=== PATIENT | female | born 1945 | race Caucasian/White ===

== ENCOUNTER 2019-06-26 23:48 | Emergency (ER) | payer MEDICARE, MEDICAID, SELFPAY ==
--- NOTE | ~2019-06-26 | CT_ITS ---
EXAMINATION: CT brain wo con DATE: 06/27/2019 01:17 INDICATION: Altered mental status TECHNIQUE: Computed tomography (CT) of the head was performed without intravenous contrast. The mA wa s adjusted according to patient size. Iterative reconstruction technique was employed. Exam dose: 60 5.33 mGy-cm total exam DLP. COMPARISON: 03/11/2018 CT brain FINDINGS: There is moderate global cerebellar and cerebral volume loss. No intracranial mass lesion or hemorrhage or cerebrovascular accident is evident. No midline shift or mass effect. No subdural or epidural hematoma. There are prominent bilateral carotid siphon internal carotid artery calcifications. Probable pilar cysts in posterior scalp near convexity. No fracture or bone destruction of the cranial vault. Left parietal osteoma. There are some fluid levels in the right maxillary and both sphenoid sinuses and some soft tissue thi ckening of the ethmoid air cells. IMPRESSION: No acute intracranial finding Sinus disease Reviewed, dictated and finalized at [facility]. Reviewed, dictated and finalized at [facility].
--- NOTE | ~2019-06-26 | XR_ITS ---
XR chest 1V portable DATE: 06/27/2019 00:38 INDICATION: Cough. Covid positive patient. TECHNIQUE: Portable upright AP chest on 06/27/2019 at 0034 hours COMPARISON: 07/29/2018 portable AP chest FINDINGS: There is prominent patchy infiltrate throughout the right lung and primarily left mid and l ower lung zones. There is elevation of the right leaf of the diaphragm. Cardiomegaly. No pleural effusion or pneumothorax is evident. Diffuse osteopenia. IMPRESSION: Extensive bilateral pulmonary arteries, right greater than left Elevation right diaphragm Reviewed, dictated and finalized at [facility].
--- NOTE | 2019-06-26 23:39 | ED.GENADULT ---
HPI - General Adult General Chief complaint: Unspecified Stated complaint: dehydration? Source: patient and EMS Mode of arrival: ambulatory History of Present Illness HPI narrative: Patient is a 73-year-old female who presents for evaluation of possible dehydration. Per EMS and nursing report, patient has been diagnosed with coronavirus, family was concerned she is becoming dehydrated. Patient states she has been tolerating oral intake without nausea or vomiting. She has had oxygen saturations above 92% on room air, however the fci place her on 1 L for comfort with saturations improving to 96%. Patient denied any head, chest, belly pain or shortness of breath. Patient reports cough, decreased oral intake. She reports lack of appetite. Pt state she did not want to come to the emergency department. Patient has a history of tibia fracture, states that she has been nonambulatory for 20 years. Patient is a DNR patient, but patient approves intubation and peripheral pressors if needed. Patient does have a history of frequent urinary tract infections. Related Data Home Medications Medication Instructions Recorded Confirmed acetaminophen 325 mg capsule 325 mg PO Q6H PRN 02/16/19 aspirin 325 mg tablet 325 mg PO DAILY 02/16/19 clonazepam 1 mg tablet 1 mg PO DAILY 02/16/19 docusate sodium 100 mg capsule 100 mg PO DAILY 02/16/19 ergocalciferol (vitamin D2) 50,000 unit PO 02/16/19 unit tablet fluticasone propionate 50 1 spray NASAL DAILY PRN 02/16/19 mcg/actuation nasal spray,suspension furosemide 40 mg/4 mL oral solution 10 mg PO DAILY 02/16/19 gabapentin 300 mg/6 mL (6 mL) oral 100 mg PO DAILY 02/16/19 solution guaifenesin 600 mg tablet, 600 mg PO BID PRN 02/16/19 extended release 12 hr loperamide 2 mg tablet 2 mg PO Q4H 02/16/19 meloxicam 7.5 mg tablet 7.5 mg PO DAILY 02/16/19 midodrine 5 mg tablet 5 mg PO TID 02/16/19 mirabegron 25 mg tablet,extended 25 mg PO DAILY 02/16/19 release 24 hr omeprazole 20 mg capsule,delayed 20 mg PO DAILY 02/16/19 release ondansetron 4 mg oral soluble film 4 mg PO DAILY 02/16/19 polyethylene glycol 3350 17 8.5 gm PO DAILY PRN 02/16/19 gram/dose oral powder pravastatin 20 mg tablet 20 mg PO DAILY 02/16/19 psyllium husk 0.52 gram capsule 0.52 gm PO DAILY 02/16/19 sennosides 8.6 mg-docusate sodium 1 tab-cap PO DAILY 02/16/19 50 mg capsule simethicone 80 mg chewable tablet 80 mg PO BID 02/16/19 terbinafine HCl 250 mg tablet 250 mg PO DAILY 02/16/19 tizanidine 2 mg capsule 2 mg PO Q12H PRN 02/16/19 oseltamivir 75 mg capsule 75 mg PO DAILY 05/25/19 trazodone 50 mg tablet 50 mg PO TID 05/25/19 Allergies Allergy/AdvReac Type Severity Reaction Status Date / Time adhesive Allergy Unknown BLISTERS Verified 05/25/19 12:31 Review of Systems Review of Systems: Narrative: CONSTITUTIONAL: Denies fever, chills, or sweats. EYES: Denies visual changes, redness, or discharge. ENT: Reports congestion CARDIOVASCULAR: Denies chest pain RESPIRATORY: Reports cough,denies dyspnea GASTROINTESTINAL: Denies abdominal pain, nausea, vomiting, or diarrhea. GENITOURINARY: Denies dysuria or hematuria. SKIN: Denies rash or itching. MUSCULOSKELETAL: Denies back pain, denies joint pain,reports myalgias NEUROLOGIC: Denies headache, numbness, reports chronic leg weakness PMFSH Past Medical History Medical History (Updated 06/27/19 @ 01:46 by Kaitlin Kay MD) Anemia Anxiety disorder Ataxia DVT (deep venous thrombosis) Gastro-esophageal reflux Hyperlipidemia Hypotension Seizure Tinea unguium Urinary tract infection Vitamin A deficiency Weakness Wheelchair dependence Social History Social History Smoking status: Never smoker Second hand tobacco smoke exposure: No Alcohol intake: never Gender identity (if verbalized by the patient): Female Exam Narrative: Exam Narrative: GENERAL: Awake, alert,
[2019-06-27] VITALS (8 sets, daily range): BP systolic 111–126; BP diastolic 48–76; PULSE 59–76; RESP 20–25; TEMP 36.7–37.2; O2SAT 89–98
--- NOTE | 2019-06-27 00:05 | ECG_ITS ---
Measurements Intervals [place] Rate: 65 P: 78 GA: 184 QRS: 34 QRSD: 80 T: 10 QT: 438 QTc: 456 Interpretive Statements SINUS RHYTHM NONSPECIFIC T-WAVE ABNORMALITY- ANT/INF LEADS BORDERLINE ECG Electronically Signed On 06-27-2019 8:09:53 CDT by Nnamdi Liu D.O.
--- NOTE | 2019-06-27 00:31 | PC.NURSE ---
pt placed on 1L o2 at this time due to low o2 sats. edp notified.
[2019-06-27] MEDS: SODIUM CHLORIDE 0.9% IV 500 ML (00:32)
[2019-06-27 00:43] LABS: Hematocrit 36.2 % (37.0-47.0); Hemoglobin 11.9 g/dL (12.0-15.0); Immature Granulocyte Absolute 0.02 K/mm3 (0.00-0.031); Immature Granulocyte Percent A 0.7 % (0-0.5); Lymphocytes Absolute Auto 0.55 K/mm3 (0.9-3.2); Lymphocytes Percent Auto 19.5 % (18.3-44.2); Mean Corpuscular HGB Conc 32.9 g/dl (32-36); Mean Corpuscular Hemoglobin 29.7 pg (26-34); Mean Corpuscular Volume 90.3 fl (80-100); Mean Platelet Volume 9.1 fl (7.4-10.4); Monocytes Absolute Auto 0.3 K/mm3 (0.1-0.6); Monocytes Percent Auto 10.3 % (2.6-8.5); Neutrophils Percent Auto 69.5 % (45.5-73.1); Platelet Count Result 162 k/mm3 (150-375); Red Blood Count 4.01 M/mm3 (4.2-5.4); Red Cell Distribution Width 13.4 % (11.5-14.5); White Blood Count 2.8 K/mm3 (4.5-10.0)
[2019-06-27] MEDS: SODIUM CHLORIDE 0.9% IV 1,000 ML 999 ML IV CONT (00:43)
[2019-06-27] MEDS: ONDANSETRON INJ 4 MG/2 ML VIAL IV PUSH (00:43)
[2019-06-27 00:47] LABS: Alanine Aminotransferase 36 U/L (4-35); Albumin Level 3.7 g/dL (3.5-5.1); Alkaline Phosphatase 275 U/L (38-126); Aspartate Amino Transferase 82 U/L (14-36); Bilirubin,Total 0.8 mg/dL (0.2-1.3); Blood Urea Nitrogen 20 mg/dL (7-17); Calcium 8.5 mg/dL (8.4-10.2); Carbon Dioxide 29 mmol/L (22-30); Chloride 102 mmol/L (98-107); Estimated Glomerular Filt Rate 49; Glucose 119 mg/dL (65-105); Potassium 3.4 mmol/L (3.4-5.0); Sodium 137 mmol/L (137-145)
[2019-06-27 00:48] LABS: Add Urine Microscopic? YES; Appearance Urine Cloudy (Clear); Bacteria Urine 2+ /hpf; Bilirubin Urine Negative (Negative); Blood Urine 2+ (Negative); Color Urine Amber (Yellow); Glucose Urine UA Negative (Negative); Ketones Urine Trace mg/dL (Negative); Leukocyte Esterase Ur 2+ LEU/UL (Negative); Mucus Urine Rare /lpf; Nitrate Urine Negative (Negative); Protein Urine 2+ mg/dL (Negative); Specific Grav Ur 1.018 (1.001-1.035); Squamous Epithelial Cell Urine Many /hpf (Few); WBC Urine 31-50 /hpf
[2019-06-27 01:02] LABS: Lactic Acid Reflex 0.9 mmol/L (0.7-2.1)
[2019-06-27] MEDS: CEPHALEXIN 500 MG CAPSULE PO (01:36)
--- NOTE | 2019-06-27 01:54 | PC.NURSE ---
FAMILY SPOKE WITH ED IDR[facility] AND GIVEN UPDATE. PATIENT [facility] BE S[facility]. FAMILY AND FACILITY AWARE.
--- NOTE | 2019-06-27 04:14 | PC.NURSE ---
0151-called [facility] to request transport..ETA [id number]- called [facility] for ETA update. ETA [id number] 0411- called [facility] for ETA update. ETA 15 minutes.
--- NOTE | 2019-06-27 04:21 | PC.NURSE ---
[facility] called and updated ETA to [phone]
--- NOTE | 2019-06-27 04:42 | PC.NURSE ---
Called [facility] to request transport. [facility] declined.
== END 2019-06-27 06:04 | disposition home or self-care (01) ==
PROVIDERS: Emergency Provider Emergency Medicine; PCP Family Medicine
DX: U07.1 COVID-19 (principal); N39.0 Urinary tract infection, site not specified; D64.9 Anemia, unspecified; F41.9 Anxiety disorder, unspecified; Z86.718 Personal history of other venous thrombosis and embolism; K21.9 Gastro-esophageal reflux disease without esophagitis; E78.5 Hyperlipidemia, unspecified; E50.9 Vitamin A deficiency, unspecified; Z99.3 Dependence on wheelchair; Z66 Do not resuscitate; Z79.82 Long term (current) use of aspirin
CPT/HCPCS: 36415; 70450; 71045; 80053; 81001; 83605; 85025; 87077; 87086; 87088; 87186; 93005; 96361; 96374; 99284; A9270; J2405; J7030; J7040

== ENCOUNTER 2020-01-26 10:47 | Outpatient (CLI) | payer MEDICARE, MEDICAID, SELFPAY ==
--- NOTE | ~2020-01-26 | US_ITS ---
EXAMINATION: US abdomen complete DATE: 01/26/2020 11:45 INDICATION: Secondary thrombocytopenia TECHNIQUE: Multiple grayscale and Doppler ultrasound images of the abdomen were obtained. COMPARISON: CT, 02/06/2013 FINDINGS: Bowel gas obscures visualization of the pancreas. The liver demonstrates increased echogeni city, heterogenous echotexture, and decreased through transmission. There is a 2.8 cm cyst of the mykel er. No surface nodularity. Normal hepatopetal flow in the main portal vein. The gallbladder is surgic ally absent. The normal common bile duct measures 7 mm. The visualized portions of the aorta are norm al. The kidneys are not well demonstrated. The right kidney measures 7.9 x 3.6 x 4.6 cm. The left kidney measures 7.3 x 3.5 x 4.1 cm. The kidneys demonstrate normal parenchymal echogenicity. There is no hyd ronephrosis. The enlarged spleen measures 15.1 cm IMPRESSION: 1. Splenomegaly. 2. Diffuse hepatic steatosis. Reviewed, dictated and finalized at [facility]. 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
[2020-01-26 12:10] LABS: Alanine Aminotransferase 32 U/L (4-35); Albumin Level 3.9 g/dL (3.5-5.1); Alkaline Phosphatase 86 U/L (38-126); Anion Gap 9 mmol/L (8-16); Aspartate Amino Transferase 32 U/L (14-36); Bilirubin,Total 0.9 mg/dL (0.2-1.3); Blood Urea Nitrogen 17 mg/dL (7-17); Calcium 9.3 mg/dL (8.4-10.2); Carbon Dioxide 24 mmol/L (22-30); Chloride 107 mmol/L (98-107); Estimated Glomerular Filt Rate 44; Glucose 164 mg/dL (65-105); Lactate Dehydrogenase 368 U/L (313-618); Potassium 4.5 mmol/L (3.4-5.0); Sodium 140 mmol/L (137-145)
[2020-01-26 12:31] LABS: Basophils Percent Auto 0.7 % (0.2-1.2); Eosinophils Absolute Auto 0.3 K/mm3 (0-0.3); Eosinophils Percent Auto 6.5 % (0-4.4); Hematocrit 42.5 % (37.0-47.0); Hemoglobin 13.9 g/dL (12.0-15.0); Immature Granulocyte Absolute 0.02 K/mm3 (0.00-0.031); Immature Granulocyte Percent A 0.4 % (0-0.5); Immature Platelet Fraction Pct 2.5 % (0.9-11.2); Immature Reticulocyte Fraction 11.8 % (3.0-15.9); Lymphocytes Percent Auto 17.4 % (18.3-44.2); Mean Corpuscular HGB Conc 32.7 g/dl (32-36); Mean Corpuscular Volume 91.6 fl (80-100); Mean Platelet Volume 10.5 fl (7.4-10.4); Monocytes Absolute Auto 0.3 K/mm3 (0.1-0.6); Monocytes Percent Auto 6.7 % (2.6-8.5); Neutrophils Absolute Auto 3.2 K/mm3 (1.3-6.7); Neutrophils Percent Auto 68.3 % (45.5-73.1); Platelet Count Result 33 k/mm3 (150-375); Red Blood Count 4.64 M/mm3 (4.2-5.4); Red Cell Distribution Width 12.6 % (11.5-14.5); Reticulocyte Hemoglobin Conten 32.6 pg (28.2-35.7); Reticulocyte Percent 1.57 % (0.7-4.3); Reticulocytes Absolute 0.07 B/L (32.2-175.7); White Blood Count 4.6 K/mm3 (4.5-10.0)
[2020-01-26 12:39] LABS: Iron 48 ug/dL (37-170)
[2020-01-26 12:48] LABS: Percent Iron Saturation 18 % (20-50)
== END 2020-01-26 10:48 | disposition home or self-care (01) ==
PROVIDERS: PCP Family Medicine; Visit Provider Internal Medicine Hematology & Oncology
DX: D69.59 Other secondary thrombocytopenia (principal); R16.1 Splenomegaly, not elsewhere classified; K76.0 Fatty (change of) liver, not elsewhere classified
CPT/HCPCS: 36415; 76700; 80053; 82607; 82728; 82746; 83540; 83550; 83615; 85025; 85046; 85055

== ENCOUNTER 2020-02-15 13:15 | Emergency (ER) | payer MEDICARE, MEDICAID, SELFPAY ==
[2020-02-15] VITALS (7 sets, daily range): BP systolic 98–117; BP diastolic 60–73; PULSE 56–63; RESP 14–19; TEMP 36.9; O2SAT 95–99
--- NOTE | 2020-02-15 13:35 | PC.NURSE ---
resting on stretcher. on monitor. has call light in reach. patient aware of expected wait time. patient now states she was scheduled for an appointment at this hospital today for a biopsy of some nodes and an ultrasound of her chest. no other details given.
--- NOTE | 2020-02-15 15:32 | ED.GENADULT ---
HPI - General Adult General Chief complaint: Wound/Laceration Stated complaint: Red Streak inner thigh Time Seen by Provider: 02/15/20 13:46 Source: patient Mode of arrival: EMS Limitations: no limitations History of Present Illness HPI narrative: Patient presents with chief complaint of red streak on the anterior aspect of her right thigh earlier today. Patient states the streak started to faint but she already cannot be admitted so she presented to the emergency department. Patient denies fever, chills, nausea, vomiting. Patient states that she is due to have blood work and imaging done by Dr. Goddard. Patient wants those testings performed in the emergency department. The patient states that she is now resolved. There is not pain or any other abnormalities to the area. Patient has been bedbound for 20 years due to brain tumor. Patient denies chest pain, shortness of breath, diaphoresis or any other emergent symptoms. Related Data Home Medications Medication Instructions Recorded Confirmed clonazepam 1 mg tablet 1 mg PO DAILY 02/16/19 08/24/19 ergocalciferol (vitamin D2) 50,000 unit PO 02/16/19 08/24/19 unit tablet fluticasone propionate 50 1 spray NASAL DAILY PRN 02/16/19 08/24/19 mcg/actuation nasal spray,suspension gabapentin 300 mg/6 mL (6 mL) oral 100 mg PO DAILY 02/16/19 08/24/19 solution midodrine 5 mg tablet 5 mg PO TID 02/16/19 08/24/19 omeprazole 20 mg capsule,delayed 20 mg PO DAILY 02/16/19 08/24/19 release pravastatin 20 mg tablet 20 mg PO DAILY 02/16/19 08/24/19 trazodone 50 mg tablet 50 mg PO TID 05/25/19 08/24/19 albuterol sulfate 90 mcg/actuation 1 inhalation INHALATION Q4-6H PRN 08/24/19 08/24/19 breath activated powder inhaler gabapentin 300 mg TID 02/15/20 linaclotide [Linzess] mcg 02/15/20 mirabegron [Myrbetriq] mg PO 02/15/20 tramadol mg 02/15/20 Allergies Allergy/AdvReac Type Severity Reaction Status Date / Time adhesive Allergy Unknown BLISTERS Verified 02/15/20 14:06 Review of Systems Review of Systems: Narrative: CONSTITUTIONAL: Denies fever, chills, or sweats. EYES: Denies visual changes, redness, or discharge. ENT: Denies rhinorrhea, congestion, sore throat, or otalgia. CARDIOVASCULAR: Denies chest pain, palpitations, or edema. RESPIRATORY: Denies cough or dyspnea. GASTROINTESTINAL: Denies abdominal pain, nausea, vomiting, or diarrhea. GENITOURINARY: Denies dysuria or hematuria. SKIN: Reports resolved rash denies itching. MUSCULOSKELETAL: Denies back pain, joint pain, or myalgia. NEUROLOGIC: Denies headache, numbness, dizziness, or weakness. PSYCHIATRIC: Denies anxiety or depression. [facility] Past Medical History Medical History (Updated 02/15/20 @ 15:42 by Demetrio Samuel PA-C) Anemia Anxiety disorder Ataxia DVT (deep venous thrombosis) Gastro-esophageal reflux Hyperlipidemia Hypotension Seizure Tinea unguium Urinary tract infection Vitamin A deficiency Weakness Wheelchair dependence Family History Family History Sibling Patient's sister is in good health Patient's brother is in good health Mother Family history of malignant neoplasm of ovary, Onset Age: 32 Patient's mother is Father Patient's father is Acute myocardial infarction Social History Social History Smoking status: Never smoker Second hand tobacco smoke exposure: No Alcohol intake: never Gender identity (if verbalized by the patient): Female Exam Narrative: Exam Narrative: GENERAL: Well-appearing, well-nourished, and in no acute distress. HEAD: Normocephalic, atraumatic. NECK: Supple. No adenopathy or masses. No carotid bruits or JVD CHEST: Clear to auscultation. No respiratory distress. No wheezes rales or rhonchi HEART: Regular rate and rhythm. No murmur heard. Normal peripheral pulses. ABDOMEN: Soft, nontender, nondiste
--- NOTE | 2020-02-15 16:03 | PC.NURSE ---
reviewed discharge information with patient and daughter. daughter states they will need EMS to take patient home. patient is unable to sit upright.
--- NOTE | 2020-02-15 17:05 | PC.NURSE ---
patient in room. waiting for EMS for transport home. daughter and patient aware. paperwork done.
--- NOTE | 2020-02-15 17:25 | PC.NURSE ---
[facility] here to transport patient back to her home. report given. daughter and patient aware. patient signed discharge paperwork and released to EMS for transport home.
== END 2020-02-15 17:27 | disposition home or self-care (01) ==
PROVIDERS: Emergency Provider Family Medicine; PCP Family Medicine
DX: Z04.89 Encounter for examination and observation for other specified reasons (principal); D49.6 Neoplasm of unspecified behavior of brain; F41.9 Anxiety disorder, unspecified; Z86.718 Personal history of other venous thrombosis and embolism; E50.9 Vitamin A deficiency, unspecified; Z87.440 Personal history of urinary (tract) infections; Z86.2 Personal history of diseases of the blood and blood-forming organs and certain disorders involving the immune mechanism
CPT/HCPCS: 99281

== ENCOUNTER 2020-02-24 12:37 | Outpatient (CLI) | payer MEDICARE, MEDICAID, SELFPAY ==
--- NOTE | ~2020-02-24 | CT_ITS ---
EXAMINATION: CT chest abdomen pelvis w con EXAM DATE: 02/24/2020 13:26 INDICATION: Splenomegaly. TECHNIQUE: Spiral CT of the chest, abdomen and pelvis was performed following intravenous injection o f 100 mL Omnipaque 350. Axial, coronal and sagittal images were reviewed. Coronal maximum intensity pixel images of chest reviewed. The dose-length product (DLP) for this examination was 872.49 mGy-c m. The exposure was tailored according to patient size (auto mA exposure control), and iterative rec onstruction (ASIR) was used as additional dose reduction technique. Comparison is made to prior exami nation from 02/06/2013. FINDINGS: CHEST: There is right upper lobe ill-defined region measuring up to 2 cm, similar appearing right lo wer lobe region posteriorly. There is more well-defined right lower lobe nodule of soft tissue just a angelia the right diaphragm measuring 8 mm. Some ill-defined bilateral groundglass opacities. Uncertain whether or not this is acute or chronic airspace disease. Differential diagnosis includes acute infec tion, cryptogenic organizing pneumonia, cancer not excludable. No central pulmonary emboli. There are no pleural or pericardial effusions. Tracheobronchial tree is patent. There is no mediastinal, h ilar or axillary lymphadenopathy. There is no pneumothorax. Mild cardiomegaly. There is mild cor onary arterial calcification, arterial sclerosis. ABDOMEN PELVIS: There is a hypodensity in the left liver lobe medial segment measuring 3.3 cm consist ent with a cyst. The spleen measures 12.7 cm in its greatest craniocaudal dimension, within normal s ize limits. Adrenal glands, pancreas are unremarkable. There are cholecystectomy clips. Portal and splenic veins are patent. Kidneys enhance symmetrically. There is no hydronephrosis. Scattered ed ons of left renal cortical scarring contributing to moderate left renal atrophy. The uterus is not i dentified and has likely been surgically resected. enhancing bladder mucosa with mildly thickened wa ll which is also indistinct, appearance is suspicious for acute cystitis. There is no retroperitonea l or pelvic lymphadenopathy. There is mild scattered arteriosclerotic disease. The appendix is normal. The stomach and small bowel are unremarkable. There is expected amount of c olonic stool. No free intraperitoneal gas. 6 mm left iliac sclerotic focus likely bone island. IMPRESSION: 1. Several right lung opacities, right lower lobe nodule. Acute versus chronic. Consider infection, cryptogenic organized pneumonia, but cancer not excludable. If patient does not have infection clinic ally consider 1-3 month follow-up CT. 2. Left renal cortical scarring, atrophy. 3. Enhancing bladder mucosa suspicious for acute cystitis. 4. Cardiomegaly. 5. Normal spleen size. Reviewed, dictated and finalized at location [facility]. 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 Several right lung opacities, right lower lobe nodule. Acute versus chronic . Consider infection, cryptogenic organized pneumonia, but cancer not excludabl e. If patient does not have infection clinically consider 1-3 month follow-up C T. 2. Left renal cortical scarring, atrophy. 3. Enhancing bladder mucosa suspicious for acute cystitis. 4. Cardiomegaly. 5. Normal spleen size.
== END 2020-02-24 12:38 | disposition home or self-care (01) ==
PROVIDERS: PCP Family Medicine; Visit Provider Internal Medicine Hematology & Oncology
DX: R16.1 Splenomegaly, not elsewhere classified (principal); I51.7 Cardiomegaly; R91.8 Other nonspecific abnormal finding of lung field
CPT/HCPCS: 71260; 74177; Q9967

== ENCOUNTER 2020-02-28 13:40 | Outpatient (CLI) | payer MEDICARE, MEDICAID, SELFPAY ==
[2020-02-28 14:07] LABS: Immature Reticulocyte Fraction 11.9 % (3.0-15.9); Reticulocyte Percent 1.65 % (0.7-4.3); Reticulocytes Absolute 0.08 B/L (32.2-175.7)
[2020-02-28 16:33] LABS: Lactate Dehydrogenase 416 U/L (313-618)
[2020-03-01 21:50] LABS: Albumin 3.6 g/dL (3.8-4.8); Alpha 1 Globulin 0.3 g/dL (0.2-0.3); Alpha 2 Globulin 0.7 g/dL (0.5-0.9); Beta 1 Globulin 0.4 g/dL (0.4-0.6); Gamma Globulin 1.3 g/dL (0.8-1.7); Protein, Total 6.7 g/dL (6.1-8.1)
[2020-03-05 20:57] LABS: Platelet Ab,Indirect (IgA) POSITIVE (NEGATIVE); Platelet Ab,Indirect (IgG) NEGATIVE (NEGATIVE); Platelet Ab,Indirect (IgM) POSITIVE (NEGATIVE)
== END 2020-02-28 13:41 | disposition home or self-care (01) ==
LOC: ANHLAB 13:42
PROVIDERS: PCP Family Medicine; Visit Provider Internal Medicine Hematology & Oncology
DX: R16.1 Splenomegaly, not elsewhere classified (principal); D69.59 Other secondary thrombocytopenia
CPT/HCPCS: 36415; 83615; 84155; 84165; 85046; 86022; 88184; 88185

== ENCOUNTER 2020-07-19 13:19 | Inpatient (IN) | payer MEDICARE, MEDICAID, SELFPAY ==
[2020-07-19] VITALS (8 sets, daily range): BP systolic 106–158; BP diastolic 45–82; PULSE 51–57; RESP 13–18; TEMP 35.6–36.6; O2SAT 96–99
--- NOTE | ~2020-07-19 | CT_ITS ---
EXAMINATION: CT brain wo con EXAM DATE: 07/19/2020 14:33 INDICATION: Bilateral lower extremity weakness. Dizziness. TECHNIQUE: Spiral CT of the head was performed without contrast. Axial, coronal and sagittal images were reviewed. The dose-length product (DLP) for this examination was 605.33 mGy-cm. The exposure w as tailored according to patient size, and iterative reconstruction (ASIR) was used as additional dos e reduction technique. Comparison is made to prior examination from 06/27/2019. FINDINGS: There is no acute intraparenchymal hemorrhage. No evidence of intraparenchymal brain mass lesion. No evidence of acute infarction. Please note that initial head CT has limited sensitivity f or small or acute infarctions. There is mild periventricular and subcortical hypodensity, nonspecific but probably related to small vessel ischemic disease. There is moderate prominence of the sulci a nd ventricles related to cerebral atrophy. There is intracranial carotid arteriosclerosis. There a re no extra-axial collections. There is no mass effect or midline shift. The orbits are unremarkabl e. Soft tissue is unremarkable. The visualized sinuses and mastoid air cells are well aerated. Be nign osseous hypertrophy of the left parietal bone along the outer table. IMPRESSION: 1. No acute intracranial findings. 2. Chronic age related findings. Reviewed, dictated and finalized at location B.
--- NOTE | ~2020-07-19 | MR_ITS ---
EXAMINATION: MR brain/brain stem wo con DATE: 07/20/2020 08:31 INDICATION: Extremity weakness. TECHNIQUE: Magnetic resonance imaging (MRI) of the brain and brainstem was performed without intraven ous contrast. Sequences included sagittal and axial T1-weighted FSE, axial diffusion-weighted FS EPI, axial T2*-weighted GRE, axial T2-weighted FLAIR Propeller, and axial T2-weighted Propeller. Apparent diffusion coefficient (ADC) maps were created. COMPARISON: Head CT 07/19/2020 FINDINGS: There are scattered areas of nonspecific increased T2-weighted signal intensity in the cere bral white matter, which is within normal limits for the patient's age. There is no intracranial hemo rrhage, acute infarction, or abnormal intracranial mass lesion. The ventricles are normal in size. Th ere are likely changes of ocular lens replacement surgeries. The paranasal sinuses are clear. The mas toid air cells are normal. IMPRESSION: 1. Normal aging brain. Reviewed, dictated and finalized at location A. IMPRESSION: 1. Normal aging brain.
--- NOTE | ~2020-07-19 | CT_ITS ---
EXAMINATION:CT chest high resolution wo nv DATE: 07/20/2020 08:00 INDICATION: Abnormal chest radiograph. TECHNIQUE: Computed tomography (CT) of the chest was performed without intravenous contrast. Automate d exposure control and iterative reconstruction technique were employed. The dose-length product (DLP ) was 282.92 mGy-cm. COMPARISON: Chest single view 07/19/2020, chest CT 02/24/2020 FINDINGS: There is a small left pleural effusion. There is chronic elevation of right hemidiaphragm. There are areas of mild groundglass opacity and subsegmental atelectasis. There is mosaic attenuation in the lungs, likely small airways disease. There are a few stable nodules in the lungs measuring up to 4 mm. A calcified right lung nodule and calcified right hilar lymph nodes are consistent with old granulomatous disease. There are patchy airspace opacities in right upper lobe that are stable from 02/24/20. In right lower lobe, an area of airspace opacity has worsened, but a nodule and some groundgl ass opacities have improved. No bronchiectasis or honeycombing. The heart size is normal. No pericard ial effusion. There is mild mediastinal and bilateral hilar lymphadenopathy. There is a 3.4 cm cyst i n the liver. There is diffuse hepatic steatosis. There is mild thoracic spondylosis. There is a benig n bone island in T4. IMPRESSION: 1. Stable diffuse lung disease. The differential diagnosis includes [id number] lung disease, pneum onia, organizing pneumonia, eosinophilic pneumonia, and hypersensitivity pneumonitis. Some component of low-grade adenocarcinoma cannot be excluded. 2. Small left pleural effusion, new from 02/24/2020. Reviewed, dictated and finalized at location A. IMPRESSION: 1. Stable diffuse lung disease. The differential diagnosis includes post-COVID- 19 lung disease, pneumonia, organizing pneumonia, eosinophilic pneumonia, and h ypersensitivity pneumonitis. Some component of low-grade adenocarcinoma cannot be excluded. 2. Small left pleural effusion, new from 02/24/2020.
--- NOTE | ~2020-07-19 | XR_ITS ---
EXAMINATION: XR chest 1V portable DATE: 07/19/2020 14:09 INDICATION: Lower limb weakness TECHNIQUE: frontal view of the chest was obtained. COMPARISON: Chest radiograph dated 06/27/[address] dated 03/05/2020 FINDINGS: Persistent nodular opacity in the right upper lobe along the minor fissure. Mild linear discoid atele ctasis at the left lower lung zone. No pulmonary edema, pleural effusion or pneumothorax. The cardiom ediastinal silhouette is normal. IMPRESSION: 1. Persistent nodular opacity in the right upper lobe represents sequela of prior infection, organizi ng pneumonia or malignancy. Given the 5 months elapsed since the prior CT would recommend repeat low- dose noncontrast chest CT to assess for interval change. Reviewed, dictated and finalized at location A. IMPRESSION: 1. Persistent nodular opacity in the right upper lobe represents sequela of telma or infection, organizing pneumonia or malignancy. Given the 5 months elapsed si nce the prior CT would recommend repeat low-dose noncontrast chest CT to assess for interval change.
--- NOTE | 2020-07-19 13:43 | ECG_ITS ---
Measurements Intervals [place] Rate: 52 P: 43 MO: 190 QRS: 33 QRSD: 76 T: 31 QT: 432 QTc: 404 Interpretive Statements SINUS BRADYCARDIA BORDERLINE ECG Electronically Signed On 07-19-2020 15:50:07 CDT by Nnamdi Liu D.O.
[2020-07-19 14:07] LABS: Glucose Point of Care 123 mg/dl (65-105)
[2020-07-19 14:32] LABS: Basophils Percent Auto 0.5 % (0.2-1.2); Eosinophils Absolute Auto 0.1 K/mm3 (0-0.3); Hematocrit 39.2 % (37.0-47.0); Hemoglobin 12.8 g/dL (12.0-15.0); Immature Granulocyte Absolute 0.02 K/mm3 (0.00-0.031); Immature Granulocyte Percent A 0.5 % (0-0.5); Lymphocytes Absolute Auto 0.91 K/mm3 (0.9-3.2); Lymphocytes Percent Auto 20.8 % (18.3-44.2); Mean Corpuscular HGB Conc 32.7 g/dl (32-36); Mean Corpuscular Volume 88.7 fl (80-100); Mean Platelet Volume 8.8 fl (7.4-10.4); Monocytes Absolute Auto 0.4 K/mm3 (0.1-0.6); Monocytes Percent Auto 8.7 % (2.6-8.5); Neutrophils Absolute Auto 2.9 K/mm3 (1.3-6.7); Neutrophils Percent Auto 66.5 % (45.5-73.1); Platelet Count Result 133 k/mm3 (150-375); Red Blood Count 4.42 M/mm3 (4.2-5.4); Red Cell Distribution Width 14.5 % (11.5-14.5); White Blood Count 4.4 K/mm3 (4.5-10.0)
[2020-07-19 14:39] LABS: Prothrombin Time 13.5 Seconds (11.1-14.7)
[2020-07-19 14:40] LABS: Partial Thromboplastin Time 26.2 SECONDS (22.3-36.8)
[2020-07-19 14:45] LABS: Anion Gap 8 mmol/L (8-16); Blood Urea Nitrogen 28 mg/dL (7-17); Calcium 9.4 mg/dL (8.4-10.2); Carbon Dioxide 23 mmol/L (22-30); Chloride 111 mmol/L (98-107); Estimated CRCL calculation 26 ml/min; Estimated Glomerular Filt Rate 32; Glucose 112 mg/dL (65-105); Potassium 4.4 mmol/L (3.4-5.0); Sodium 142 mmol/L (137-145)
[2020-07-19 14:57] LABS: Troponin I < 0.012 ng/mL (0.000-0.034)
--- NOTE | 2020-07-19 14:57 | ED.WEAKNESS ---
HPI - Weakness General Chief complaint: Weakness Stated complaint: WEAKNESS/L ARM PAIN Time Seen by Provider: 07/19/20 13:28 History of Present Illness HPI Narrative: Patient is a 74-year-old female who presents ER with weakness. Reports she has been unable to walk for 20 years but can usually move her legs enough while she is laying in bed to put on her pants. Today she is having increased difficulty with moving her legs. Additionally she reports over the last couple days she has had weakened handgrips and has been slightly dizzy like she is sitting on about going back and forth. 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 No fevers or chills or sweats. No slurred speech or facial droop. No alleviating factors per patient. Related Data Home Medications Medication Instructions Recorded Confirmed clonazepam 1 mg tablet 1 mg PO DAILY PRN 02/16/19 07/19/20 ergocalciferol (vitamin D2) 50,000 50,000 unit PO WEEKLY 02/16/19 07/19/20 unit tablet fluticasone propionate 50 1 spray NASAL DAILY PRN 02/16/19 07/19/20 mcg/actuation nasal spray,suspension midodrine 5 mg tablet 5 mg PO DAILY 02/16/19 07/19/20 omeprazole 20 mg capsule,delayed 20 mg PO DAILY 02/16/19 07/19/20 release pravastatin 20 mg tablet 20 mg PO DAILY 02/16/19 07/19/20 trazodone 50 mg tablet 50 mg PO HS 05/25/19 07/19/20 gabapentin 300 mg TID 02/15/20 07/19/20 mirabegron [Myrbetriq] 25 mg PO DAILY 02/15/20 07/19/20 tramadol 50 mg PO Q6-8H PRN 02/15/20 07/19/20 Fiber-Tabs 625 mg PO DAILY 07/19/20 07/19/20 Linzess 145 mcg PO DAILY 07/19/20 07/19/20 nitrofurantoin macrocrystal 50 mg PO DAILY 07/19/20 07/19/20 Allergies Allergy/AdvReac Type Severity Reaction Status Date / Time adhesive Allergy Unknown BLISTERS Verified 07/19/20 20:39 Review of Systems Review of Systems: All systems reviewed & are unremarkable except as noted in HPI and below Constitutional: Constitutional: Denies chills, Denies fever(s) and Reports weakness ENT: Denies nasal congestion and Denies sore throat Musculoskeletal: Musculoskeletal: Denies arthralgias, Denies joint swelling and Denies muscle cramps Neurologic: Denies confusion, Reports dizziness, Denies numbness and Reports weakness PMFSH Past Medical History Medical History (Updated 07/19/20 @ 21:13 by David Stoner MD) Anemia Anxiety disorder Ataxia DVT (deep venous thrombosis) Gastro-esophageal reflux Hyperlipidemia Hypotension Seizure Tinea unguium Urinary tract infection Vitamin A deficiency Weakness Wheelchair dependence Family History Family History Sibling Patient's sister is in good health Patient's brother is in good health Mother Family history of malignant neoplasm of ovary, Onset Age: 32 Patient's mother is Father Patient's father is Acute myocardial infarction Social History Social History Smoking status: Never smoker Second hand tobacco smoke exposure: No Alcohol intake: never Substance use: never Gender identity (if verbalized by the patient): Female Spiritual care concerns: No Exam Narrative: Exam Narrative: GENERAL: Well-appearing, well-nourished, and in no acute distress. HEAD: Normocephalic, atraumatic. ENT: Mucous membranes moist. CHEST: Clear to auscultation. No respiratory distress. HEART: Regular rate and rhythm. Normal peripheral pulses. ABDOMEN: Soft, nontender, nondistendeds. EXTREMITIES: 2/5 strength bilateral lower extremities. Unable to lift leg off the bed. Normal strength in upper extremities. SKIN: Warm, dry, no rash. NEURO: Cranial nerves II through XII intact. Alert and oriented x3. PSYCH: Normal mood and affect. Course Course Emergency Course: Admit to hospitalist service. But the antibiotics for UTI. Obtain MRI and neurology consultation in case this is worsening of he
[2020-07-19 18:18] LABS: Add Urine Microscopic? YES; Amorphous Sediment Urine Few; Appearance Urine Cloudy (Clear); Bacteria Urine 1+ /hpf; Bilirubin Urine Negative (Negative); Blood Urine 1+ (Negative); Color Urine Amber (Yellow); Glucose Urine UA Negative (Negative); Ketones Urine Negative (Negative); Leukocyte Esterase Ur 3+ LEU/UL (Negative); Mucus Urine Rare /lpf; Nitrate Urine Positive (Negative); Protein Urine 3+ mg/dL (Negative); Specific Grav Ur 1.019 (1.001-1.035); Squamous Epithelial Cell Urine Many /hpf (Few); WBC Urine 51-75 /hpf
--- NOTE | 2020-07-19 19:44 | PC.NURSE ---
Report called to [facility] but states room isnt clean yet. The floor will call when room is ready.
--- NOTE | 2020-07-19 20:30 | ADMGEN ---
This patient, Ana Stewart, was admitted to Medical Room 348-. Patient/family oriented to hospital policies and general routines including ID bracelet, bed and alarms, visiting hours, pain management, procedures, bathroom and other care routines, personal items, smoking policy, room service/diet, and visiting hours. Information on how to activate the Rapid Response Team has been discussed. Patient/Family are encouraged to report perceived risks to care and to ask questions if they do not understand what they are told or what they should do.
[2020-07-19] MEDS: SODIUM CHLORIDE 0.9% IV 1,000 ML 100 ML IV CONT (20:32)
[2020-07-19] MEDS: HYDROcodone/acetaminophen (*CRX) 5-325 MG TABLET 1 TAB PO (21:15)
--- NOTE | 2020-07-19 22:34 | PM.IMHP ---
H&P: HPI History of Present Illness Date/Time: 07/19/20 22:34 Chief Complaint: lower extremity weaknes Narrative: Patient is a 74-year-old female who presents ER with progessively worsening weakness. 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 she also reports she has weakned handgrips since then. She has been having urinary tract infection just prior to that, which she gets chronically. she was placed on cipro by her PCP looks like, she is unsure what the antibiotic was. She dneies any feer, chills. She also reports she has not relieved her her urinary symtpoms even though she has been on the antibiotics. she denies any slurred speech or facial droop. She reports the weakness started after the diagnosis or uti and/or use of antibioics. she has a hx of COVID infecion back in 06/2019 and receoved from it. UA in the ED was dirty, culture fraga bee sent, given ceftriaxone in the ED. she has otherwise noted to have mild aris with Cr up to 1.6 from 1.2 baseline. she does report she has not been eating or drinkig as much as she supposed to. Review of Systems Review of Systems: Narrative: - CONSTITUTIONAL: Denies weight loss, fever and chills. - HEENT: Denies changes in vision and hearing - RESPIRATORY: Denies SOB and cough. - CV: Denies palpitations and CP. - GI: Denies abdominal pain, nausea, vomiting and diarrhea. - : reports dysuria and urinary frequency. - MSK: Denies myalgia and joint pain. - SKIN: Denies rash and pruritus. - NEUROLOGICAL: Denies headache and syncope. - PSYCHIATRIC: Denies recent changes in mood. Denies anxiety and depression. All systems reviewed & are unremarkable except as noted in HPI and below Constitutional: Constitutional: Reports fatigue and Reports weakness Neurologic: Reports weakness Endocrine: Endocrine: Reports fatigue PMFSH Past Medical History Medical History (Updated 07/19/20 @ 22:41 by Mac Kelly MD) Anemia Anxiety disorder Ataxia DVT (deep venous thrombosis) Gastro-esophageal reflux Hyperlipidemia Hypotension Seizure Tinea unguium Urinary tract infection Vitamin A deficiency Weakness Wheelchair dependence Family History Family History Sibling Patient's sister is in good health Patient's brother is in good health Mother Family history of malignant neoplasm of ovary, Onset Age: 32 Patient's mother is Father Patient's father is Acute myocardial infarction Social History Social History Smoking status: Never smoker Second hand tobacco smoke exposure: No Alcohol intake: never Substance use: never Gender identity (if verbalized by the patient): Female Spiritual care concerns: No Meds Home Medications and Allergies Home Medications Medication Instructions Recorded Confirmed Type clonazepam 1 mg tablet 1 mg PO DAILY PRN 02/16/19 07/19/20 History ergocalciferol (vitamin D2) 50,000 50,000 unit PO WEEKLY 02/16/19 07/19/20 History unit tablet fluticasone propionate 50 1 spray NASAL DAILY PRN 02/16/19 07/19/20 History mcg/actuation nasal spray,suspension midodrine 5 mg tablet 5 mg PO DAILY 02/16/19 07/19/20 History omeprazole 20 mg capsule,delayed 20 mg PO DAILY 02/16/19 07/19/20 History release pravastatin 20 mg tablet 20 mg PO DAILY 02/16/19 07/19/20 History trazodone 50 mg tablet 50 mg PO HS 05/25/19 07/19/20 History gabapentin 300 mg TID 02/15/20 07/19/20 History mirabegron [Myrbetriq] 25 mg PO DAILY 02/15/20 07/19/20 History tramadol 50 mg PO Q6-8H PRN 02/15/20 07/19/20 History Fiber-Tabs 625 mg PO DAILY 07/19/20 07/19/20 History Linzess 145 mcg PO DAILY 06
[2020-07-20] VITALS (10 sets, daily range): BP systolic 121–145; BP diastolic 49–64; PULSE 53–76; RESP 16; TEMP 36.1–36.7; O2SAT 96–99; BMI 33.8
[2020-07-20] MEDS: traZODone HCL 50 MG TABLET PO ×2 (00:21→22:02)
[2020-07-20] MEDS: SODIUM CHLORIDE 0.9% IV 1,000 ML 100 ML IV CONT (08:49)
[2020-07-20] MEDS: MIRABEGRON 25 MG ER TABLET PO (08:50)
[2020-07-20] MEDS: GABAPENTIN 300 MG CAPSULE BY MOUTH ×3 (08:50→17:24)
[2020-07-20] MEDS: MIDODRINE HCL 2.5 MG TABLET 5 MG PO (08:50)
[2020-07-20] MEDS: calcium polycarbophiL 625 MG TABLET PO (08:50)
[2020-07-20] MEDS: PANTOPRAZOLE 40 MG TABLET PO (08:50)
[2020-07-20] MEDS: PRAVASTATIN SODIUM 20 MG TABLET PO (08:50)
[2020-07-20] MEDS: NITROFURANTOIN MACROCRYSTALS 50 MG CAP PO (08:51)
[2020-07-20] MEDS: clonazePAM (*CRX) 0.5 MG TABLET 1 MG PO (08:53)
--- NOTE | 2020-07-20 15:23 | P.PNIM_ITS ---
Progress Note: A&P Assessment and Plan (1) Leg weakness, bilateral: Code(s): R29.898 - Other symptoms and signs involving the musculoskeletal system Status: Acute Assessment and Plan: * Patient is hypotensive at baseline * Head ct just showed some chronic findings * NS at 100ml/hr for dehydration * Strict I&Os * Ceftriaxone 1gm IV Daily for UTI treatment * UTI could be why patient is weak * Strength in arms is probably baseline * Feet still are a bit weak * Neuro consulted thank you for your recommendation * MRI: normal aging brain (2) Acute UTI: Code(s): N39.0 - Urinary tract infection, site not specified Status: Acute Assessment and Plan: * Urine culture pending * Urine WBC 51-75, 3+ Leukocyte Esterase, and Positive for nitrate * Ceftriaxone 1gm IV Daily * WBC is low at 4.4 * Trend labs * Labs in the am (3) 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 on wheelchair Status: Acute Assessment and Plan: * PT/OT * Multisystem atrophy disease * Try to get patient in chair (4) Weakness: Code(s): R53.1 - Weakness Status: Acute Assessment and Plan: * See above (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 Status: Acute Assessment and Plan: * See above (6) History of heparin-induced thrombocytopenia: Code(s): Z86.2 - Personal history of diseases of the blood and blood-forming organs and certain disorders involving the immune mechanism Status: Inactive Assessment and Plan: * Avoid heparin products * PLT 133 * Trend labs * Labs in the am (7) Hypotension: Code(s): I95.9 - Hypotension, unspecified Status: Acute Assessment and Plan: * Chronic problem * Continue home midodrine 5mg PO Daily * Blood pressure is 127/64 * Trend blood pressure * Adjust medications as needed (8) Hyperlipidemia: Code(s): E78.5 - Hyperlipidemia, unspecified Status: Acute Assessment and Plan: * Continue home pravastatin 20mg PO Daily Subjective Date/time seen: 07/20/20 15:23 Patient is a 74-year-old female with 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 Patient is able to move her legs and arms and stated that the weakness in her arms is getting better today however her legs are still weak she does have slight movement in both legs. Patient is also being treated for UTI however still waiting on the cultures come back. Patient did say that she has been having some constipation however she was able to have a bowel movement last night but did not feel like it was what she should have had. Patient also stated that she has been lightheaded and dizzy for the past 2 weeks especially was sitting up in sitting in a chair. Patient is afraid of falling due to her body shape in size, and stated that she is little top heavy to be stented chair dizzy. Did tell the patient that I would get her some PT and OT to evaluate her. Patient denies falls lately however said she has fall that is why she does not want a fall. Patient also stated that she has been having some syncope. She states this comes in spurts without warning and can last anywhere from 30-45 seconds. She stated that this has been happ
--- NOTE | 2020-07-20 15:23 | PM.IMPN ---
Progress Note: A&P Assessment and Plan (1) Leg weakness, bilateral: Code(s): R29.898 - Other symptoms and signs involving the musculoskeletal system Status: Acute Assessment and Plan: Patient is hypotensive at baseline Head ct just showed some chronic findings NS at 100ml/hr for dehydration Strict I&Os Ceftriaxone 1gm IV Daily for UTI treatment UTI could be why patient is weak Strength in arms is probably baseline Feet still are a bit weak Neuro consulted thank you for your recommendation MRI: normal aging brain (2) Acute UTI: Code(s): N39.0 - Urinary tract infection, site not specified Status: Acute Assessment and Plan: Urine culture pending Urine WBC 51-75, 3+ Leukocyte Esterase, and Positive for nitrate Ceftriaxone 1gm IV Daily WBC is low at 4.4 Trend labs Labs in the am (3) 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 on wheelchair Status: Acute Assessment and Plan: PT/OT Multisystem atrophy disease Try to get patient in chair (4) Weakness: Code(s): R53.1 - Weakness Status: Acute Assessment and Plan: See above (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 Status: Acute Assessment and Plan: See above (6) History of heparin-induced thrombocytopenia: Code(s): Z86.2 - Personal history of diseases of the blood and blood-forming organs and certain disorders involving the immune mechanism Status: Inactive Assessment and Plan: Avoid heparin products PLT 133 Trend labs Labs in the am (7) Hypotension: Code(s): I95.9 - Hypotension, unspecified Status: Acute Assessment and Plan: Chronic problem Continue home midodrine 5mg PO Daily Blood pressure is 127/64 Trend blood pressure Adjust medications as needed (8) Hyperlipidemia: Code(s): E78.5 - Hyperlipidemia, unspecified Status: Acute Assessment and Plan: Continue home pravastatin 20mg PO Daily Subjective Date/time seen: 07/20/20 15:23 Patient is a 74-year-old female with 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 Patient is able to move her legs and arms and stated that the weakness in her arms is getting better today however her legs are still weak she does have slight movement in both legs. Patient is also being treated for UTI however still waiting on the cultures come back. Patient did say that she has been having some constipation however she was able to have a bowel movement last night but did not feel like it was what she should have had. Patient also stated that she has been lightheaded and dizzy for the past 2 weeks especially was sitting up in sitting in a chair. Patient is afraid of falling due to her body shape in size, and stated that she is little top heavy to be stented chair dizzy. Did tell the patient that I would get her some PT and OT to evaluate her. Patient denies falls lately however said she has fall that is why she does not want a fall. Patient also stated that she has been having some syncope. She states this comes in spurts without warning and can last anywhere from 30-45 seconds. She stated that this has been happening for many years and she was not really concerned about it. Patient does denies shortness of breath, chest pain, nausea vomiting, diarrhea, abdominal pain, numbness tingling, headache, syncope, sweats, or chills, or falls. Review of Systems Review of Systems: All systems reviewed & are unremarkable except as noted in HPI and below Exam Const: General: cooperative, healthy appearing, comfortable, no acute distress, well developed, alert, awake and Physically active Nutritional Appearance: well nourished Orientation/con
--- NOTE | 2020-07-20 15:50 | PC.NURSE ---
On 07/20/20, the student, [ Florence Sánchez], provided care and completed [facility] documentation on this patient. I have reviewed the student's documentation and agree with the findings.
[2020-07-21] VITALS (9 sets, daily range): BP systolic 103–142; BP diastolic 60–80; PULSE 53–64; RESP 17–18; TEMP 36.6; O2SAT 97–100
[2020-07-21] MEDS: SODIUM CHLORIDE 0.9% IV 1,000 ML 100 ML IV CONT ×3 (01:15→22:38)
[2020-07-21] MEDS: traMADol HCL (*CRX) 50 MG TABLET PO ×2 (01:45→22:38)
[2020-07-21 06:03] LABS: Hematocrit 36.3 % (37.0-47.0); Hemoglobin 11.7 g/dL (12.0-15.0); Mean Corpuscular HGB Conc 32.2 g/dl (32-36); Mean Corpuscular Volume 89.9 fl (80-100); Platelet Count Result 112 k/mm3 (150-375); Red Blood Count 4.04 M/mm3 (4.2-5.4); Red Cell Distribution Width 14.5 % (11.5-14.5); White Blood Count 2.8 K/mm3 (4.5-10.0)
[2020-07-21 06:19] LABS: Alanine Aminotransferase 15 U/L (4-35); Albumin Level 2.9 g/dL (3.5-5.1); Alkaline Phosphatase 78 U/L (38-126); Anion Gap 7 mmol/L (8-16); Aspartate Amino Transferase 24 U/L (14-36); Bilirubin,Total 0.5 mg/dL (0.2-1.3); Blood Urea Nitrogen 17 mg/dL (7-17); Calcium 8.4 mg/dL (8.4-10.2); Carbon Dioxide 23 mmol/L (22-30); Chloride 114 mmol/L (98-107); Estimated CRCL calculation 38 ml/min; Estimated Glomerular Filt Rate 49; Glucose 112 mg/dL (65-105); Magnesium 1.6 mg/dL (1.6-2.3); Potassium 4.2 mmol/L (3.4-5.0); Sodium 144 mmol/L (137-145)
[2020-07-21] MEDS: MAGNESIUM SULF 2 GM/WATER 50ML 2 GM/50 ML BAG IVPB (08:15)
[2020-07-21] MEDS: FLUDROCORTISONE ACETATE 0.1 MG TABLET PO (08:19)
[2020-07-21] MEDS: MIRABEGRON 25 MG ER TABLET PO (08:19)
[2020-07-21] MEDS: NITROFURANTOIN MACROCRYSTALS 50 MG CAP PO (08:19)
[2020-07-21] MEDS: calcium polycarbophiL 625 MG TABLET PO (08:19)
[2020-07-21] MEDS: PANTOPRAZOLE 40 MG TABLET PO (08:20)
[2020-07-21] MEDS: GABAPENTIN 300 MG CAPSULE BY MOUTH ×3 (08:20→16:30)
[2020-07-21] MEDS: PRAVASTATIN SODIUM 20 MG TABLET PO (08:20)
[2020-07-21] MEDS: MIDODRINE HCL 2.5 MG TABLET 5 MG PO ×3 (08:21→16:30)
--- NOTE | 2020-07-21 10:44 | P.PNIM_ITS ---
Progress Note: A&P Assessment and Plan (1) Leg weakness, bilateral: Code(s): R29.898 - Other symptoms and signs involving the musculoskeletal system Status: Acute Assessment and Plan: * Patient is hypotensive at baseline * Head ct just showed some chronic findings * NS at 100ml/hr for dehydration * Strict I&Os * Ceftriaxone 1gm IV Daily for UTI treatment * UTI could be why patient is weak * Strength in arms is probably baseline * Feet still are a bit weak * Neuro consulted thank you for your recommendation * MRI: normal aging brain * Consider Levadopa * PT/OT (2) Acute UTI: Code(s): N39.0 - Urinary tract infection, site not specified Status: Acute Assessment and Plan: * Urine culture E. 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 Status: Acute Assessment and Plan: * See above (6) History of heparin-induced thrombocytopenia: Code(s): Z86.2 - Personal history of diseases of the blood and blood-forming organs and certain disorders involving the immune mechanism Status: Inactive Assessment and Plan: * Avoid heparin products * PLT 133 * Trend labs * Labs in the am (7) Hypotension: Qualifiers: Hypotension type: neurogenic orthostatic hypotension Qualified Code(s): G90.3 - Multi-system degeneration of the autonomic nervous system Code(s): I95.9 - Hypotension, unspecified Status: Acute Assessment and Plan: * Chronic problem * Change midodrine 5mg PO TID before meals * Blood pressure is 103/80 * Trend blood pressure * Adjust medications as needed (8) Hyperlipidemia: Qualifiers: Hyperlipidemia type: unspecified Qualified Code(s): E78.5 - Hyperlipidemia, unspecified Code(s): E78.5 - Hyperlipidemia, unspecified Status: Acute Assessment and Plan: * Continue home pravastatin 20mg PO Daily Time Spent With Patient Time with patient: Greater than 35 minutes Subjective Date/time seen: 07/21/20 10:44 Patient is a 74-year-old female with 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 Patient is able to move her legs and arms and stated that the weakness in her arms is better and her legs are better as well, however the right leg is still a bit weak. Patient stated that the right leg feels like there is a bunch of sandbags on it, and she is unable to lift it off the bed. Upon examining the patient the patient did look dizzy and confirmed that she was dizzy which she said is pretty normal for her, she also said that she was lightheaded. Patient also stated that she has not had a bowel movement in a few days and feels like she could have a bowel movement however in nothing comes out. I asked the patient if she would li
--- NOTE | 2020-07-21 10:44 | PM.IMPN ---
Progress Note: A&P Assessment and Plan (1) Leg weakness, bilateral: Code(s): R29.898 - Other symptoms and signs involving the musculoskeletal system Status: Acute Assessment and Plan: Patient is hypotensive at baseline Head ct just showed some chronic findings NS at 100ml/hr for dehydration Strict I&Os Ceftriaxone 1gm IV Daily for UTI treatment UTI could be why patient is weak Strength in arms is probably baseline Feet still are a bit weak Neuro consulted thank you for your recommendation MRI: normal aging brain Consider Levadopa PT/OT (2) Acute UTI: Code(s): N39.0 - Urinary tract infection, site not specified Status: Acute Assessment and Plan: Urine culture E. 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 Status: Acute Assessment and Plan: See above (6) History of heparin-induced thrombocytopenia: Code(s): Z86.2 - Personal history of diseases of the blood and blood-forming organs and certain disorders involving the immune mechanism Status: Inactive Assessment and Plan: Avoid heparin products PLT 133 Trend labs Labs in the am (7) Hypotension: Qualifiers: Hypotension type: neurogenic orthostatic hypotension Qualified Code(s): G90.3 - Multi-system degeneration of the autonomic nervous system Code(s): I95.9 - Hypotension, unspecified Status: Acute Assessment and Plan: Chronic problem Change midodrine 5mg PO TID before meals Blood pressure is 103/80 Trend blood pressure Adjust medications as needed (8) Hyperlipidemia: Qualifiers: Hyperlipidemia type: unspecified Qualified Code(s): E78.5 - Hyperlipidemia, unspecified Code(s): E78.5 - Hyperlipidemia, unspecified Status: Acute Assessment and Plan: Continue home pravastatin 20mg PO Daily Time Spent With Patient Time with patient: Greater than 35 minutes Subjective Date/time seen: 07/21/20 10:44 Patient is a 74-year-old female with 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 Patient is able to move her legs and arms and stated that the weakness in her arms is better and her legs are better as well, however the right leg is still a bit weak. Patient stated that the right leg feels like there is a bunch of sandbags on it, and she is unable to lift it off the bed. Upon examining the patient the patient did look dizzy and confirmed that she was dizzy which she said is pretty normal for her, she also said that she was lightheaded. Patient also stated that she has not had a bowel movement in a few days and feels like she could have a bowel movement however in nothing comes out. I asked the patient if she would like something to help it she said that she would be interested in MiraLax. Patient also said she has some epigastric pain which she contributed to the lack of a bowel movement.Patient does denies shortness of breath, chest pain, nausea vomiting, diarrhea, abdominal pain, numbness tingling, headache, syncope, sweats, or chills, or falls. Did have a discussion with patient about her future. Patient stated that she comes from [facility] and that she would not be interested in a rehab, because she is worried that she might lose her handicap apartment that she
[2020-07-21] MEDS: clonazePAM (*CRX) 0.5 MG TABLET 1 MG PO (12:43)
--- NOTE | 2020-07-21 13:38 | WPDNEURCNPN ---
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 wheelchair Status: Acute Additional Plan documented case of multiple system atrophy with orthostatic hypotension which is the most significant problem for her on day-to-day life she has been started on Florinef in addition my to drain 3 times a day all the pros and cons of the symptomatology I have discussed with her I will follow while she is in the hospital Consult date: 07/21/20 Time Seen: 12:30 HPI: Ana Stewart is a 74 year old female admitted to the hospital for the complaints of increasing weakness in addition to the ongoing documented diagnosis of multiple system atrophy with wheelchair-bound status and orthostatic symptomatology and also recurrent urinary tract infection. Patient has been thoroughly evaluated at the Center at [facility] . Additionally she has underlying diagnosis of anxiety disorder with seizure disorder and GERD, hyperlipidemia, recurrent UTI, in addition to recurrent hypotension which is being handled by multiple medication most recently Floranex and midodrine Review of Systems Review of Systems: All systems reviewed & are unremarkable except as noted in HPI and below PMFSH Past Medical History Medical History Anemia Anxiety disorder Ataxia DVT (deep venous thrombosis) Gastro-esophageal reflux History of heparin-induced thrombocytopenia Hyperlipidemia Hypotension Seizure Tinea unguium Urinary tract infection Vitamin A deficiency Weakness Wheelchair dependence Family History Family History Sibling Patient's sister is in good health Patient's brother is in good health Mother Family history of malignant neoplasm of ovary, Onset Age: 32 Patient's mother is Father Patient's father is Acute myocardial infarction Social History Social History Smoking status: Never smoker Second hand tobacco smoke exposure: No Alcohol intake: never Substance use: never Gender identity (if verbalized by the patient): Female Spiritual care concerns: No Meds Home Medications and Allergies Home Medications Medication Instructions Recorded Confirmed Type clonazepam 1 mg tablet 1 mg PO DAILY PRN 02/16/19 07/19/20 History ergocalciferol (vitamin D2) 50,000 50,000 unit PO WEEKLY 02/16/19 07/19/20 History unit tablet fluticasone propionate 50 1 spray NASAL DAILY PRN 02/16/19 07/19/20 History mcg/actuation nasal spray,suspension midodrine 5 mg tablet 5 mg PO DAILY 02/16/19 07/19/20 History omeprazole 20 mg capsule,delayed 20 mg PO DAILY 02/16/19 07/19/20 History release pravastatin 20 mg tablet 20 mg PO DAILY 02/16/19 07/19/20 History trazodone 50 mg tablet 50 mg PO HS 05/25/19 07/19/20 History gabapentin 300 mg TID 02/15/20 07/19/20 History mirabegron [Myrbetriq] 25 mg PO DAILY 02/15/20 07/19/20 History tramadol 50 mg PO Q6-8H PRN 02/15/20 07/19/20 History Fiber-Tabs 625 mg PO DAILY 07/19/20 07/19/20 History Linzess 145 mcg PO DAILY 07/19/20 07/19/20 History nitrofurantoin macrocrystal 50 mg PO DAILY 07/19/20 07/19/20 History Allergies Allergy/AdvReac Type Severity Reaction Status Date / Time adhesive Allergy Unknown BLISTERS Verified 07/19/20 20:39 Iodinated Contrast Media Allergy Unknown Swelling Verified 07/21/20 07:02 Vital Signs Vital Signs - 24 hr 07/20/20 14:06 07/20/20 1
--- NOTE | 2020-07-21 14:49 | PC.NURSE ---
On 07/21/20, the student, [ Florence Sánchez], provided care and completed [facility] documentation on this patient. I have reviewed the student's documentation and agree with the findings.
[2020-07-21] MEDS: traZODone HCL 50 MG TABLET PO (20:29)
[2020-07-22 04:19] VITALS: BP 136/58; PULSE 68; RESP 18; TEMP 36.4; O2SAT 97
[2020-07-22] MEDS: MIDODRINE HCL 2.5 MG TABLET 5 MG PO ×2 (05:55→12:13)
[2020-07-22 06:16] LABS: Basophils Percent Auto 0.7 % (0.2-1.2); Eosinophils Absolute Auto 0.1 K/mm3 (0-0.3); Hematocrit 34.2 % (37.0-47.0); Hemoglobin 11.2 g/dL (12.0-15.0); Immature Granulocyte Absolute 0.01 K/mm3 (0.00-0.031); Immature Granulocyte Percent A 0.3 % (0-0.5); Lymphocytes Absolute Auto 0.89 K/mm3 (0.9-3.2); Mean Corpuscular HGB Conc 32.7 g/dl (32-36); Mean Corpuscular Hemoglobin 28.7 pg (26-34); Mean Corpuscular Volume 87.7 fl (80-100); Mean Platelet Volume 8.6 fl (7.4-10.4); Monocytes Absolute Auto 0.3 K/mm3 (0.1-0.6); Monocytes Percent Auto 11.1 % (2.6-8.5); Neutrophils Absolute Auto 1.6 K/mm3 (1.3-6.7); Neutrophils Percent Auto 54.9 % (45.5-73.1); Platelet Count Result 108 k/mm3 (150-375); Red Cell Distribution Width 14.5 % (11.5-14.5)
[2020-07-22 06:27] LABS: Alanine Aminotransferase 14 U/L (4-35); Albumin Level 2.8 g/dL (3.5-5.1); Alkaline Phosphatase 74 U/L (38-126); Anion Gap 7 mmol/L (8-16); Aspartate Amino Transferase 21 U/L (14-36); Bilirubin,Total 0.5 mg/dL (0.2-1.3); Blood Urea Nitrogen 13 mg/dL (7-17); Calcium 8.2 mg/dL (8.4-10.2); Carbon Dioxide 21 mmol/L (22-30); Chloride 115 mmol/L (98-107); Estimated CRCL calculation 45 ml/min; Estimated Glomerular Filt Rate > 60; Glucose 117 mg/dL (65-105); Magnesium 1.8 mg/dL (1.6-2.3); Potassium 3.9 mmol/L (3.4-5.0); Sodium 143 mmol/L (137-145)
[2020-07-22 06:35] LABS: NT Pro B Type Natriuretic Pept 893 pg/mL (5-100)
[2020-07-22] MEDS: GABAPENTIN 300 MG CAPSULE BY MOUTH ×2 (08:31→12:13)
[2020-07-22] MEDS: NITROFURANTOIN MACROCRYSTALS 50 MG CAP PO (08:31)
[2020-07-22] MEDS: FLUDROCORTISONE ACETATE 0.1 MG TABLET PO (08:31)
[2020-07-22] MEDS: PRAVASTATIN SODIUM 20 MG TABLET PO (08:31)
[2020-07-22] MEDS: PANTOPRAZOLE 40 MG TABLET PO (08:31)
[2020-07-22] MEDS: MIRABEGRON 25 MG ER TABLET PO (08:31)
[2020-07-22] MEDS: calcium polycarbophiL 625 MG TABLET PO (08:32)
--- NOTE | 2020-07-22 10:29 | P.DS_ITS ---
DS: Admitting Diagnosis Admitting Diagnosis Admitting Diagnosis: increased weakness DS: Discharge Diagnosis Discharge Diagnosis (1) Leg weakness, bilateral: Code(s): R29.898 - Other symptoms and signs involving the musculoskeletal system Status: Acute Assessment and Plan: * Patient is hypotensive at baseline * Head ct just showed some chronic findings * NS at 100ml/hr for dehydration * Strict I&Os * Ceftriaxone 1gm IV Daily for UTI treatment * UTI could be why patient is weak * Strength in arms is probably baseline * Feet still are a bit weak, but are close to baseline * Neuro consulted thank you for your recommendation * MRI: normal aging brain * Consider Levadopa * PT/OT (2) Acute UTI: Code(s): N39.0 - Urinary tract infection, site not specified Status: Acute Assessment and Plan: * Urine culture E. 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 Status: Acute Assessment and Plan: * See above (6) History of heparin-induced thrombocytopenia: Code(s): Z86.2 - Personal history of diseases of the blood and blood-forming organs and certain disorders involving the immune mechanism Status: Inactive Assessment and Plan: * Avoid heparin products * PLT 133 * Trend labs * Labs in the am (7) Hypotension: Qualifiers: Hypotension type: neurogenic orthostatic hypotension Qualified Code(s): G90.3 - Multi-system degeneration of the autonomic nervous system Code(s): I95.9 - Hypotension, unspecified Status: Acute Assessment and Plan: * Chronic problem * Change midodrine 5mg PO TID before meals * Add florinef 0.1mg PO Daily * Blood pressure is 103/80 * Trend blood pressure * Adjust medications as needed (8) Hyperlipidemia: Qualifiers: Hyperlipidemia type: unspecified Qualified Code(s): E78.5 - Hyperlipidemia, unspecified Code(s): E78.5 - Hyperlipidemia, unspecified Status: Acute Assessment and Plan: * Continue home pravastatin 20mg PO Daily DS: Summary Hospital Course Hospital Course: Patient is a 74-year-old female with 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 Upon arrival to the ED patient was unable to perform her daily activities of living. At baseline she is able to stand up and put her pants on, and stand for 30-50 seconds. Patient was treated for UTI and also orthostatic hypotension. Urine cultures show that the patient was growing E coli. Medications were adjusted to maintain a blood pressure which have been significantly increased to the 130-140s over 50-60s. Patient was seen by Neurology while she
--- NOTE | 2020-07-22 10:29 | PM.DS ---
DS: Admitting Diagnosis Admitting Diagnosis Admitting Diagnosis: increased weakness DS: Discharge Diagnosis Discharge Diagnosis (1) Leg weakness, bilateral: Code(s): R29.898 - Other symptoms and signs involving the musculoskeletal system Status: Acute Assessment and Plan: Patient is hypotensive at baseline Head ct just showed some chronic findings NS at 100ml/hr for dehydration Strict I&Os Ceftriaxone 1gm IV Daily for UTI treatment UTI could be why patient is weak Strength in arms is probably baseline Feet still are a bit weak, but are close to baseline Neuro consulted thank you for your recommendation MRI: normal aging brain Consider Levadopa PT/OT (2) Acute UTI: Code(s): N39.0 - Urinary tract infection, site not specified Status: Acute Assessment and Plan: Urine culture E. 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 Status: Acute Assessment and Plan: See above (6) History of heparin-induced thrombocytopenia: Code(s): Z86.2 - Personal history of diseases of the blood and blood-forming organs and certain disorders involving the immune mechanism Status: Inactive Assessment and Plan: Avoid heparin products PLT 133 Trend labs Labs in the am (7) Hypotension: Qualifiers: Hypotension type: neurogenic orthostatic hypotension Qualified Code(s): G90.3 - Multi-system degeneration of the autonomic nervous system Code(s): I95.9 - Hypotension, unspecified Status: Acute Assessment and Plan: Chronic problem Change midodrine 5mg PO TID before meals Add florinef 0.1mg PO Daily Blood pressure is 103/80 Trend blood pressure Adjust medications as needed (8) Hyperlipidemia: Qualifiers: Hyperlipidemia type: unspecified Qualified Code(s): E78.5 - Hyperlipidemia, unspecified Code(s): E78.5 - Hyperlipidemia, unspecified Status: Acute Assessment and Plan: Continue home pravastatin 20mg PO Daily DS: Summary Hospital Course Hospital Course: Patient is a 74-year-old female with 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 Upon arrival to the ED patient was unable to perform her daily activities of living. At baseline she is able to stand up and put her pants on, and stand for 30-50 seconds. Patient was treated for UTI and also orthostatic hypotension. Urine cultures show that the patient was growing E coli. Medications were adjusted to maintain a blood pressure which have been significantly increased to the 130-140s over 50-60s. Patient was seen by Neurology while she was here who adjusted her medications as well. Neurology recommends following up with them in 8 weeks. A great deal of discussion went into furthering PT OT, ability to get a wheelchair comfortable enough to where the patient is comfortable enough that she does not feel like she is going to fall out. The patient is a resident of [facility] and will be returning there. Patient throughout the admission had expressed that she would just like to set and be able to stand to pivot to get on the bathroom. Labs are back to normal patient also had no BM while she was here ho
== END 2020-07-22 14:45 | DRG 690 ==
LOC: ANHED 18:17 → ANH3MED 19:00
PROVIDERS: Nurse Practitioner; Admitting Provider Hospitalist; Emergency Provider Emergency Medicine; PCP Family Medicine; Visit Provider Internal Medicine
DX: N39.0 Urinary tract infection, site not specified (principal); G90.3 Multi-system degeneration of the autonomic nervous system; R29.898 Other symptoms and signs involving the musculoskeletal system; B96.20 Unspecified Escherichia coli [E. coli] as the cause of diseases classified elsewhere; R53.1 Weakness; G40.909 Epilepsy, unspecified, not intractable, without status epilepticus; K21.9 Gastro-esophageal reflux disease without esophagitis; E78.5 Hyperlipidemia, unspecified; Z66 Do not resuscitate; Z86.2 Personal history of diseases of the blood and blood-forming organs and certain disorders involving the immune mechanism; Z86.718 Personal history of other venous thrombosis and embolism; Z99.3 Dependence on wheelchair
CPT/HCPCS: 36415; 70450; 70551; 71045; 71250; 80048; 80053; 81001; 82948; 83735; 83880; 84484; 85025; 85027; 85610; 85730; 87077; 87086; 87088; 87186; 93005; 96361; 96365; 96375; 97110; 97161; 97165; 97530; 99285; A9270; G0378; J0696; J3475; J7030

== ENCOUNTER 2020-09-12 14:53 | Emergency (ER) | payer MEDICARE, MEDICAID, SELFPAY ==
--- NOTE | ~2020-09-12 | XR_ITS ---
EXAMINATION: XR chest 2V DATE: 09/12/2020 15:41 INDICATION: Shortness of breath and cough TECHNIQUE: AP and lateral views of the chest are obtained. COMPARISON: 07/19/2020 FINDINGS: There are airspace opacities in the mid and lower lung zones, left greater than right. Ther e is no pleural effusion or pneumothorax. The cardiomediastinal silhouette is normal. There is mild t horacic spondylosis. IMPRESSION: 1. Airspace opacities of the mid and lower lung zones, left greater than right, consistent with atele ctasis versus pneumonia. Reviewed, dictated and finalized at location [facility]. IMPRESSION: 1. Airspace opacities of the mid and lower lung zones, left greater than right, consistent with atelectasis versus pneumonia.
[2020-09-12 14:57] VITALS: BP 92/56; PULSE 59; RESP 20; TEMP 36.8; O2SAT 97
[2020-09-12 15:01] VITALS: PULSE 59
--- NOTE | 2020-09-12 15:12 | ECG_ITS ---
Measurements Intervals [place] Rate: 58 P: 15 AR: 168 QRS: 40 QRSD: 79 T: 44 QT: 422 QTc: 415 Interpretive Statements SINUS BRADYCARDIA NONSPECIFIC T-WAVE ABNORMALITY- ANTEROLAT/INF LEADS BORDERLINE ECG Electronically Signed On 09-12-2020 16:05:49 CDT by Nnamdi Liu D.O.
[2020-09-12 15:33] LABS: Basophils Percent Auto 0.4 % (0.2-1.2); Eosinophils Absolute Auto 0.1 K/mm3 (0-0.3); Eosinophils Percent Auto 2.9 % (0-4.4); Hematocrit 37.8 % (37.0-47.0); Hemoglobin 12.6 g/dL (12.0-15.0); Immature Granulocyte Absolute 0.01 K/mm3 (0.00-0.031); Immature Granulocyte Percent A 0.2 % (0-0.5); Lymphocytes Absolute Auto 0.87 K/mm3 (0.9-3.2); Lymphocytes Percent Auto 19.2 % (18.3-44.2); Mean Corpuscular HGB Conc 33.3 g/dl (32-36); Mean Corpuscular Hemoglobin 29.4 pg (26-34); Mean Corpuscular Volume 88.1 fl (80-100); Mean Platelet Volume 8.5 fl (7.4-10.4); Monocytes Absolute Auto 0.5 K/mm3 (0.1-0.6); Monocytes Percent Auto 11.9 % (2.6-8.5); Neutrophils Percent Auto 65.4 % (45.5-73.1); Platelet Count Result 142 k/mm3 (150-375); Red Blood Count 4.29 M/mm3 (4.2-5.4); Red Cell Distribution Width 14.1 % (11.5-14.5); White Blood Count 4.5 K/mm3 (4.5-10.0)
[2020-09-12 15:56] LABS: Alanine Aminotransferase 15 U/L (4-35); Albumin Level 3.7 g/dL (3.5-5.1); Alkaline Phosphatase 90 U/L (38-126); Anion Gap 9 mmol/L (8-16); Aspartate Amino Transferase 25 U/L (14-36); Blood Urea Nitrogen 22 mg/dL (7-17); Calcium 9.3 mg/dL (8.4-10.2); Carbon Dioxide 24 mmol/L (22-30); Chloride 106 mmol/L (98-107); Estimated CRCL calculation 34 ml/min; Estimated Glomerular Filt Rate 40; Glucose 108 mg/dL (65-110); Potassium 3.6 mmol/L (3.4-5.0); Sodium 139 mmol/L (137-145)
[2020-09-12 16:17] VITALS: BP 136/59; PULSE 61; RESP 15; O2SAT 98
[2020-09-12] MEDS: SODIUM CHLORIDE 0.9% IV 1,000 ML 999 ML IV CONT (16:17)
[2020-09-12 16:20] LABS: Add Urine Microscopic? YES; Appearance Urine Cloudy (Clear); Bacteria Urine Trace /hpf; Bilirubin Urine Negative (Negative); Blood Urine 1+ (Negative); Budding Yeast Urine Present /hpf; Color Urine Yellow (Yellow); Glucose Urine UA Negative (Negative); Ketones Urine Negative (Negative); Leukocyte Esterase Ur 3+ LEU/UL (Negative); Mucus Urine Rare /lpf; Nitrate Urine Negative (Negative); Protein Urine 2+ mg/dL (Negative); Specific Grav Ur 1.009 (1.001-1.035); Squamous Epithelial Cell Urine Many /hpf (Few); WBC Urine >75 /hpf
[2020-09-12 18:32] VITALS: BP 166/69; PULSE 62; RESP 17; O2SAT 96
--- NOTE | 2020-09-12 18:44 | ED.NAVMDI ---
HPI - Nausea/Vomiting/Diarrhea General Chief complaint: Weakness Stated complaint: DIARRHEA, ABD PAIN Time Seen by Provider: 09/12/20 14:56 History of Present Illness HPI Narrative: Patient is a 74-year-old female with history of degenerative brainstem that has caused her to be bedbound who presents with low blood pressure. [facility] she was found to have a blood pressure in the 70s systolic so she was sent to the emergency room. Patient reports she had 2-3 loose stools yesterday, none today, and had a couple loose stools the day before. No blood in the stool. She denies nausea or vomiting. She has had no fevers chills or sweats. She reports some I told her that her lips were blue when they took her blood pressure. She feels fine at this time. No additional complaints. Related Data Home Medications Medication Instructions Recorded Confirmed clonazepam 1 mg tablet 1 mg PO DAILY PRN 02/16/19 07/19/20 ergocalciferol (vitamin D2) 50,000 50,000 unit PO WEEKLY 02/16/19 07/19/20 unit tablet fluticasone propionate 50 1 spray NASAL DAILY PRN 02/16/19 07/19/20 mcg/actuation nasal spray,suspension omeprazole 20 mg capsule,delayed 20 mg PO DAILY 02/16/19 07/19/20 release pravastatin 20 mg tablet 20 mg PO DAILY 02/16/19 07/19/20 trazodone 50 mg tablet 50 mg PO HS 05/25/19 07/19/20 Myrbetriq 25 mg PO DAILY 02/15/20 07/19/20 gabapentin 300 mg TID 02/15/20 07/19/20 tramadol 50 mg PO Q6-8H PRN 02/15/20 07/19/20 Fiber-Tabs 625 mg PO DAILY 07/19/20 07/19/20 Linzess 145 mcg PO DAILY 07/19/20 07/19/20 nitrofurantoin macrocrystal 50 mg PO DAILY 07/19/20 07/19/20 Allergies Allergy/AdvReac Type Severity Reaction Status Date / Time adhesive Allergy Unknown BLISTERS Verified 09/12/20 15:10 Iodinated Contrast Media Allergy Unknown Swelling Verified 09/12/20 15:10 Review of Systems Review of Systems: All systems reviewed & are unremarkable except as noted in HPI and below Constitutional: Constitutional: Denies chills, Denies fever(s) and Reports weakness Cardiovascular: Cardiovascular: Denies chest pain and Denies radiating jaw, neck or arm pain Respiratory: Respiratory: Denies cough and Denies dyspnea Gastrointestinal: Gastrointestinal: Denies abdominal pain, Reports diarrhea, Denies nausea and Denies vomiting Neurologic: Denies dizziness, Denies focal weakness and Denies numbness PMFSH Past Medical History Medical History Anemia Anxiety disorder Ataxia DVT (deep venous thrombosis) Gastro-esophageal reflux History of heparin-induced thrombocytopenia Hyperlipidemia Hypotension Seizure Tinea unguium Urinary tract infection Vitamin A deficiency Weakness Wheelchair dependence Family History Family History Sibling Patient's sister is in good health Patient's brother is in good health Mother Family history of malignant neoplasm of ovary, Onset Age: 32 Patient's mother is Father Patient's father is Acute myocardial infarction Social History Social History Smoking status: Never smoker Second hand tobacco smoke exposure: No Alcohol intake: never Substance use: never Gender identity (if verbalized by the patient): Female Spiritual care concerns: No Exam Narrative: Exam Narrative: GENERAL: Well-appearing, well-nourished, and in no acute distress. HEAD: Normocephalic, atraumatic. EYES: PERRL and EOMI. ENT: Mucous membranes moist. CHEST: Clear to auscultation. No respiratory distress. HEART: Regular rate and rhythm. Normal peripheral pulses. ABDOMEN: Soft, nontender, nondistended. SKIN: Warm, dry, no rash. NEURO: Alert and oriented x3. PSYCH: Normal mood and affect. Course Course Emergency Course: Unremarkable exam. Patient normotensive. Given additional fluids. Found to have UTI.
[2020-09-12 19:08] VITALS: BP 155/74; PULSE 65; RESP 21; O2SAT 96
--- NOTE | 2020-09-12 20:56 | PC.NURSE ---
alexandr called and pushed pt eta until [id number]
--- NOTE | 2020-09-12 21:16 | PC.NURSE ---
[facility] contact [facility] and [employer] [facility] to transfer pt back. all companies declined.
--- NOTE | 2020-09-12 22:34 | PC.NURSE ---
made contact with [facility] for a new eta.new eta [id number]
--- NOTE | 2020-09-13 00:42 | PC.NURSE ---
alexandr has arrived and is aware that pt is going darrin martinez in [facility]
== END 2020-09-13 03:47 | disposition home or self-care (01) ==
PROVIDERS: Emergency Provider Emergency Medicine; PCP Family Medicine
DX: N39.0 Urinary tract infection, site not specified (principal); E78.5 Hyperlipidemia, unspecified; K21.9 Gastro-esophageal reflux disease without esophagitis; E50.9 Vitamin A deficiency, unspecified; Z86.718 Personal history of other venous thrombosis and embolism; R91.8 Other nonspecific abnormal finding of lung field; Z86.2 Personal history of diseases of the blood and blood-forming organs and certain disorders involving the immune mechanism; R00.1 Bradycardia, unspecified; R94.31 Abnormal electrocardiogram [ECG] [EKG]
CPT/HCPCS: 36415; 51701; 71046; 80053; 81001; 85025; 87077; 87086; 87088; 87186; 93005; 96361; 96365; 99284; J0696; J7030

== ENCOUNTER 2021-01-24 01:32 | Day surgery (SDC) | payer OTHER, SELFPAY ==
[2021-01-09 12:52] VITALS: BMI 28.3
--- NOTE | 2021-01-23 15:25 | PM.HPGS ---
History of Present Illness History of Present Illness Consent: Risks, benefits, and alternatives have been discussed and questions answered. Patient agrees to proceed with procedure. Chief complaint: dysphagia Narrative: Ana Stewart is a 75 year old female with hx of multisystem atrophy, HLD, GERD, wheelchair dependant is referred to office for evaluation of dysphagia. States she had symptoms for quit some time now. Reports dysphagia in neck and upper chest area. Dysphagia is worse with chicken and breads. She denies any dysphagia to liquids or pills. She denies any previous food bolus or Er visits. She reports waking in the middle of the night with with sudden SOB that improves when she sits up and a hoarse voice. She has mild SOB with exertions since being dx with Covid about a year ago. She denies any chest pain, left arm pain, jaw pain, heart palpitations. She reports distant history of esophageal dilations many many years ago. She takes omeprazole 20 mg daily for quite sometime now. Review of Systems Review of Systems: All systems reviewed & are unremarkable except as noted in HPI and below PMFSH Past Medical History Medical History Anemia Anxiety disorder Ataxia DVT (deep venous thrombosis) Gastro-esophageal reflux History of heparin-induced thrombocytopenia Hyperlipidemia Hypotension Seizure Tinea unguium Urinary tract infection Vitamin A deficiency Weakness Wheelchair dependence Family History Family History Sibling Patient's sister is in good health Patient's brother is in good health Mother Family history of malignant neoplasm of ovary, Onset Age: 32 Patient's mother is Father Patient's father is Acute myocardial infarction Social History Social History Smoking status: Never smoker Second hand tobacco smoke exposure: No Alcohol intake: never Substance use: never Substance use type: does not use Living arrangements: with family Gender identity (if verbalized by the patient): Female Spiritual care concerns: No Meds Home Medications and Allergies Home Medications Medication Instructions Recorded Confirmed Type clonazepam 1 mg tablet 1 mg PO DAILY PRN 02/16/19 01/24/21 History ergocalciferol (vitamin D2) 50,000 50,000 unit PO WEEKLY 02/16/19 01/24/21 History unit tablet fluticasone propionate 50 1 spray NASAL DAILY PRN 02/16/19 01/24/21 History mcg/actuation nasal spray,suspension omeprazole 20 mg capsule,delayed 20 mg PO DAILY 02/16/19 01/24/21 History release pravastatin 20 mg tablet 20 mg PO DAILY 02/16/19 01/24/21 History trazodone 50 mg tablet 50 mg PO HS 05/25/19 01/24/21 History Myrbetriq 25 mg PO DAILY 02/15/20 01/24/21 History gabapentin 300 mg TID 02/15/20 01/24/21 History tramadol 50 mg PO Q6-8H PRN 02/15/20 01/24/21 History Fiber-Tabs 625 mg PO DAILY 07/19/20 01/24/21 History Linzess 145 mcg PO DAILY 07/19/20 01/24/21 History nitrofurantoin macrocrystal 50 mg PO DAILY 07/19/20 01/24/21 History cefdinir 300 mg PO Q12H #20 cap 07/22/20 01/24/21 Rx fludrocortisone 0.1 mg PO DAILY #30 tablet 07/22/20 01/24/21 Rx midodrine 5 mg PO AC #90 tablet 07/22/20 01/24/21 Rx cephalexin 500 mg PO Q12H #14 cap 09/12/20 01/24/21 Rx Allergies Allergy/AdvReac Type Severity Reaction Status Date / Time adhesive Allergy Unknown BLISTERS Verified 01/24/21 12:27 Iodinated Contrast Media Allergy Unknown Swelling Verified 01/24/21 12:27 Exam Const: General: no acute distress Nutritional Appearance: average body habitus Limitations: physical limitations ( Wheelchair-bound) Resp: Auscultation: clear to auscultation bilaterally Cardio: Rhythm: regular rhythm GI: GI Palp: No abdominal tenderness Percussion: Yes normal to percussion Assessment and Plan Assessme
[2021-01-24 12:10] VITALS: BP 109/69; PULSE 69; RESP 18; TEMP 35.6; O2SAT 96
--- NOTE | 2021-01-24 12:43 | WPDANESEPPF ---
Anes - Initial Pre Proc Eval Procedure: Operation Date: 01/24/21 14:00 Proposed Procedures p Esophagogastroduodenoscopy - Sean Mcmullen MD Date/Time: 01/24/21 12:43 Surgeon: Sean Mcmullen MD Pre Op Diagnosis: dysphagia Patient Data Age: 75 Gender: F Height: 1.65 m Weight: 77.2 kg Last Vital Signs Temp 35.6 C L 01/24/21 12:10 Pulse 69 01/24/21 12:10 Resp 18 01/24/21 12:10 BP 109/69 01/24/21 12:10 Pulse Ox 96 01/24/21 12:10 Allergies Allergy/AdvReac Type Severity Reaction Status Date / Time adhesive Allergy Unknown BLISTERS Verified 01/24/21 12:27 Iodinated Contrast Media Allergy Unknown Swelling Verified 01/24/21 12:27 Home Medications Medication Instructions Recorded Confirmed Type clonazepam 1 mg tablet 1 mg PO DAILY PRN 02/16/19 01/24/21 History ergocalciferol (vitamin D2) 50,000 50,000 unit PO WEEKLY 02/16/19 01/24/21 History unit tablet fluticasone propionate 50 1 spray NASAL DAILY PRN 02/16/19 01/24/21 History mcg/actuation nasal spray,suspension omeprazole 20 mg capsule,delayed 20 mg PO DAILY 02/16/19 01/24/21 History release pravastatin 20 mg tablet 20 mg PO DAILY 02/16/19 01/24/21 History trazodone 50 mg tablet 50 mg PO HS 05/25/19 01/24/21 History Myrbetriq 25 mg PO DAILY 02/15/20 01/24/21 History gabapentin 300 mg TID 02/15/20 01/24/21 History tramadol 50 mg PO Q6-8H PRN 02/15/20 01/24/21 History Fiber-Tabs 625 mg PO DAILY 07/19/20 01/24/21 History Linzess 145 mcg PO DAILY 07/19/20 01/24/21 History nitrofurantoin macrocrystal 50 mg PO DAILY 07/19/20 01/24/21 History cefdinir 300 mg PO Q12H #20 cap 07/22/20 01/24/21 Rx fludrocortisone 0.1 mg PO DAILY #30 tablet 07/22/20 01/24/21 Rx midodrine 5 mg PO AC #90 tablet 07/22/20 01/24/21 Rx cephalexin 500 mg PO Q12H #14 cap 09/12/20 01/24/21 Rx Patient hx anesthesia problems: none Family hx anesthesia problems: none Results Review: All pre-operative results and documents have been reviewed as part of the pre-operative evaluation. [facility] Past Medical History Medical History Anemia Anxiety disorder Ataxia DVT (deep venous thrombosis) Gastro-esophageal reflux History of heparin-induced thrombocytopenia Hyperlipidemia Hypotension Seizure Tinea unguium Urinary tract infection Vitamin A deficiency Weakness Wheelchair dependence Family History Family History Sibling Patient's sister is in good health Patient's brother is in good health Mother Family history of malignant neoplasm of ovary, Onset Age: 32 Patient's mother is Father Patient's father is Acute myocardial infarction Social History Social History Smoking status: Never smoker Second hand tobacco smoke exposure: No Alcohol intake: never Substance use: never Substance use type: does not use Living arrangements: with family Gender identity (if verbalized by the patient): Female Spiritual care concerns: No Anes - Eval Final PreProcedure Day of Procedure 01/24/21 12:43 Patient weight: overweight Heart: regular rate and rhythm Lungs: clear to auscultation and normal air movement Airway: Mallampati scale class II Neurological: alert and oriented Last oral intake: >/= 8 hours ASA classification: IV Emergent: no Anesthetic plan: proceed Anesthesia type and monitoring: general GIVS and standard monitoring Results Review: All pre-operative results and documents have been reviewed as part of the pre-operative evaluation. Informed Consent: The patient's anesthetic plan and its attendant risks and benefits were discussed with the patient/family/POA. Questions were solicited and answers provided to the satisfaction of the patient/family/POA.
[2021-01-24] MEDS: LACTATED RINGERS 1,000 ML 150 ML IV CONT (13:15)
[2021-01-24 13:34] VITALS: BP 112/60; PULSE 68; RESP 19; O2SAT 95
[2021-01-24 13:44] VITALS: BP 99/56; PULSE 82; RESP 30; O2SAT 94
[2021-01-24 13:54] VITALS: BP 92/57; PULSE 70; RESP 22; O2SAT 93
[2021-01-24 13:55] VITALS: BP 126/68
== END 2021-01-24 14:11 | disposition home or self-care (01) ==
PROVIDERS: PCP Family Medicine; Visit Provider Internal Medicine Gastroenterology
PROC: 0DJ08ZZ Inspection of Upper Intestinal Tract, Via Natural or Artificial Opening Endoscopic (ICD-10-PCS; CPT 43235; principal; 2021-01-24 14:00)
DX: K22.2 Esophageal obstruction (principal); K22.4 Dyskinesia of esophagus; K21.00 Gastro-esophageal reflux disease with esophagitis, without bleeding; E78.5 Hyperlipidemia, unspecified; D64.9 Anemia, unspecified; R27.0 Ataxia, unspecified; F41.1 Generalized anxiety disorder; Z86.718 Personal history of other venous thrombosis and embolism; Z99.3 Dependence on wheelchair
CPT/HCPCS: 43249; 88305; C1726; J7120

== ENCOUNTER 2021-03-02 14:41 | Inpatient (IN) | payer OTHER, SELFPAY ==
[2021-03-02] VITALS (36 sets, daily range): BP systolic 104–135; BP diastolic 45–98; PULSE 53–69; RESP 13–24; TEMP 36.6; O2SAT 92–98; BMI 28.5
--- NOTE | ~2021-03-02 | MR_ITS ---
EXAMINATION: MR brain/brain stem wo con EXAM DATE: 03/05/2021 12:57 INDICATION: Ataxia and weakness. TECHNIQUE: Magnetic resonance imaging (MRI) of the brain/brain stem obtained without contrast. Sagitt al T1, axial diffusion, gradient echo (T2*), T1, T2, FLAIR sequences obtained. Comparison is made to prior examination from 07/20/2020. FINDINGS: There is mild microangiopathy and cerebral atrophy. There is hyperostosis frontalis and kevin ign bone growth along the outer table of the left temporal bone. There are no areas of restricted dif fusion to suggest acute infarction. There is no acute hemorrhage seen on the T2*, a hemosiderin sens itive sequence. No intraparenchymal brain mass. The ventricles are normal in size. There are no ext ra-axial collections. Flow voids are seen in the cerebral arteries on the T2-weighted sequences cons istent with their expected patency. Patient has had bilateral ocular lens surgery. Soft tissue is u nremarkable. Bilateral ethmoid and maxillary mucoperiosteal thickening and maxillary air-fluid leve ls, sinusitis. Sinuses were clear in July. IMPRESSION: 1. Mild age-related intracranial findings. 2. Ethmoid and maxillary mucoperiosteal thickening and air-fluid levels. Consider sinusitis. Reviewed, dictated and finalized at location G. T FURNACE BLOWER IMPRESSION: 1. Mild age-related intracranial findings. 2. Ethmoid and maxillary mucoperiosteal thickening and air-fluid levels. Consi lori sinusitis.
--- NOTE | ~2021-03-02 | XR_ITS ---
EXAMINATION: [id number] DATE: 03/07/2021 12:49 INDICATION: Left pleural effusion postthoracentesis TECHNIQUE: frontal view of the chest was obtained. COMPARISON: Chest radiograph dated 03/04/[address] dated 03/05/2021 FINDINGS: Unchanged nodular opacity right midlung zone. Resolution of prior left pleural effusion with mild res idual opacities in the left lower lung zone which could represent atelectasis and/or pneumonia. No pn eumothorax or right-sided pleural effusion. The cardiomediastinal silhouette is normal. Cholecystecto my clips in right upper quadrant. IMPRESSION: 1. Resolution of prior left pleural effusion with mild residual opacities in the left lower lung zone which could represent atelectasis and/or pneumonia. 2. Unchanged nodular opacity in the right midlung zone. See CT report dated 03/05/2021 for further det ail, comparison with priors and differential. Reviewed, dictated and finalized at location A. ER TAILER IMPRESSION: 1. Resolution of prior left pleural effusion with mild residual opacities in th e left lower lung zone which could represent atelectasis and/or pneumonia. 2. Unchanged nodular opacity in the right midlung zone. See CT report dated 02/17 for further detail, comparison with priors and differential.
--- NOTE | ~2021-03-02 | CT_ITS ---
EXAMINATION: CT abdomen pelvis wo con DATE: 03/06/2021 09:02 INDICATION: Abdominal distention. Shortness of breath. TECHNIQUE: Computed tomography (CT) of the abdomen and pelvis was performed without intravenous contr ast. Automated exposure control and iterative reconstruction technique were employed. Exam dose: 711 .41 mGy-cm total exam DLP. COMPARISON: 02/24/2020 CT chest abdomen pelvis FINDINGS: There is moderate left pleural effusion, new since 02/24/2020. There is bilateral lower lobe and lingular infiltrate and/or atelectasis, more prominent in the left lower lobe. No pericardial effusion. Stable 2.6 x 3.5 cm hepatic cyst. No other hepatic space-occupying mass lesion is evident. Status post cholecystectomy. No bile duct or pancreatic duct dilatation is detected. No pancreatic ma ss lesion or calcification. The spleen measures up to 12.8 cm length, within upper normal range. Approximately 2.4 mm nonobstructing right renal calculus. There is volume loss and extensive scarring of the left kidney, likely due to chronic pyelonephritis or possibly renal infarcts. There is prominent calcification at the proximal left renal artery. No ur eteral calculus or hydroureteronephrosis of either kidney. There is atherosclerotic calcification but normal caliber of the abdominal aorta. No intraperitoneal or retroperitoneal or pelvic mass lesion or adenopathy or ascites. Status post hysterectomy. There is moderate thickening of the urinary bladder wall and mild perivesic al stranding; cystitis is not excluded. No evidence of appendicitis. There is a prominent amount of fecal material within the colon. Some flu id levels are noted in the small bowel and right colon, which may be due to enterocolitis. No bowel o bstruction, bowel wall thickening, pneumatosis or intraperitoneal free air. Small fat-containing umbilical hernia. There is osteopenia. No suspicious osteolytic or osteoblastic lesions are noted. IMPRESSION: Moderate left pleural effusion Bilateral lower lung infiltrate and/atelectasis, most prominent in the left lower lobe Stable hepatic cyst Borderline splenic size Status post cholecystectomy There are occasional small bowel and right colon fluid levels, which might be secondary to enterocoli tis Small scarred left kidney, possibly due to chronic pyelonephritis versus infarcts Status post hysterectomy Moderate bladder wall thickening and mild perivesical fat stranding, suggesting possible cystitis Atherosclerosis Reviewed, dictated and finalized at Location A. Reviewed, dictated and finalized at location A. TRICAL LABORATORY TECHNICIAN IMPRESSION: Moderate left pleural effusion Bilateral lower lung infiltrate and/atelectasis, most prominent in the left low er lobe Stable hepatic cyst Borderline splenic size Status post cholecystectomy There are occasional small bowel and right colon fluid levels, which might be s econdary to enterocolitis Small scarred left kidney, possibly due to chronic pyelonephritis versus infarc ts Status post hysterectomy Moderate bladder wall thickening and mild perivesical fat stranding, suggesting possible cystitis Atherosclerosis
--- NOTE | ~2021-03-02 | XR_ITS ---
EXAMINATION: XR chest 1V portable INDICATION: Shortness of breath TECHNIQUE: Portable AP chest at 1608 hours COMPARISON: 09/12/2020 FINDINGS: There are patchy opacities throughout the lungs. More focal airspace opacity is seen in the left lung base without significant change. A small left pleural effusion is not definitely changed. There is no pneumothorax. The cardiomediastinal silhouette is normal. IMPRESSION: 1. Chronic left basilar airspace opacity, likely combination of pleural effusion and atelectasis. 2. Patchy bilateral airspace opacities, likely pneumonia. Reviewed, dictated and finalized at location F. ER GYPSUM IMPRESSION: 1. Chronic left basilar airspace opacity, likely combination of pleural effusio n and atelectasis. 2. Patchy bilateral airspace opacities, likely pneumonia.
--- NOTE | ~2021-03-02 | XR_ITS ---
XR chest 2V 03/04/2021 09:29 Indication: Pneumonia Procedure: 2 view chest Comparison: Comparison to multiple prior studies sequentially, with oldest reviewed study dated 06/26. Findings: Left basilar airspace disease, compatible with pneumonia. Left pleural effusion may be partially locu lated. Heart size normal. No pneumothorax. No acute osseous abnormality. Nodular density right mid th orax Impression: 1: Left basilar airspace disease, consistent with pneumonia. 2: Small left pleural effusion.. 3: Nodular density right mid thorax. Correlation with chest CT recommended to exclude parenchymal no dule. Reviewed, dictated and finalized at location A. OR JAVA J2EE DEVELOPER Impression: 1: Left basilar airspace disease, consistent with pneumonia. 2: Small left pleural effusion.. 3: Nodular density right mid thorax. Correlation with chest CT recommended to exclude parenchymal nodule.
--- NOTE | ~2021-03-02 | CT_ITS ---
EXAMINATION: CT diagnostic chest wo con EXAM DATE: 03/05/2021 13:03 INDICATION: Abnormal xray . Contrast allergy. TECHNIQUE: Spiral CT of the chest without contrast. Axial, coronal and sagittal images of the chest were reviewed. Coronal maximum intensity pixel images of chest reviewed. The dose-length product ( DLP) for this examination was 168.99 mGy-cm. The exposure was tailored according to patient size (au to mA exposure control), and iterative reconstruction (ASIR) was used as additional dose reduction te chnique. Comparison is made to prior examination from chest CT 07/20/2020, 02/24/2020. FINDINGS: There is right upper lobe inferolateral nodule measuring 1.7 cm, size and appearance is un changed compared to one year ago which would favor chronic benign process such as cryptogenic organiz ing pneumonia, basilic pneumonia, hypersensitivity pneumonitis over cancer. Similar appearing and sli ghtly larger right lower lobe nodular density was also present on prior study. There is multi segmental left lower lobe opacity with volume loss, appearance most consistent with ro und atelectasis. Pneumonia not excludable. There is small to moderate left pleural effusion. Mild car diomegaly. Mild emphysema. Tracheobronchial tree is patent. There is no mediastinal, hilar or axil raoul lymphadenopathy. There is no pneumothorax. There is mild coronary arterial calcification, ar terial sclerosis. Left liver lobe cyst. Cholecystectomy clips. There is mild thoracic spondylosis w ithout osteoblastic or osteolytic lesions identified. IMPRESSION: 1. Small to moderate left pleural effusion with multisegmental left lower lobe atelectasis. 2. Stable right upper lobe, right lower lobe nodules up to about 2 cm. Consider cryptogenic organizi ng pneumonia, isoechoic pneumonia, hypersensitivity pneumonitis, post COVID lung disease. Slow-growin g malignancy not entirely excludable. 3. Cardiomegaly. 4. Mild emphysema. Reviewed, dictated and finalized at location G. O MASK PROCESSOR IMPRESSION: 1. Small to moderate left pleural effusion with multisegmental left lower lobe atelectasis. 2. Stable right upper lobe, right lower lobe nodules up to about 2 cm. Conside r cryptogenic organizing pneumonia, isoechoic pneumonia, hypersensitivity pneum onitis, post COVID lung disease. Slow-growing malignancy not entirely excludabl e. 3. Cardiomegaly. 4. Mild emphysema.
--- NOTE | ~2021-03-02 | US_ITS ---
EXAMINATION: US thoracentesis DATE: 03/07/2021 13:04 INDICATION: Left pleural effusion TECHNIQUE: The procedure and its risks and benefits were discussed with the patient. Potential risks discussed included bleeding, infection, and pneumothorax. The patient understood the risks and agreed to proceed. The skin was prepped and draped in sterile fashion. 1% lidocaine was used for local anes thesia. Under ultrasound guidance, a 5 Fr catheter with trochar was advanced into the left pleural ef fusion. Fluid was aspirated. The catheter was removed, and a dressing was applied. There were no imme diate complications. FINDINGS: Ultrasound images demonstrate a small left pleural effusion and the catheter within the fluid. IMPRESSION: 1. Successful ultrasound-guided thoracentesis yielding 350 mL of clear mary-colored fluid. Reviewed, dictated and finalized at location A. CAL LIAISON IMPRESSION: 1. Successful ultrasound-guided thoracentesis yielding 350 mL of clear mary-c olored fluid.
--- NOTE | 2021-03-02 14:48 | ECG_ITS ---
Measurements Intervals [place] Rate: 54 P: 8 CT: 175 QRS: 27 QRSD: 89 T: 211 QT: 475 QTc: 454 Interpretive Statements SINUS BRADYCARDIA ST-T WAVE ABNORMALITY IN DIFFUSE LEADS- CONSIDER ISCHEMIA BASELINE ARTIFACT- I, II, III, AVR, AVL, AVF, V1, V3-V6 ABNORMAL ECG Electronically Signed On 03-02-2021 15:03:04 [employer] by Nnamdi Liu D.O.
[2021-03-02 15:04] LABS: Basophils Percent Auto 0.7 % (0.2-1.2); Eosinophils Absolute Auto 0.1 K/mm3 (0-0.3); Eosinophils Percent Auto 1.5 % (0-4.4); Hematocrit 40.2 % (37.0-47.0); Hemoglobin 13.5 g/dL (12.0-15.0); Immature Granulocyte Absolute 0.01 K/mm3 (0.00-0.031); Immature Granulocyte Percent A 0.2 % (0-0.5); Lymphocytes Absolute Auto 1.01 K/mm3 (0.9-3.2); Lymphocytes Percent Auto 22.1 % (18.3-44.2); Mean Corpuscular HGB Conc 33.6 g/dl (32-36); Mean Corpuscular Hemoglobin 29.3 pg (26-34); Mean Corpuscular Volume 87.2 fl (80-100); Mean Platelet Volume 8.7 fl (7.4-10.4); Monocytes Absolute Auto 0.5 K/mm3 (0.1-0.6); Monocytes Percent Auto 11.4 % (2.6-8.5); Neutrophils Absolute Auto 2.9 K/mm3 (1.3-6.7); Neutrophils Percent Auto 64.1 % (45.5-73.1); Platelet Count Result 169 k/mm3 (150-375); Red Blood Count 4.61 M/mm3 (4.2-5.4); Red Cell Distribution Width 14.1 % (11.5-14.5); White Blood Count 4.6 K/mm3 (4.5-10.0)
[2021-03-02 15:12] LABS: INR 1.1; Prothrombin Time 13.7 Seconds (11.1-14.7)
[2021-03-02 15:13] LABS: Partial Thromboplastin Time 26.9 SECONDS (22.3-36.8)
[2021-03-02 15:26] LABS: Add Urine Microscopic? YES; Appearance Urine Clear (Clear); Bilirubin Urine Negative (Negative); Blood Urine Negative (Negative); Color Urine Yellow (Yellow); Glucose Urine UA 1+ mg/dL (Negative); Ketones Urine Negative (Negative); Leukocyte Esterase Ur Negative LEU/UL (Negative); Nitrate Urine Negative (Negative); Protein Urine Negative (Negative); Specific Grav Ur 1.016 (1.001-1.035); Squamous Epithelial Cell Urine Few /hpf (Few); Urobilinogen Urine Negative mg/dL (<2.0); WBC Urine 0-3 /hpf
--- NOTE | 2021-03-02 15:57 | ED.AMS ---
HPI - Altered Mental Status General Chief Complaint: Altered Mental Status Stated Complaint: ams Time Seen by Provider: 03/02/21 15:06 History of Present Illness HPI narrative: 75-year-old female presented to the emergency department from an assisted living for evaluation of increased fatigue and intermittent hallucinations. Patient was started on antibiotics for suspected pneumonia approximately 1 week ago. Patient states at that time she did have increased lung congestion and feels that her breathing has improved. Patient states that over the course of the last week that she has had increasing fatigue. At this time patient states that she feels she is unable to care for herself at the assisted living. Patient denies any falls or injuries. Patient denies any chest pain. Patient denies any abdominal pain but does report associated nausea without vomiting. Patient does have a previous history of multiple system atrophy Related Data Home Medications Medication Instructions Recorded Confirmed clonazepam 1 mg tablet 1 mg PO DAILY PRN 02/16/19 03/02/21 ergocalciferol (vitamin D2) 50,000 50,000 unit PO WEEKLY 02/16/19 03/02/21 unit tablet fluticasone propionate 50 2 spray NASAL DAILY PRN 02/16/19 03/02/21 mcg/actuation nasal spray,suspension omeprazole 20 mg capsule,delayed 40 mg PO DAILY 02/16/19 03/02/21 release pravastatin 20 mg tablet 20 mg PO DAILY 02/16/19 03/02/21 trazodone 50 mg tablet 50 mg PO HS 05/25/19 03/02/21 Myrbetriq 25 mg PO DAILY 02/15/20 03/02/21 gabapentin 300 mg PO TID 02/15/20 03/02/21 tramadol 50 mg PO Q6-8H PRN 02/15/20 03/02/21 Fiber-Tabs 625 mg PO DAILY 07/19/20 03/02/21 Linzess 145 mcg PO DAILY 07/19/20 03/02/21 nitrofurantoin macrocrystal 50 mg PO DAILY 07/19/20 03/02/21 benzonatate 200 mg PO TID PRN 03/02/21 03/02/21 midodrine 5 mg PO DAILY 03/02/21 03/02/21 nystatin 1 applic TOPICAL BID 03/02/21 03/02/21 Allergies Allergy/AdvReac Type Severity Reaction Status Date / Time adhesive Allergy Unknown BLISTERS Verified 03/02/21 21:56 Iodinated Contrast Media Allergy Unknown Swelling Verified 03/02/21 21:56 Review of Systems Review of Systems: CONSTITUTIONAL: Does report increased fatigue EYES: Denies visual changes, redness, or discharge. ENT: Denies rhinorrhea, congestion, sore throat, or otalgia. CARDIOVASCULAR: Denies chest pain, palpitations, or edema. RESPIRATORY: Tarzan that her cough was improving GASTROINTESTINAL: Denies abdominal pain, nausea, vomiting, or diarrhea. GENITOURINARY: Denies dysuria or hematuria. SKIN: Denies rash or itching. MUSCULOSKELETAL: Denies back pain, joint pain, or myalgia. NEUROLOGIC: Denies headache, numbness, or weakness. PSYCHIATRIC: Denies anxiety or depression. [facility] Past Medical History Medical History (Updated 03/02/21 @ 22:42 by Belkys Gtz NP) Acute UTI Anemia Anxiety disorder Ataxia COVID-19 virus infection DVT (deep venous thrombosis) Fracture of tibial shaft, right, closed Gastro-esophageal reflux History of heparin-induced thrombocytopenia Hyperlipidemia Hypotension Leg weakness, bilateral Seizure Tinea unguium Urinary tract infection Vitamin A deficiency Weakness Wheelchair dependence Surgical History Surgical History (Updated 03/02/21 @ 22:42 by Belkys Gtz NP) H/O bilateral cataract extraction H/O: hysterectomy Hx of cholecystectomy Family History Family History Sibling Patient's sister is in good health Patient's brother is in good health Mother Family history of malignant neoplasm of ovary, Onset Age: 32 Patient's mother is Father Patient's father is Acute myocardial infarction Social History Social History (Updated 03/02/21 @ 22:43 by Belkys Gtz NP) Social History: The patient lives home alone at the [facility] living although she is . The does not live with her. The patient has 2
[2021-03-02 17:05] LABS: Influenza A QL RT-PCR Negative (Negative); Influenza B QL RT-PCR Negative (Negative); SARS-CoV-2 RNA PCR Negative
[2021-03-02 17:05] LABS: Alanine Aminotransferase 17 U/L (4-35); Albumin Level 3.8 g/dL (3.5-5.1); Alkaline Phosphatase 105 U/L (38-126); Anion Gap 12 mmol/L (8-16); Aspartate Amino Transferase 27 U/L (14-36); Bilirubin,Total 0.8 mg/dL (0.2-1.3); Blood Urea Nitrogen 37 mg/dL (7-17); Calcium 9.5 mg/dL (8.4-10.2); Carbon Dioxide 27 mmol/L (22-30); Chloride 106 mmol/L (98-107); Estimated Glomerular Filt Rate 40; Glucose 109 mg/dL (65-110); Potassium 3.9 mmol/L (3.4-5.0); Sodium 145 mmol/L (137-145)
[2021-03-02] MEDS: PLEASE ENTER HEIGHT XX (17:53)
[2021-03-02] MEDS: ONDANSETRON INJ 4 MG/2 ML VIAL IV PUSH (18:56)
--- NOTE | 2021-03-02 20:35 | ADMGEN ---
This patient, Ana Stewart, was admitted to Medical Room 248-. Patient/family oriented to hospital policies and general routines including ID bracelet, bed and alarms, visiting hours, pain management, procedures, bathroom and other care routines, personal items, smoking policy, room service/diet, and visiting hours. Information on how to activate the Rapid Response Team has been discussed. Patient/Family are encouraged to report perceived risks to care and to ask questions if they do not understand what they are told or what they should do.
--- NOTE | 2021-03-02 22:33 | PM.IMHP ---
H&P: HPI History of Present Illness Date/Time: 03/02/212129 this is a 75 year old female patient who resides in [facility]. The patient came to the emergency room to be evaluated for increased fatigue and intermittent loose Nations. The patient stated that she has been having symptoms for approximately 3 weeks. The patient stated that she was given p.o. antibiotics outpatient but her lung congestion continued to increase and she feels that she is short of breath. The patient feels that she is unable to take care of herself in [facility] at this time. The patient denies any abdominal pain nausea vomiting or fever chills. She does not have an elevated white count and she is afebrile. Her heart rates in the 50s and her blood pressure is 130/45. Her pulse ox was 92%. The patient was found to be negative for influenza as well as COVID-19. Her chest x-ray was read as chronic left basilar airspace opacities, likely combination of pleural effusion atelectasis. Patchy bilateral airspace opacities likely pneumonia. The patient was started on Zosyn. Blood cultures are pending. Creatinine 1.3 which is her baseline. The patient is being admitted to observation status on the date of service of 03/02/2021 Chief Complaint: Shortness of breath and weakness Review of Systems Review of Systems: All systems reviewed & are unremarkable except as noted in HPI and below Constitutional: Constitutional: Reports as per HPI and Reports no additional constitutional complaints Eyes: Eyes: Reports as per HPI and Reports no additional eye complaints ENT: Reports system reviewed and no additional complaints, except as documented and Reports Normal hearing present Cardiovascular: Cardiovascular: Reports no additional cardiovascular complaints Respiratory: Respiratory: Reports no additional respiratory complaints and Reports no additional respiratory complaints Gastrointestinal: Gastrointestinal: Reports as per HPI and Reports no additional gastrointestinal complaints Musculoskeletal: Musculoskeletal: Reports no additional musculoskeletal complaints Integumentary/Breasts: Skin/Breast: Reports system reviewed and no additional complaints, except as docu and Reports as per HPI Neurologic: Reports system reviewed and no additional complaints, except as documented, Reports as per HPI and Reports Normal hearing present Psychiatric: Psychiatric: Reports no additional psychiatric complaints and Reports as per HPI Endocrine: Endocrine: Reports no additional endocrine complaints Hematologic/Lymphatic: Hematologic/Lymphatic: Reports no additional hematologic/lymphatic complaints Allergic/Immunologic: Allergic/Immunologic: Reports no additional allergic/immunologic complaints [facility] Past Medical History Medical History (Updated 03/02/21 @ 22:42 by Belkys Gtz NP) Acute UTI Anemia Anxiety disorder Ataxia COVID-19 virus infection DVT (deep venous thrombosis) Fracture of tibial shaft, right, closed Gastro-esophageal reflux History of heparin-induced thrombocytopenia Hyperlipidemia Hypotension Leg weakness, bilateral Seizure Tinea unguium Urinary tract infection Vitamin A deficiency Weakness Wheelchair dependence Surgical History Surgical History (Updated 03/02/21 @ 22:42 by Belkys Gtz NP) H/O bilateral cataract extraction H/O: hysterectomy Hx of cholecystectomy Family History Family History Sibling Patient's sister is in good health Patient's brother is in good health Mother Family history of malignant neoplasm of ovary, Onset Age: 32 Patient's mother is Father Patient's father is Acute myocardial infarction Social History Social History (Updated 03/02/21 @ 22:43 by Belkys Gtz NP) Social History: The patient lives home alone at the [facility] living although she is . The does not live with her. The
[2021-03-02] MEDS: traZODone HCL 50 MG TABLET PO (23:48)
[2021-03-03 04:01] VITALS: BP 140/70; PULSE 64; RESP 18; TEMP 36.3; O2SAT 93
[2021-03-03] MEDS: LINACLOTIDE 145 MCG CAPSULE PO (06:30)
[2021-03-03] MEDS: MIRABEGRON 25 MG ER TABLET PO (08:54)
[2021-03-03] MEDS: PANTOPRAZOLE 40 MG TABLET PO ×2 (08:55→16:39)
[2021-03-03] MEDS: calcium polycarbophiL 625 MG TABLET PO (08:55)
[2021-03-03] MEDS: GABAPENTIN 300 MG CAPSULE PO ×3 (08:55→16:39)
[2021-03-03] MEDS: NITROFURANTOIN MACROCRYSTALS 50 MG CAP PO (08:55)
[2021-03-03] MEDS: MIDODRINE HCL 2.5 MG TABLET 5 MG PO (08:55)
[2021-03-03] MEDS: MICONAZOLE NITRATE 2% CREAM 30 GM TUBE 1 APPLIC TOPICAL ×2 (08:55→16:39)
[2021-03-03] MEDS: FLUDROCORTISONE ACETATE 0.1 MG TABLET PO (08:55)
[2021-03-03] MEDS: PRAVASTATIN SODIUM 20 MG TABLET PO (08:55)
[2021-03-03] MEDS: ENOXAPARIN 40 MG/0.4 ML SYRINGE SUB-Q (08:56)
--- NOTE | 2021-03-03 09:28 | PM.IMPN ---
Progress Note: A&P Assessment and Plan (1) Pneumonia: Qualifiers: Laterality: bilateral Lung location: unspecified part of lung Pneumonia type: due to unspecified organism Qualified Code(s): J18.9 - Pneumonia, unspecified organism Code(s): J18.9 - Pneumonia, unspecified organism Status: Acute Assessment and Plan: Continue with Zosyn. Continue with albuterol inhaler. Blood and sputum cultures are pending. Continue with benzonatate (2) Anxiety disorder: Code(s): F41.9 - Anxiety disorder, unspecified Status: Chronic Assessment and Plan: Continue with clonazepam (3) Ataxia: Code(s): R27.0 - Ataxia, unspecified Status: Chronic Assessment and Plan: The patient's sees a neurologist outpatient for this. (4) Hyperlipidemia: Qualifiers: Hyperlipidemia type: unspecified Qualified Code(s): E78.5 - Hyperlipidemia, unspecified Code(s): E78.5 - Hyperlipidemia, unspecified Status: Chronic Assessment and Plan: Continue with pravastatin. (5) Hypotension: Qualifiers: Hypotension type: neurogenic orthostatic hypotension Qualified Code(s): G90.3 - Multi-system degeneration of the autonomic nervous system Code(s): I95.9 - Hypotension, unspecified Status: Acute Assessment and Plan: Continue with Primatene Additional Plan 03/03/2021 Plan is to continue current antibiotics. Repeat CBC CMP and x-ray chest in the morning. Monitor culture reports. Patient is gradually getting better. Subjective Date/time seen: 03/03/21 09:28 Patient was seen during the morning rounds today. Feeling slightly better. Decreased shortness of breath. No chest pain. No abdominal pain, no nausea, no vomiting. Mood stable Review of Systems Review of Systems: All systems reviewed & are unremarkable except as noted in HPI and below Constitutional: Constitutional: Reports as per HPI and Reports no additional constitutional complaints Eyes: Eyes: Reports as per HPI and Reports no additional eye complaints ENT: Reports system reviewed and no additional complaints, except as documented and Reports Normal hearing present Cardiovascular: Cardiovascular: Reports no additional cardiovascular complaints Respiratory: Respiratory: Reports no additional respiratory complaints and Reports no additional respiratory complaints Gastrointestinal: Gastrointestinal: Reports as per HPI and Reports no additional gastrointestinal complaints Musculoskeletal: Musculoskeletal: Reports no additional musculoskeletal complaints Integumentary/Breasts: Skin/Breast: Reports system reviewed and no additional complaints, except as docu and Reports as per HPI Neurologic: Reports system reviewed and no additional complaints, except as documented, Reports as per HPI and Reports Normal hearing present Psychiatric: Psychiatric: Reports no additional psychiatric complaints and Reports as per HPI Endocrine: Endocrine: Reports no additional endocrine complaints Hematologic/Lymphatic: Hematologic/Lymphatic: Reports no additional hematologic/lymphatic complaints Allergic/Immunologic: Allergic/Immunologic: Reports no additional allergic/immunologic complaints Exam Const: General: cooperative, healthy appearing, comfortable, no acute distress, well developed, alert, awake and Physically active Nutritional Appearance: average body habitus and well nourished Orientation/consciousness: oriented to person, oriented to place, oriented to time and patient oriented x3 Limitations: no limitations HENMT: Head: normal to inspection, No palpable skull fracture present and normocephalic Ears: hearing grossly normal bilaterally and external ears normal General nose exam: Normal external nose present Eyes: General: appearance normal, both eyes and all related structures Pupils: Equal, round and reactive pupils present Neck: Neck: normal visual inspection Chest: Ches
[2021-03-03] MEDS: DOCUSATE SODIUM 100 MG CAPSULE PO ×2 (12:43→19:37)
[2021-03-03 15:15] VITALS: BP 149/68; PULSE 68; RESP 16; TEMP 36.4; O2SAT 97
[2021-03-03 19:23] VITALS: BP 148/67; PULSE 71; RESP 16; TEMP 37.1; O2SAT 96
[2021-03-03] MEDS: traZODone HCL 50 MG TABLET PO (19:37)
[2021-03-04 03:40] VITALS: BP 127/59; PULSE 60; RESP 14; TEMP 37; O2SAT 93
[2021-03-04 05:36] LABS: Hematocrit 36.7 % (37.0-47.0); Hemoglobin 12.2 g/dL (12.0-15.0); Mean Corpuscular HGB Conc 33.2 g/dl (32-36); Mean Corpuscular Hemoglobin 29.7 pg (26-34); Mean Corpuscular Volume 89.3 fl (80-100); Mean Platelet Volume 9.5 fl (7.4-10.4); Platelet Count Result 143 k/mm3 (150-375); Red Blood Count 4.11 M/mm3 (4.2-5.4); Red Cell Distribution Width 14.2 % (11.5-14.5); White Blood Count 3.4 K/mm3 (4.5-10.0)
[2021-03-04 05:51] LABS: Alanine Aminotransferase 21 U/L (4-35); Albumin Level 3.1 g/dL (3.5-5.1); Alkaline Phosphatase 97 U/L (38-126); Anion Gap 7 mmol/L (8-16); Aspartate Amino Transferase 31 U/L (14-36); Bilirubin,Total 0.9 mg/dL (0.2-1.3); Blood Urea Nitrogen 30 mg/dL (7-17); Calcium 8.8 mg/dL (8.4-10.2); Carbon Dioxide 26 mmol/L (22-30); Chloride 105 mmol/L (98-107); Estimated CRCL calculation 37 ml/min; Estimated Glomerular Filt Rate 49; Glucose 111 mg/dL (65-110); Potassium 3.4 mmol/L (3.4-5.0); Sodium 138 mmol/L (137-145)
[2021-03-04] MEDS: LINACLOTIDE 145 MCG CAPSULE PO (06:07)
[2021-03-04] MEDS: MIRABEGRON 25 MG ER TABLET PO (09:55)
[2021-03-04] MEDS: PRAVASTATIN SODIUM 20 MG TABLET PO (09:55)
[2021-03-04] MEDS: calcium polycarbophiL 625 MG TABLET PO (09:55)
[2021-03-04] MEDS: PANTOPRAZOLE 40 MG TABLET PO ×2 (09:56→17:31)
[2021-03-04] MEDS: MIDODRINE HCL 2.5 MG TABLET 5 MG PO (09:56)
[2021-03-04] MEDS: GABAPENTIN 300 MG CAPSULE PO ×3 (09:56→17:31)
[2021-03-04] MEDS: NITROFURANTOIN MACROCRYSTALS 50 MG CAP PO (09:56)
[2021-03-04] MEDS: ENOXAPARIN 40 MG/0.4 ML SYRINGE SUB-Q (09:56)
[2021-03-04] MEDS: FLUDROCORTISONE ACETATE 0.1 MG TABLET PO (09:56)
[2021-03-04] MEDS: DOCUSATE SODIUM 100 MG CAPSULE PO ×2 (09:56→20:38)
--- NOTE | 2021-03-04 11:44 | PM.IMPN ---
Progress Note: A&P Assessment and Plan (1) Pneumonia: Qualifiers: Laterality: bilateral Lung location: unspecified part of lung Pneumonia type: due to unspecified organism Qualified Code(s): J18.9 - Pneumonia, unspecified organism Code(s): J18.9 - Pneumonia, unspecified organism Status: Acute Assessment and Plan: Continue with Zosyn. Continue with albuterol inhaler. BC negative, wcc normal. Cough and sob are improving (2) Anxiety disorder: Code(s): F41.9 - Anxiety disorder, unspecified Status: Chronic Assessment and Plan: Continue with clonazepam (3) Ataxia: Code(s): R27.0 - Ataxia, unspecified Status: Chronic Assessment and Plan: The patient's sees a neurologist outpatient for this. Rpt MRI brain tomorrow, Continue Physical therapy here. If Mri is negative consider DC tomorrow back to her neurologist. pt will need further PT (4) Hyperlipidemia: Qualifiers: Hyperlipidemia type: unspecified Qualified Code(s): E78.5 - Hyperlipidemia, unspecified Code(s): E78.5 - Hyperlipidemia, unspecified Status: Chronic Assessment and Plan: Continue with pravastatin. (5) Hypotension: Qualifiers: Hypotension type: neurogenic orthostatic hypotension Qualified Code(s): G90.3 - Multi-system degeneration of the autonomic nervous system Code(s): I95.9 - Hypotension, unspecified Status: Acute Assessment and Plan: Continue with Primatene, continue to monitor orthostatics in hospital when standing Additional Plan . Subjective Date/time seen: 03/04/21 11:44 Interval history: 75 year old female patient who resides in training assistant living. The patient came to the emergency room to be evaluated for increased fatigue and intermittent loose motions. Pt admitted for pneumonia, neurogenic orthostatic hypotension, anxiety and ataxia. Pt feels like she is breathing better but still complains of dizziness and weakness in both her legs and left arm. Pt sees outpatient neurology, pt had MRI brain in july 2020. Review of Systems Review of Systems: All systems reviewed & are unremarkable except as noted in HPI and below Exam Neck: Neck: normal visual inspection Chest: Chest palpation & inspection: normal inspection of the chest Resp: Effort & Inspection: normal respiratory effort Auscultation: clear to auscultation bilaterally Cardio: Palpation: normal PMI Rate: regular rate Rhythm: regular rhythm GI: Inspection: normal to inspection Auscultation: normal bowel sounds Neuro: General: oriented to person, oriented to place, oriented to time and patient oriented x3 Cranial nerves: Yes Equal, round and reactive pupils present and Yes Normal hearing present Cognition (Neuro): normal cognition Speech: normal speech Motor exam (neuro): Other motor observations present (BL leg weakness 4/5 L arm weakness 4/5 ) Sensory Exam: normal sensation Extrem: General: normal to inspection Right upper extremity: normal to inspection Left upper extremity: normal to inspection Right lower extremity: normal to inspection Left lower extremity: normal to inspection Psych: Appearance: grossly normal Mental Status: mental status grossly normal Speech and movement: Normal speech and movement present Affect: normal affect Attitude: cooperative Thought process: Normal thought process present Insight: Good insight present (Psych) Judgement: Good judgement present (Psych) Objective Data Vital Signs Vital Signs: Vital Signs - 24 hr 03/03/21 15:15 03/03/21 19:23 03/04/21 03:40 Temperature 36.4 C 37.1 C 37.0 C Pulse Rate 68 71 60 Respiratory Rate 16 16 14 Blood Pressure 149/68 H 148/67 H 127/59 L Pulse Oximetry 97 96 93 Intake/Output Intake/Output: Intake & Output 03/01/21 03/02/21 03/03/21 03/04/21 23:59 23:59 23:59 23:59 Intake Total 50 1390 440 Output Total 400 400 Balance 50 990 40 Meds/Results Med
[2021-03-04] MEDS: MICONAZOLE NITRATE 2% CREAM 30 GM TUBE 1 APPLIC TOPICAL ×2 (12:58→17:31)
[2021-03-04 14:00] VITALS: BP 173/66; PULSE 64; RESP 18; TEMP 36.1; O2SAT 97
[2021-03-04] MEDS: ONDANSETRON INJ 4 MG/2 ML VIAL IV PUSH (14:22)
[2021-03-04 19:56] VITALS: BP 174/75; PULSE 64; RESP 18; TEMP 36.1; O2SAT 95
[2021-03-04] MEDS: traZODone HCL 50 MG TABLET PO (20:37)
[2021-03-04 21:29] VITALS: BP 132/68
[2021-03-05 03:47] VITALS: BP 131/62; PULSE 64; RESP 18; TEMP 36.6; O2SAT 94
[2021-03-05] MEDS: LINACLOTIDE 145 MCG CAPSULE PO (06:22)
[2021-03-05] MEDS: ONDANSETRON INJ 4 MG/2 ML VIAL IV PUSH (06:23)
[2021-03-05 07:36] LABS: Anion Gap 7 mmol/L (8-16); Blood Urea Nitrogen 24 mg/dL (7-17); Calcium 8.8 mg/dL (8.4-10.2); Carbon Dioxide 26 mmol/L (22-30); Chloride 105 mmol/L (98-107); Estimated CRCL calculation 44 ml/min; Estimated Glomerular Filt Rate > 60; Glucose 115 mg/dL (65-110); Potassium 3.3 mmol/L (3.4-5.0); Sodium 138 mmol/L (137-145)
[2021-03-05] MEDS: MIRABEGRON 25 MG ER TABLET PO (08:06)
[2021-03-05] MEDS: NITROFURANTOIN MACROCRYSTALS 50 MG CAP PO (08:06)
[2021-03-05] MEDS: PANTOPRAZOLE 40 MG TABLET PO ×2 (08:06→17:08)
[2021-03-05] MEDS: PRAVASTATIN SODIUM 20 MG TABLET PO (08:07)
[2021-03-05] MEDS: DOCUSATE SODIUM 100 MG CAPSULE PO ×2 (08:07→20:31)
[2021-03-05] MEDS: ERGOCALCIFEROL 50,000 UNIT CAPSULE 50000 UNITS PO (08:07)
[2021-03-05] MEDS: FLUDROCORTISONE ACETATE 0.1 MG TABLET PO (08:07)
[2021-03-05] MEDS: GABAPENTIN 300 MG CAPSULE PO ×3 (08:07→17:08)
[2021-03-05] MEDS: MIDODRINE HCL 2.5 MG TABLET 5 MG PO (08:07)
[2021-03-05] MEDS: calcium polycarbophiL 625 MG TABLET PO (08:07)
[2021-03-05] MEDS: ENOXAPARIN 40 MG/0.4 ML SYRINGE SUB-Q (08:07)
[2021-03-05] MEDS: MICONAZOLE NITRATE 2% CREAM 30 GM TUBE 1 APPLIC TOPICAL ×2 (08:08→17:09)
[2021-03-05] MEDS: POTASSIUM CHLORIDE 20 MEQ TABLET 40 MEQ PO (13:11)
[2021-03-05 14:10] VITALS: BP 159/72; PULSE 62; RESP 16; TEMP 36.5; O2SAT 96
--- NOTE | 2021-03-05 15:18 | PM.IMPN ---
Progress Note: A&P Assessment and Plan (1) Pneumonia: Qualifiers: Laterality: bilateral Lung location: unspecified part of lung Pneumonia type: due to unspecified organism Qualified Code(s): J18.9 - Pneumonia, unspecified organism Code(s): J18.9 - Pneumonia, unspecified organism Status: Acute Assessment and Plan: -Continue with Zosyn. -Continue with albuterol inhaler. -BC negative, wcc normal. -Cough and sob are improving -CXR w/ nodular density right mid thorax, CT chest ordered for further investigation (2) Anxiety disorder: Code(s): F41.9 - Anxiety disorder, unspecified Status: Chronic Assessment and Plan: Continue with clonazepam (3) Ataxia: Code(s): R27.0 - Ataxia, unspecified Status: Chronic Assessment and Plan: The patient's sees a neurologist outpatient for this. Rpt MRI brain today, Continue Physical therapy here. If MRI is negative consider DC tomorrow back to her neurologist. pt will need further PT (4) Hyperlipidemia: Qualifiers: Hyperlipidemia type: unspecified Qualified Code(s): E78.5 - Hyperlipidemia, unspecified Code(s): E78.5 - Hyperlipidemia, unspecified Status: Chronic Assessment and Plan: Continue with pravastatin. (5) Hypotension: Qualifiers: Hypotension type: neurogenic orthostatic hypotension Qualified Code(s): G90.3 - Multi-system degeneration of the autonomic nervous system Code(s): I95.9 - Hypotension, unspecified Status: Acute Assessment and Plan: Continue with Primatene, continue to monitor orthostatics in hospital when standing Additional Plan . 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 The patient came to the emergency room to be evaluated for increased fatigue and intermittent loose motions. Pt admitted for pneumonia, neurogenic orthostatic hypotension, anxiety and ataxia. Pt reports that she feels she is at her baseline weakness. She is breathing well. Reports diarrhea but this is chronic. No other complaints. Review of Systems Review of Systems: +fatigue denies cp or sob +diarrhea, no abd pain +nausea Exam Narrative: General: No acute distress, non toxic appearing, elderly Eyes: PERRL, no scleral icterus HEENT: NCAT, external ears normal, MMM Respiratory: No respiratory distress, Lungs CTA bilaterally, no wheezing Cardiovascular: RRR, no murmur Abdominal: Soft, nontender, non distended, no rebound or guarding Musculoskeletal: Moves all 4 extremities, no edema Neurological: A/Ox3, speech normal, no facial asymmetry Skin: Warm, dry, no rashes Psychiatric: Normal affect, normal mood Objective Data Vital Signs Vital Signs: Vital Signs - 24 hr 03/04/21 19:56 03/04/21 21:29 03/05/21 03:47 Temperature 96.9 F L 97.8 F Pulse Rate 64 64 Respiratory Rate 18 18 Blood Pressure 174/75 H 132/68 131/62 Pulse Oximetry 95 94 03/05/21 14:10 Temperature 97.7 F Pulse Rate 62 Respiratory Rate 16 Blood Pressure 159/72 H Pulse Oximetry 96 Intake/Output Intake/Output: Intake & Output 03/02/21 03/03/21 03/04/21 03/05/21 23:59 23:59 23:59 23:59 Intake Total 50 1390 660 560 Output Total 400 1000 600 Balance 50 990 -340 -40 Meds/Results Medications: Active Medications Generic Name Dose Route Start Last Admin Trade Name Freq PRN Reason Stop Dose Admin Albuterol 2 puff 03/02/21 22:47 Albuterol Sulfate (*Sp) Aerosol 1 Puff INHALATION Q6HRT PRN Shortness Of Breath Benzonatate 200 mg 03/02/21 22:48 Benzonatate 100 Mg Capsule PO TID PRN Cough Calcium Polycarbophil 625 mg 03/03/21 09:00 03/05/21 08:07 Calcium Polycarbophil 625 Mg Tablet PO 625 mg DAILY NORAH Administration Clonazepam 1 mg 03/02/21 22:48 Clonazepam (*Crx) 0.5 Mg Tablet PO
[2021-03-05] MEDS: CALCIUM CARBONATE (TUMS) 500 MG (200 MG ELEMENTAL) PO (18:47)
[2021-03-05] MEDS: traZODone HCL 50 MG TABLET PO (20:31)
[2021-03-05 22:00] VITALS: BP 159/75; PULSE 63; RESP 20; TEMP 36.4; O2SAT 98
[2021-03-05 22:05] VITALS: BP 157/91; PULSE 64; RESP 20; TEMP 36.4; O2SAT 98
--- NOTE | 2021-03-06 | ECHO_ITS ---
Patient Info Name: Ana Stweart Age: 75 years : 1945 Gender: Female Ht: 62 in Wt: 156 lbs BSA: 1.78 m2 HR: 61 bpm BP: 155 / 78 mmHg Heart Rhythm: Sinus Rhythm Technical Quality: Fair Exam Date: 03/06/2021 2:45 PM Exam Location: [facility] Card Pulmonary Patient Status: Inpatient Admit Date: 03/04/2021 Staff Ordering Physician: Laura Kaur PA-C Acid Mixer: Cinthya Rod RDCS Attending Provider: Laura Kaur PA-C Referring Physician: Vincent CONNOLLY; Exam Type: CA echo doppler color flow Study Info Indications - leg swelling, sob Complete two-dimensional, color flow and Doppler transthoracic echocardiogram is performed. Summary 1. Complete two-dimensional, color flow and Doppler transthoracic echocardiogram is performed. 2. Left ventricular chamber dimension is normal. 3. Left ventricular systolic function is normal, estimated at 65-70%. 4. There is no increased left ventricular wall thickness. 5. The left ventricular diastolic function is grade I diastolic dysfunction. 6. Left atrial chamber dimension is mildly enlarged. 7. There is mild mitral valve regurgitation. Left Ventricle Left ventricular chamber dimension is normal. Left ventricular systolic function is normal, estimated at 65-70%. There is no increased left ventricular wall thickness. The left ventricular diastolic function is grade I diastolic dysfunction. Right Ventricle Right ventricular chamber dimension is normal. Right ventricular systolic function is normal. Left Atria Left atrial chamber dimension is mildly enlarged. Right Atria Right atrial chamber dimension is normal. Atrial Septum Intact interatrial septum visualized by color flow imaging. Aortic Valve The aortic valve is trileaflet. There is mild aortic valve sclerosis. There is no aortic valve stenosis. There is trace aortic valve regurgitation. Pulmonic Valve The pulmonic valve is normal. There is no pulmonic valve stenosis. There is trace pulmonic regurgitation. Mitral Valve The mitral valve has normal leaflets. There is no mitral valve stenosis. There is mild mitral valve regurgitation. Tricuspid Valve The tricuspid valve leaflets are normal. There is no significant tricuspid valve stenosis. There is trace tricuspid valve regurgitation. No pulmonary hypertension, estimated pulmonary arterial systolic pressure is 25 mmHg. Pericardium/Pleural The pericardium appears normal. There is no pericardial effusion. Inferior Vena Cava Normal inferior vena cava with >50% collapse upon inspiration consistent with normal right atrial pressure, 10 mmHg. Aorta The aortic root size at the sinus of Valsalva is normal. Left Ventricular Outflow Tract Name Value Normal LVOT 2D LVOT Diameter 2.0 cm LVOT Doppler LVOT Peak Gradient 5 mmHg LVOT Mean Gradient 2 mmHg LVOT VTI 25 cm LVOT VTI/AV VTI Ratio 0.7 LVOT Stroke Volume 75 ml LVOT CO 4.
[2021-03-06 05:42] LABS: Eosinophils Absolute Auto 0.2 K/mm3 (0-0.3); Eosinophils Percent Auto 7.8 % (0-4.4); Hematocrit 36.4 % (37.0-47.0); Lymphocytes Absolute Auto 0.88 K/mm3 (0.9-3.2); Lymphocytes Percent Auto 28.7 % (18.3-44.2); Mean Corpuscular Hemoglobin 29.2 pg (26-34); Mean Corpuscular Volume 88.6 fl (80-100); Mean Platelet Volume 9.5 fl (7.4-10.4); Monocytes Absolute Auto 0.3 K/mm3 (0.1-0.6); Monocytes Percent Auto 10.4 % (2.6-8.5); Neutrophils Absolute Auto 1.6 K/mm3 (1.3-6.7); Neutrophils Percent Auto 52.1 % (45.5-73.1); Platelet Count Result 151 k/mm3 (150-375); Red Blood Count 4.11 M/mm3 (4.2-5.4); Red Cell Distribution Width 14.2 % (11.5-14.5); White Blood Count 3.1 K/mm3 (4.5-10.0)
[2021-03-06 05:57] LABS: Anion Gap 5 mmol/L (8-16); Blood Urea Nitrogen 21 mg/dL (7-17); Calcium 9.2 mg/dL (8.4-10.2); Carbon Dioxide 27 mmol/L (22-30); Chloride 106 mmol/L (98-107); Estimated CRCL calculation 40 ml/min; Estimated Glomerular Filt Rate 54; Glucose 98 mg/dL (65-110); Potassium 3.7 mmol/L (3.4-5.0); Sodium 138 mmol/L (137-145)
[2021-03-06 06:00] VITALS: BP 157/75; PULSE 65; RESP 18; TEMP 36.4; O2SAT 96
[2021-03-06] MEDS: LINACLOTIDE 145 MCG CAPSULE PO (06:26)
--- NOTE | 2021-03-06 08:30 | PCOTNOTE ---
Attempted to see patient this am, however RN advised not to see at this time secondary to patient having CT scan.
[2021-03-06] MEDS: DOCUSATE SODIUM 100 MG CAPSULE PO ×2 (09:20→22:44)
[2021-03-06] MEDS: GABAPENTIN 300 MG CAPSULE PO ×3 (09:20→17:18)
[2021-03-06] MEDS: MIRABEGRON 25 MG ER TABLET PO (09:21)
[2021-03-06] MEDS: NITROFURANTOIN MACROCRYSTALS 50 MG CAP PO (09:21)
[2021-03-06] MEDS: ENOXAPARIN 40 MG/0.4 ML SYRINGE SUB-Q (09:21)
[2021-03-06] MEDS: FLUDROCORTISONE ACETATE 0.1 MG TABLET PO (09:21)
[2021-03-06] MEDS: PANTOPRAZOLE 40 MG TABLET PO ×2 (09:21→17:19)
[2021-03-06] MEDS: MIDODRINE HCL 2.5 MG TABLET 5 MG PO (09:21)
[2021-03-06] MEDS: PRAVASTATIN SODIUM 20 MG TABLET PO (09:21)
[2021-03-06] MEDS: calcium polycarbophiL 625 MG TABLET PO (09:21)
[2021-03-06] MEDS: MICONAZOLE NITRATE 2% CREAM 30 GM TUBE 1 APPLIC TOPICAL ×2 (09:22→17:19)
--- NOTE | 2021-03-06 12:06 | PM.IMPN ---
Progress Note: A&P Assessment and Plan (1) Pneumonia: Qualifiers: Laterality: bilateral Lung location: unspecified part of lung Pneumonia type: due to unspecified organism Qualified Code(s): J18.9 - Pneumonia, unspecified organism Code(s): J18.9 - Pneumonia, unspecified organism Status: Acute Assessment and Plan: Patient is 75-year-old woman with a history anemia, hypertension, dyslipidemia, who presented to the emergency room for fatigue, shortness of breath and cough for the last 3 weeks, gradually worsening. She was given outpatient antibiotics without any improvement of her symptoms. Initial vitals showed blood pressure 109/77, heart rate 59 beats per minute, afebrile, 98% on room air. Initial labs showed normal CBC with differential, normal coag panel, creatinine 1.3, BUN 37 which appears to be her baseline. Normal LFTs. Normal urinalysis. Negative for influenza a and B. Negative for COVID PCR. Chest x-ray showed Chronic left basilar airspace opacity, likely combination of pleural effusion and atelectasis. Patchy bilateral airspace opacities, likely pneumonia. Patient was admitted to the hospital for pneumonia and started on IV Zosyn. During patient's hospitalization a repeat chest x-ray was completed showing Nodular density right mid thorax. Correlation with chest CT recommended to exclude parenchymal nodule. CT chest without contrast was completed showing Small to moderate left pleural effusion with multisegmental left lower lobe atelectasis. Stable right upper lobe, right lower lobe nodules up to about 2 cm. Consider cryptogenic organizing pneumonia, isoechoic pneumonia, hypersensitivity pneumonitis, post COVID lung disease. Slow-growing malignancy not entirely excludable. Cardiomegaly. Mild emphysema. Blood cultures are negative to date. Sputum culture was sent but was not performed and unacceptable for culture. Patient does report improvement of her breathing and cough today. IV Zosyn day #4. I did talk to the hand bunch maker who was consulted due to her abnormal CT scan of her chest. Dr. Maldonado states she is going to see the patient today. Continue monitoring breathing and appreciate pulmonology input. (2) Anxiety disorder: Code(s): F41.9 - Anxiety disorder, unspecified Status: Chronic Assessment and Plan: Continue with clonazepam (3) Ataxia: Code(s): R27.0 - Ataxia, unspecified Status: Chronic Assessment and Plan: The patient's sees a neurologist outpatient for this. MRI brain showed mild age-related intracranial findings. Continue Physical therapy here. She will need to follow-up with her neurologist for further evaluation after discharge. (4) Hyperlipidemia: Qualifiers: Hyperlipidemia type: unspecified Qualified Code(s): E78.5 - Hyperlipidemia, unspecified Code(s): E78.5 - Hyperlipidemia, unspecified Status: Chronic Assessment and Plan: Continue with pravastatin. (5) Hypotension: Qualifiers: Hypotension type: neurogenic orthostatic hypotension Qualified Code(s): G90.3 - Multi-system degeneration of the autonomic nervous system Code(s): I95.9 - Hypotension, unspecified Status: Acute Assessment and Plan: Patient's blood pressure 157/75 this morning. Continue with home medications and midodrine. Make adjustments if needed. Time Spent With Patient Time with patient: 25 - 35 minutes Subjective Date/time seen: 03/06/21 12:06 Interval history: Date of Service 03/06/21: The patient states she is feeling better today with her breathing, only mild cough today, nonproductive. She also reports abdominal distension and constipation for the last 3 da
[2021-03-06 13:40] VITALS: BP 155/78; PULSE 61; RESP 14; TEMP 36.6; O2SAT 97
[2021-03-06] MEDS: polyethylene glycoL 3350 17 GM POWD.PACK PO ×2 (13:41→17:18)
--- NOTE | 2021-03-06 15:21 | PCPTNOTE ---
The patient treatment was not able to be completed on 03/06 due to having a test done. Will plan to continue treatment per plan of care.
[2021-03-06] MEDS: SACCHAROMYCES BOULARDII 250 MG CAPSULE PO (17:19)
[2021-03-06 18:25] VITALS: BP 164/59; PULSE 74
[2021-03-06 18:30] VITALS: BP 179/71; PULSE 70
--- NOTE | 2021-03-06 19:09 | PM.CNPUL ---
Assessment and Plan Assessment and plan (1) Pneumonia: Qualifiers: Laterality: bilateral Lung location: unspecified part of lung Pneumonia type: due to unspecified organism Qualified Code(s): J18.9 - Pneumonia, unspecified organism Code(s): J18.9 - Pneumonia, unspecified organism Status: Acute Assessment and Plan: This patient has bilateral infiltrates and atelectasis as well as bilateral effusions, left greater than right. She does not have typical symptoms such as fever, chills, productive cough and she does not have an oxygen deficit. She has abdominal distention and CT evidence of enterocolitis which may be responsible for causing a sympathetic pleural effusion. I spoke with Laura Guillen PA-C about a thoracentesis to decide if the fluid is a parapneumonic effusion. She has been on Zosyn since Mar 02, 5 days now. 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 She has no prior history of pneumonia or lung disease. She has pancytopenia, has had platelet studies and SPEP per Dr Logan. PLAN: Left thoracentesis with diagnostic labs, expand coverage, check urine antigens for pneumococcal and Legionella. She has no sputum to evaluate. She has a right sided density that has been present on a CT since the summer, and this can have further investigations after discharge. She does not give a history of exposure to moldy areas, moist environment, animals, feathers or anything that was suggest hypersensitivity pneumonitis. (2) Pleural effusion: Code(s): J90 - Pleural effusion, not elsewhere classified Status: Acute Assessment and Plan: see above (3) Multiple pulmonary nodules determined by computed tomography of lung: Code(s): R91.8 - Other nonspecific abnormal finding of lung field Status: Acute Assessment and Plan: Chest CT this admission: Stable right upper lobe, right lower lobe nodules up to about 2 cm. Consider cryptogenic organizing pneumonia, hypersensitivity pneumonitis, post COVID lung disease. Slow-growing malignancy not entirely excludable. These areas were present on a prior scan last summer. The area in the right side on the CT is the spot of concern. History of Present Illness History of Present Illness Consult date: 03/07/21 Requesting physician: Laura Kaur PA-C Chief complaint: pneumonia Narrative: Patient was seen 03/07/2021 morning reason for consult: shortness of breath, bilateral infiltrates, L>R pleural effusion, right lung density NEW CONSULT: Ana Stewart is a 75 year old female with no underlying pulmonary issues. She is a never smoker, had no occupational exposure. She was exposed to second hand smoke from her for 30 years, none for the last 25 years. 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 She is followed by neurologist at [facility], take clonazepam for the eye symptoms, otherwise she is dizzy and nauseated. She does not have much memory for the events leading up to this admission. She has dysphagia, recently had endoscopy with dilation by Dr Mcmullen. Dysphagia is worse with meat, chicken and breads, so she avoids these. She has no problems taking her pills. Sometimes she wakes at night with with sudden shortness of breath that is better when she sits up. She has a hoarse voice at times. She has mild shortness of breath since being Covid a year ago. She reports distant history of esophageal dilations many many years ago. DR Mcmullen Performed a balloon dilation of an esophageal stricture and biopsy showed chronic esophagitis. She
[2021-03-06 19:50] VITALS: PULSE 70; RESP 14; O2SAT 97
[2021-03-06 22:00] VITALS: BP 174/64; PULSE 63; RESP 16; TEMP 36.4; O2SAT 98
[2021-03-06] MEDS: AMOXICILLIN/CLAVULANATE K 875-125 MG TAB 1 TABLET PO (22:44)
[2021-03-06] MEDS: traZODone HCL 50 MG TABLET PO (22:45)
[2021-03-07] VITALS (7 sets, daily range): BP systolic 138–185; BP diastolic 70–103; PULSE 61–77; RESP 16–19; TEMP 36.7–37.1; O2SAT 93–99
[2021-03-07 05:18] LABS: Hematocrit 36.3 % (37.0-47.0); Hemoglobin 12.1 g/dL (12.0-15.0); Mean Corpuscular HGB Conc 33.3 g/dl (32-36); Mean Corpuscular Hemoglobin 29.5 pg (26-34); Mean Corpuscular Volume 88.5 fl (80-100); Mean Platelet Volume 9.2 fl (7.4-10.4); Platelet Count Result 140 k/mm3 (150-375); Red Cell Distribution Width 14.2 % (11.5-14.5)
[2021-03-07 05:43] LABS: Anion Gap 7 mmol/L (8-16); Blood Urea Nitrogen 16 mg/dL (7-17); CRP 0.7 mg/dL (<1.0); Carbon Dioxide 28 mmol/L (22-30); Chloride 104 mmol/L (98-107); Estimated CRCL calculation 50 ml/min; Estimated Glomerular Filt Rate > 60; Glucose 111 mg/dL (65-110); Lactate Dehydrogenase 303 U/L (313-618); Potassium 3.5 mmol/L (3.4-5.0); Sodium 139 mmol/L (137-145)
[2021-03-07] MEDS: LINACLOTIDE 145 MCG CAPSULE PO (07:51)
[2021-03-07] MEDS: FLUDROCORTISONE ACETATE 0.1 MG TABLET PO (09:20)
[2021-03-07] MEDS: POTASSIUM CHLORIDE 20 MEQ TABLET 40 MEQ PO (09:20)
[2021-03-07] MEDS: calcium polycarbophiL 625 MG TABLET PO (09:21)
[2021-03-07] MEDS: NITROFURANTOIN MACROCRYSTALS 50 MG CAP PO (09:21)
[2021-03-07] MEDS: AMOXICILLIN/CLAVULANATE K 875-125 MG TAB 1 TABLET PO ×2 (09:21→22:15)
[2021-03-07] MEDS: PANTOPRAZOLE 40 MG TABLET PO ×2 (09:22→17:38)
[2021-03-07] MEDS: GABAPENTIN 300 MG CAPSULE PO ×2 (09:22→17:38)
[2021-03-07] MEDS: MIRABEGRON 25 MG ER TABLET PO (09:22)
[2021-03-07] MEDS: PRAVASTATIN SODIUM 20 MG TABLET PO (09:23)
[2021-03-07] MEDS: SACCHAROMYCES BOULARDII 250 MG CAPSULE PO ×2 (09:23→17:39)
[2021-03-07] MEDS: MICONAZOLE NITRATE 2% CREAM 30 GM TUBE 1 APPLIC TOPICAL ×2 (09:38→17:39)
--- NOTE | 2021-03-07 10:25 | PCOTNOTE ---
Attempted to see patient this am, however patient declined due to severe nausea. Anytime I move I feel like I'm gonna...(Patient gestured puffing cheeks out.) Noted patient having abnormal involuntary eye movements at this time. Questioned patient about history of seizure activity. Pt replied she typically feels sick and passes out and she calls them Episodes. Pt reported having eyes go back and forth and feeling really nauseated when she doesn't get a specific medication. Notified patient about eye movement occurring at this time of conversation. Pt stated, Oh, it's doing it now? The medication is supposed to help with that. It's like a staple. I take it everyday, and when I don't it will get bad. Have I had it today? Notified RN to follow up on patient concerns. Pt not seen for this reason.
[2021-03-07] MEDS: clonazePAM (*CRX) 0.5 MG TABLET 1 MG PO (11:01)
--- NOTE | 2021-03-07 12:03 | PC.NURSE ---
To ultrasound via stretcher, for thoracentesis.
--- NOTE | 2021-03-07 12:59 | PC.NURSE ---
Return from ultrasound per stretcher, bandaid to Left posterior back CDI.
[2021-03-07 14:06] LABS: Pleural fluid source Pleural fluid
[2021-03-07 14:07] LABS: Appearance Pleural Fluid Hazy (Clear); Color Pleural Fluid Yellow (Colorless); Lymphocytes Pleural Fluid 77 %; Macrophages Pleural Fluid 4 %; Monocytes Pleural Fluid 8 %; Neutrophils Pleural Fluid 7 % (0-25)
[2021-03-07 14:08] LABS: Mesothelial Cells Pleural Flui 4 %
--- NOTE | 2021-03-07 14:39 | PM.IMPN ---
Progress Note: A&P Assessment and Plan (1) Pneumonia: Qualifiers: Laterality: bilateral Lung location: unspecified part of lung Pneumonia type: due to unspecified organism Qualified Code(s): J18.9 - Pneumonia, unspecified organism Code(s): J18.9 - Pneumonia, unspecified organism Status: Acute Assessment and Plan: Patient is 75-year-old woman with a history of brain stem issue, anemia, hypertension, dyslipidemia, who presented to the emergency room for fatigue, shortness of breath and cough for the last 3 weeks, gradually worsening. She was given outpatient antibiotics without any improvement of her symptoms. Initial vitals showed blood pressure 109/77, heart rate 59 beats per minute, afebrile, 98% on room air. Initial labs showed normal CBC with differential, normal coag panel, creatinine 1.3, BUN 37 which appears to be her baseline. Normal LFTs. Normal urinalysis. Negative for influenza a and B. Negative for COVID PCR. Chest x-ray showed Chronic left basilar airspace opacity, likely combination of pleural effusion and atelectasis. Patchy bilateral airspace opacities, likely pneumonia. Patient was admitted to the hospital for pneumonia and started on IV Zosyn. During patient's hospitalization a repeat chest x-ray was completed showing Nodular density right mid thorax. Correlation with chest CT recommended to exclude parenchymal nodule. CT chest without contrast was completed showing Small to moderate left pleural effusion with multisegmental left lower lobe atelectasis. Stable right upper lobe, right lower lobe nodules up to about 2 cm. Consider cryptogenic organizing pneumonia, isoechoic pneumonia, hypersensitivity pneumonitis, post COVID lung disease. Slow-growing malignancy not entirely excludable. Cardiomegaly. Mild emphysema. Blood cultures are negative to date. Sputum culture was sent but was not performed and unacceptable for culture. Patient does report improvement of her breathing and cough today. IV Zosyn day #4, patient lost IV access so we switch her to oral Augmentin I did talk to the pediatric speech therapist who was consulted due to her abnormal CT scan of her chest. Dr. Maldonado evaluated the patient and we had discussed performing a left thoracentesis with diagnostic labs which could be causing some of her shortness of breath. Also will check urine antigens pneumococcal and Legionella. Patient's right-sided density on CT scan will further be evaluated outpatient. Continue monitoring breathing and appreciate pulmonology input. (2) Anxiety disorder: Code(s): F41.9 - Anxiety disorder, unspecified Status: Chronic Assessment and Plan: Continue with clonazepam daily scheduled (3) Ataxia: Code(s): R27.0 - Ataxia, unspecified Status: Chronic Assessment and Plan: The patient's sees a neurologist outpatient for this. MRI brain showed mild age-related intracranial findings. Continue Physical therapy here. She will need to follow-up with her neurologist for further evaluation after discharge. (4) Hyperlipidemia: Qualifiers: Hyperlipidemia type: unspecified Qualified Code(s): E78.5 - Hyperlipidemia, unspecified Code(s): E78.5 - Hyperlipidemia, unspecified Status: Chronic Assessment and Plan: Continue with pravastatin. (5) Hypotension: Qualifiers: Hypotension type: neurogenic orthostatic hypotension Qualified Code(s): G90.3 - Multi-system degeneration of the autonomic nervous system Code(s): I95.9 - Hypotension, unspecified Status: Acute Assessment and Plan: Patient's blood pressure is elevated 138/76 this morning. Continue with home medications and midodrine. Make adjustments if needed.
[2021-03-07] MEDS: traZODone HCL 50 MG TABLET PO (22:15)
[2021-03-08 05:43] VITALS: BP 160/72; PULSE 60; RESP 18; TEMP 36.6; O2SAT 98
[2021-03-08 06:40] LABS: Hematocrit 38.4 % (37.0-47.0); Hemoglobin 12.5 g/dL (12.0-15.0); Mean Corpuscular HGB Conc 32.6 g/dl (32-36); Mean Corpuscular Hemoglobin 29.2 pg (26-34); Mean Corpuscular Volume 89.7 fl (80-100); Mean Platelet Volume 10.4 fl (7.4-10.4); Platelet Count Result 122 k/mm3 (150-375); Red Blood Count 4.28 M/mm3 (4.2-5.4); Red Cell Distribution Width 14.5 % (11.5-14.5); White Blood Count 3.4 K/mm3 (4.5-10.0)
[2021-03-08 08:00] VITALS: BP 145/72; PULSE 68; RESP 18; TEMP 36.6; O2SAT 95
[2021-03-08 08:02] LABS: Anion Gap 8 mmol/L (8-16); Blood Urea Nitrogen 16 mg/dL (7-17); Calcium 9.2 mg/dL (8.4-10.2); Carbon Dioxide 26 mmol/L (22-30); Chloride 103 mmol/L (98-107); Estimated CRCL calculation 44 ml/min; Estimated Glomerular Filt Rate > 60; Glucose 120 mg/dL (65-110); Potassium 3.8 mmol/L (3.4-5.0); Sodium 137 mmol/L (137-145)
[2021-03-08 08:16] VITALS: BP 147/85; PULSE 96
[2021-03-08] MEDS: MIRABEGRON 25 MG ER TABLET PO (08:17)
[2021-03-08] MEDS: GABAPENTIN 300 MG CAPSULE PO ×3 (08:17→16:48)
[2021-03-08] MEDS: clonazePAM (*CRX) 0.5 MG TABLET 1 MG PO (08:17)
[2021-03-08] MEDS: PRAVASTATIN SODIUM 20 MG TABLET PO (08:17)
[2021-03-08] MEDS: FLUDROCORTISONE ACETATE 0.1 MG TABLET PO (08:17)
[2021-03-08] MEDS: AMOXICILLIN/CLAVULANATE K 875-125 MG TAB 1 TABLET PO (08:17)
[2021-03-08] MEDS: SACCHAROMYCES BOULARDII 250 MG CAPSULE PO ×2 (08:18→16:48)
[2021-03-08] MEDS: MICONAZOLE NITRATE 2% CREAM 30 GM TUBE 1 APPLIC TOPICAL ×2 (08:18→16:48)
[2021-03-08] MEDS: NITROFURANTOIN MACROCRYSTALS 50 MG CAP PO (08:18)
[2021-03-08] MEDS: PANTOPRAZOLE 40 MG TABLET PO ×2 (08:18→16:48)
[2021-03-08] MEDS: calcium polycarbophiL 625 MG TABLET PO (08:18)
[2021-03-08 14:05] VITALS: BP 148/58; PULSE 64; RESP 20; TEMP 36.3; O2SAT 96
--- NOTE | 2021-03-08 15:16 | PM.PNPUL ---
Progress Note: A&P Assessment and Plan (1) Pneumonia: Qualifiers: Laterality: bilateral Lung location: unspecified part of lung Pneumonia type: due to unspecified organism Qualified Code(s): J18.9 - Pneumonia, unspecified organism Code(s): J18.9 - Pneumonia, unspecified organism Status: Acute Assessment and Plan: This patient has bilateral infiltrates and atelectasis as well as bilateral effusions, left greater than right. She does not have typical symptoms such as fever, chills, productive cough and she does not have an oxygen deficit. She has abdominal distention and CT evidence of enterocolitis which may be responsible for causing a sympathetic pleural effusion. I spoke with Laura Guillen PA-C about a thoracentesis to decide if the fluid is a parapneumonic effusion. She has been on Zosyn changed to Augmentin 2 days ago when she lost IV access. 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 She has no prior history of pneumonia or lung disease. She has pancytopenia, has had platelet studies and SPEP per Dr Logan. She had a left thoracentesis with diagnostic labs, does not have sputum to evaluate. She will need f/u for Right sided density since summer 2020. PLAN: d/w Laura Kaur. * The patient is stable for discharge, continue Augmentin. * She should call Dr Mcmullen about the enterocolitis on her CT scan. She had constipation on admission, started on Miralax. She says that she was told she needs some type of swallow testing, and this information was from her GI doctor. * f/u pulmonary visit 1-3 weeks, consider Virtual Visit as she lives in Assisted Living, cannot stand up due to MSA and need for wheelchair, and it will be a huge hassle to get her to the office * No O2 needed * repeat CT chest in 6 months for R lung density * further pneumonia w/u as outpatient if this does not resolve (2) Pleural effusion: Code(s): J90 - Pleural effusion, not elsewhere classified Status: Acute Assessment and Plan: see above, pH > 7.5, diff - 77% lymphocytes. No wbc or rbc available and all the other chemistries are pending. Sent out to [place]. (3) Multiple pulmonary nodules determined by computed tomography of lung: Code(s): R91.8 - Other nonspecific abnormal finding of lung field Status: Acute Assessment and Plan: Chest CT this admission: Stable right upper lobe, right lower lobe nodules up to about 2 cm. Consider cryptogenic organizing pneumonia, hypersensitivity pneumonitis, post COVID lung disease. Slow-growing malignancy not entirely excludable. These areas were present on a prior scan last summer. The area in the right side on the CT is the spot of concern. Will need f/u CT and pulmonary visit for the pleural fluid results that were sent out, [place]. May take several more days. Subjective Date/time seen: 03/08/21 15:16 She had the thoracentesis yesterday, pH > 7.5, so not an empyema. Diff shows 77% lymphocytes, could not do cell count unfortunately. She is feeling better and is on room air. There is no barrier to discharge and I can follow up in the pulmonary clinic. She has no underlying pulmonary issues. She is a never smoker, had no occupational exposure. She was exposed to second hand smoke from her for 30 years, none for the last 25 years. She now lives in Assisted Living at [facility] in [place]. 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 She is followed by neurologist at [facility], take clonazepam for the eye symptoms, otherwise she is dizzy and nauseated. She does not have much memory for the events le
--- NOTE | 2021-03-08 15:39 | PM.DS ---
DS: Admitting Diagnosis Discharge Date 03/08/21 Admitting Diagnosis SOB DS: Discharge Diagnosis Discharge Diagnosis (1) Pneumonia: Qualifiers: Laterality: bilateral Lung location: unspecified part of lung Pneumonia type: due to unspecified organism Qualified Code(s): J18.9 - Pneumonia, unspecified organism Code(s): J18.9 - Pneumonia, unspecified organism Status: Acute Assessment and Plan: Patient is 75-year-old woman with a history of brain stem issue, anemia, hypertension, dyslipidemia, who presented to the emergency room for fatigue, shortness of breath and cough for the last 3 weeks, gradually worsening. She was given outpatient antibiotics without any improvement of her symptoms. Initial vitals showed blood pressure 109/77, heart rate 59 beats per minute, afebrile, 98% on room air. Initial labs showed normal CBC with differential, normal coag panel, creatinine 1.3, BUN 37 which appears to be her baseline. Normal LFTs. Normal urinalysis. Negative for influenza a and B. Negative for COVID PCR. Chest x-ray showed Chronic left basilar airspace opacity, likely combination of pleural effusion and atelectasis. Patchy bilateral airspace opacities, likely pneumonia. Patient was admitted to the hospital for pneumonia and started on IV Zosyn. During patient's hospitalization a repeat chest x-ray was completed showing Nodular density right mid thorax. Correlation with chest CT recommended to exclude parenchymal nodule. CT chest without contrast was completed showing Small to moderate left pleural effusion with multisegmental left lower lobe atelectasis. Stable right upper lobe, right lower lobe nodules up to about 2 cm. Consider cryptogenic organizing pneumonia, isoechoic pneumonia, hypersensitivity pneumonitis, post COVID lung disease. Slow-growing malignancy not entirely excludable. Cardiomegaly. Mild emphysema. Blood cultures are negative to date. Sputum culture was sent but was not performed and unacceptable for culture. Patient does report improvement of her breathing and cough today. IV Zosyn day #4, patient lost IV access so we switch her to oral Augmentin I did talk to the plant scientist who was consulted due to her abnormal CT scan of her chest. Dr. Maldonado evaluated the patient and we had discussed performing a left thoracentesis with diagnostic labs which could be causing some of her shortness of breath. The patient's thoracentesis labs showed a yellow, hazy appearance with a greater than 7.5 PH which show she does not have an empyema. Elevated lymphocytes at 77%, pathology evaluation showed reactive mesothelial cells and foam cells, no malignant cells and no need for flow cytometry. We are waiting on pleural fluid anaerobic and aerobic culture results, acid-fast bacilli culture, pleural total protein, LDH, glucose, triglycerides. Dr. Maldonado says she will see her in the office in the next 2 weeks and review all of these results from her pleural fluid analysis and further discuss next steps in plan. Also pending urine antigens pneumococcal and Legionella. Patient's right-sided density on CT scan will further be evaluated outpatient with pulmonology. This point time the patient is feeling better without any shortness of breath. She is resting comfortably at 96% on room air. She is stable for discharge back to assisted living facility to continue with physical and occupational therapy home health. Patient was having some diarrhea but this is most likely due to the MiraLax twice daily that was continued after her constipation was resolved. She also has intermittent constipation diarrhea issues for which I told her she has a follow-up with a GI specialist. She just had an EGD performed by Dr. Mcmullen which showed esophageal stricture that was dilated and dyskinesia of the esophagus. He recommended her to continue current medications and chew food thoroughly. Patient also states she has an outpatient test to be complete
--- NOTE | 2021-03-08 15:49 | PC.NURSE ---
On 03/08/21, the student, [Pedro Ortez], provided care and completed [facility] documentation on this patient. I have reviewed the student's documentation and agree with the findings.
[2021-03-08 15:57] LABS: EDCOVIDSCREEN Negative (Negative)
[2021-03-09 18:12] LABS: Glucose Pleural Fluid 118 mg/dL; LDH Pleural Fluid 128 U/L; Total Protein Pleural Fluid 4.1 g/dL
== END 2021-03-08 17:00 | DRG 194 ==
LOC: ANHED 17:18 → ANH2MED 19:02
PROVIDERS: Family Medicine; Internal Medicine; Internal Medicine Critical Care Medicine; Physician Assistant; Admitting Provider Internal Medicine; Emergency Provider Emergency Medicine; PCP Family Medicine; Visit Provider Physician Assistant
DX: J18.9 Pneumonia, unspecified organism (principal); D61.818 Other pancytopenia; G90.3 Multi-system degeneration of the autonomic nervous system; J90 Pleural effusion, not elsewhere classified; J98.11 Atelectasis; Z20.822 Contact with and (suspected) exposure to COVID-19; F41.9 Anxiety disorder, unspecified; R27.0 Ataxia, unspecified; R91.8 Other nonspecific abnormal finding of lung field; E78.5 Hyperlipidemia, unspecified; K52.9 Noninfective gastroenteritis and colitis, unspecified; Z86.16 Personal history of COVID-19; R13.10 Dysphagia, unspecified; K21.9 Gastro-esophageal reflux disease without esophagitis; E50.9 Vitamin A deficiency, unspecified; D64.9 Anemia, unspecified; I95.9 Hypotension, unspecified; K59.00 Constipation, unspecified; Z66 Do not resuscitate; Z98.42 Cataract extraction status, left eye; Z98.41 Cataract extraction status, right eye; Z90.49 Acquired absence of other specified parts of digestive tract; Z86.718 Personal history of other venous thrombosis and embolism; Z99.3 Dependence on wheelchair
CPT/HCPCS: 32555; 36415; 51701; 70551; 71045; 71046; 71250; 74176; 80048; 80053; 81001; 82728; 82945; 83605; 83615; 83735; 83986; 84157; 84478; 85025; 85027; 85610; 85730; 86140; 87015; 87040; 87070; 87075; 87116; 87205; 87206; 87426; 87502; 89051; 93005; 93306; 96365; 96366; 96372; 96375; 96376; 97110; 97162; 97165; 97535; 99285; A9270; C9803; G0378; J1650; J2405; J2543; U0003; U0005

== ENCOUNTER 2021-06-19 17:05 | Outpatient (CLI) | payer OTHER, SELFPAY ==
--- NOTE | ~2021-06-19 | XR_ITS ---
EXAM: XR abdomen/kub 1V HISTORY: K59.00 - Constipation, LAST BM 1 WEEK AGO COMPARISON: 02/01/2013 FINDINGS: Normal bowel gas pattern. The rectum is mildly dilated up to 6.0 cm by formed stool. No or ganomegaly. Vascular calcifications. Injection granulomas. Regional bones and soft tissues normal for age. IMPRESSION: No radiographic evidence of obstruction or ileus. Possible mild fecal impaction. Reviewed, dictated and finalized at location K. IMPRESSION: No radiographic evidence of obstruction or ileus. Possible mild fecal impaction .
== END 2021-06-19 17:06 | disposition home or self-care (01) ==
LOC: ANHIMG 17:07
PROVIDERS: PCP Family Medicine; Visit Provider Nurse Practitioner Family
DX: K59.00 Constipation, unspecified (principal)
CPT/HCPCS: 74018

== ENCOUNTER 2021-09-03 13:58 | Inpatient (IN) | payer OTHER, SELFPAY ==
[2021-09-03] VITALS (7 sets, daily range): BP systolic 119–195; BP diastolic 60–78; PULSE 57–63; RESP 16–19; TEMP 36.1–36.2; O2SAT 95–98
--- NOTE | ~2021-09-03 | CT_ITS ---
EXAMINATION: CT brain wo con DATE: 09/03/2021 17:51 INDICATION: weakness . TECHNIQUE: Computed tomography (CT) of the head was performed without intravenous contrast. The mA wa s adjusted according to patient size. Iterative reconstruction technique was employed. The dose-lengt h product was 605.33 mGy-cm. COMPARISON: 07/19/2020. FINDINGS: No acute intracranial hemorrhage or extra-axial fluid collection. No hydrocephalus, mass, or herniation. No acute ischemic infarct. Unremarkable dural venous sinus attenuation. No acute osseous abnormality. The aerated spaces are clear. Prominent bifrontal extra-axial spaces. Mild atrophy and chronic white matter change. Left lens repla cement. Atherosclerotic intracranial calcification. Left temporal osteoma. IMPRESSION: No acute intracranial process. Reviewed, dictated and finalized at location K.
--- NOTE | ~2021-09-03 | XR_ITS ---
EXAMINATION: XR abdomen/kub 1V DATE: 09/03/2021 17:12 INDICATION: Constipation. Abdominal pain. TECHNIQUE: A supine view of the abdomen on 2 radiographs was obtained. COMPARISON: CT abdomen and pelvis 03/06/2021 FINDINGS: There are no dilated loops of bowel. There is a large volume of stool in the colon. The sma ll bowel is normal in caliber. Surgical clips in the right upper quadrant are likely from cholecystec chandana. There is a small left pleural effusion. There are airspace opacities at left lung base. IMPRESSION: 1. Large volume of stool in the colon. 2. Small left pleural effusion. 3. Airspace opacities at left lung base, consistent with atelectasis versus pneumonia. Reviewed, dictated and finalized at location A. IMPRESSION: 1. Large volume of stool in the colon. 2. Small left pleural effusion. 3. Airspace opacities at left lung base, consistent with atelectasis versus pne umonia.
--- NOTE | ~2021-09-03 | XR_ITS ---
EXAMINATION: XR abdomen/kub 1V DATE: 09/06/2021 05:59 INDICATION: Constipation TECHNIQUE: A supine view of the abdomen was obtained. COMPARISON: CT dated 09/03/2021 FINDINGS: Moderate to large amount of stool scattered throughout the colon. Small amount of gas within a few sc attered nondilated loops of small bowel. Cholecystectomy clips in right upper quadrant. Moderate thor acolumbar spondylosis. IMPRESSION: 1. Nonobstructive bowel gas pattern with moderate to large amount of colonic stool. Reviewed, dictated and finalized at location A. IMPRESSION: 1. Nonobstructive bowel gas pattern with moderate to large amount of colonic st ool.
--- NOTE | ~2021-09-03 | CT_ITS ---
EXAMINATION: CT chest abdomen pelvis wo con DATE: 09/03/2021 17:51 INDICATION: pleural effusion, cough, abd pain, nausea . TECHNIQUE: Computed tomography (CT) of the chest, abdomen, and pelvis was performed without intraveno us contrast. Automated exposure control and iterative reconstruction technique were employed. The dos e-length product was 1451.52 mGy-cm. COMPARISON: None FINDINGS: Thoracic aorta: Mild ectasia and arch calcification.. Lung parenchyma and airways: Dependent and pleural-based rounded and irregular segmental and subsegme ntal opacities in the bilateral upper and lower lobes. Thoracic inlet, axillae and chest wall: No thyroid or soft tissue mass. No axillary lymphadenopathy. Mediastinum: No mass or lymphadenopathy. Heart and pericardium: Normal heart size. Small volume pericardial effusion. Coronary artery calcifications: Mild. Pleura: Small volume left pleural fluid. Thoracic bones: No acute osseous finding in the chest. ABDOMEN/PELVIS: Liver: Left lobe cyst. Biliary/Gallbladder: Gallbladder is absent. No bile duct dilation. Pancreas: No mass or duct dilation. Spleen: Enlarged. Adrenals:No mass. Kidneys: Left renal scarring. Punctate nonobstructive right calculus. GI tract: No small or large bowel dilation. Normal appendix. Mesentery/Peritoneum: No ascites, mass, or free air. Retroperitoneum: No mass. Atherosclerotic calcification. Pelvis: Uterus is absent. Bladder wall thickening with surrounding inflammatory change. Soft Tissues: Soft tissues and body wall unremarkable. Abdominopelvic bones: No acute osseous finding in the abdomen/pelvis. IMPRESSION: Pulmonary opacities may reflect multifocal pneumonia or dependent and rounded atelectasis. This findi ng should be followed after appropriate therapy to ensure resolution. Small left pleural effusion. Sm all pericardial effusion. Splenomegaly. Possible cystitis. Reviewed, dictated and finalized at location K. IMPRESSION: Pulmonary opacities may reflect multifocal pneumonia or dependent and rounded a telectasis. This finding should be followed after appropriate therapy to ensure resolution. Small left pleural effusion. Small pericardial effusion. Splenomeg eloy. Possible cystitis.
--- NOTE | ~2021-09-03 | XR_ITS ---
EXAMINATION: XR chest 2V DATE: 09/03/2021 12:24 INDICATION: Generalized weakness. TECHNIQUE: Frontal and lateral views of the chest were obtained. COMPARISON: Chest single view 03/07/2021, 07/19/20 FINDINGS: There is a nodule in right midlung zone. There are airspace opacities at left lung base. Th ere is a small left pleural effusion. No pneumothorax. The heart size is normal. IMPRESSION: 1. Small left pleural effusion, worsened from 03/07/2021. 2. Worsened airspace opacities at left lung base, consistent with atelectasis versus pneumonia. 3. Nodule in right midlung zone, stable from 07/19/2020, which may be infection/scarring or less likely malignancy. Consider noncontrast chest CT. Reviewed, dictated and finalized at location A. IMPRESSION: 1. Small left pleural effusion, worsened from 03/07/2021. 2. Worsened airspace opacities at left lung base, consistent with atelectasis v ersus pneumonia. 3. Nodule in right midlung zone, stable from 07/19/2020, which may be infection/s carring or less likely malignancy. Consider noncontrast chest CT.
--- NOTE | 2021-09-03 11:34 | ECG_ITS ---
Measurements Intervals [place] Rate: 60 P: 16 OK: 175 QRS: 31 QRSD: 86 T: 39 QT: 449 QTc: 451 Interpretive Statements SINUS RHYTHM BORDERLINE T WAVE ABNORMALITY- ANTERIOR LEADS BASELINE ARTIFACT- I, II, AVR, V3 BORDERLINE ECG Electronically Signed On 09-03-2021 12:02:29 CDT by Nnamdi Liu D.O.
[2021-09-03 12:01] LABS: Basophils Percent Auto 0.6 % (0.2-1.2); Eosinophils Absolute Auto 0.1 K/mm3 (0-0.3); Eosinophils Percent Auto 4.1 % (0-4.4); Hematocrit 36.7 % (37.0-47.0); Hemoglobin 11.9 g/dL (12.0-15.0); Immature Granulocyte Absolute 0.01 K/mm3 (0.00-0.031); Immature Granulocyte Percent A 0.3 % (0-0.5); Lymphocytes Absolute Auto 0.61 K/mm3 (0.9-3.2); Lymphocytes Percent Auto 17.8 % (18.3-44.2); Mean Corpuscular HGB Conc 32.4 g/dl (32-36); Mean Corpuscular Hemoglobin 28.5 pg (26-34); Mean Platelet Volume 8.8 fl (7.4-10.4); Monocytes Absolute Auto 0.4 K/mm3 (0.1-0.6); Monocytes Percent Auto 10.5 % (2.6-8.5); Neutrophils Absolute Auto 2.3 K/mm3 (1.3-6.7); Neutrophils Percent Auto 66.7 % (45.5-73.1); Platelet Count Result 162 k/mm3 (150-375); Red Blood Count 4.17 M/mm3 (4.2-5.4); Red Cell Distribution Width 14.9 % (11.5-14.5); White Blood Count 3.4 K/mm3 (4.5-10.0)
[2021-09-03 12:10] LABS: Alanine Aminotransferase 14 U/L (6-35); Albumin Level 3.7 g/dL (3.5-5.1); Alkaline Phosphatase 104 U/L (38-126); Anion Gap 5 mmol/L (8-16); Aspartate Amino Transferase 23 U/L (14-36); Bilirubin,Total 0.9 mg/dL (0.2-1.3); Blood Urea Nitrogen 16 mg/dL (7-17); Calcium 8.7 mg/dL (8.4-10.2); Carbon Dioxide 29 mmol/L (22-30); Chloride 105 mmol/L (98-107); Estimated CRCL calculation 49 ml/min; Estimated Glomerular Filt Rate > 60; Glucose 111 mg/dL (65-110); Potassium 3.8 mmol/L (3.4-5.0); Sodium 139 mmol/L (137-145)
[2021-09-03 14:07] LABS: Appearance Urine Clear (Clear); Bilirubin Urine Negative (Negative); Blood Urine Trace-lysed (Negative); Color Urine Yellow (Yellow); Glucose Urine UA Negative (Negative); Ketones Urine Negative (Negative); Leukocyte Esterase Ur 1+ LEU/UL (Negative); Nitrate Urine Negative (Negative); Protein Urine Negative (Negative); Urobilinogen Urine 0.2 mg/dL (<2.0); pH Urine 7.5 (5.0-9.0)
[2021-09-03 14:13] LABS: Mucus Urine Rare /lpf; Squamous Epithelial Cell Urine Rare /hpf (Few)
[2021-09-03 14:14] LABS: Add Urine Microscopic? YES
[2021-09-03 17:17] LABS: Lipase 61 U/L (23-300)
--- NOTE | 2021-09-03 17:35 | ED.WEAKNESS ---
HPI - Weakness General Chief complaint: Weakness <Sierra Adamson PA-C - Last Filed: 09/03/21 20:31> Stated complaint: general weakness x 2 weeks <MARTA Pendleton Last Filed: 09/03/21 20:31> Time Seen by Provider: 09/03/21 17:01 <Sierra Adamson PA-C - Last Filed: 09/03/21 20:31> Source: patient and family <MARTA Pendleton Last Filed: 09/03/21 20:31> Mode of arrival: EMS <MARTA Pendleton Last Filed: 09/03/21 20:31> Limitations: no limitations <MARTA Pendleton Last Filed: 09/03/21 20:31> History of Present Illness HPI Narrative: This is a 75-year-old female that presents to the emergency department for lower extremity weakness. Ongoing over the last couple of weeks. Reports her legs feel heavy and weak. No recent falls or injuries. Denies any back pain. Also reports she has had abdominal pain and nausea. She has not had a BM in about 5 days. Reports some shortness of breath and a cough. Denies fever, vomiting, or dysuria. <Sierra Adamson PA-C - Last Filed: 09/03/21 20:31> Related Data Home medications: Home Medications Medication Instructions Recorded Confirmed ergocalciferol (vitamin D2) 50,000 50,000 unit PO WEEKLY 02/16/19 07/23/21 unit tablet fluticasone propionate 50 2 spray intranasal DAILY PRN 02/16/19 07/23/21 mcg/actuation nasal Allergy Symptoms spray,suspension (Flonase Allergy Relief) omeprazole 20 mg capsule,delayed 40 mg PO DAILY 02/16/19 07/23/21 release pravastatin 20 mg tablet 20 mg PO DAILY 02/16/19 07/23/21 trazodone 50 mg tablet 50 mg PO HS 05/25/19 07/23/21 gabapentin 300 mg capsule 300 mg PO TID 02/15/20 07/23/21 mirabegron 25 mg tablet,extended 25 mg PO DAILY 02/15/20 07/23/21 release 24 hr (Myrbetriq) tramadol 50 mg tablet 50 mg PO Q6-8H PRN Pain 02/15/20 07/23/21 Fiber-Tabs 625 mg PO DAILY 07/19/20 07/23/21 benzonatate 200 mg capsule 200 mg PO TID PRN Cough 03/02/21 07/23/21 midodrine 2.5 mg tablet 5 mg PO DAILY 03/02/21 07/23/21 <Sierra Adamson PA-C - Last Filed: 09/03/21 20:31> Allergies/Adverse reactions: Allergies Allergy/AdvReac Type Severity Reaction Status Date / Time adhesive Allergy Unknown BLISTERS Verified 07/23/21 13:59 Iodinated Contrast Media Allergy Unknown Swelling Verified 07/23/21 13:59 <Sierra Adamson PA-C - Last Filed: 09/03/21 20:31> Review of Systems Review of Systems: CONSTITUTIONAL: Denies fever CARDIOVASCULAR: Denies chest pain, or edema. RESPIRATORY: Reports cough and dyspnea. GASTROINTESTINAL: Reports abdominal pain, nausea. Denies vomiting, or diarrhea. GENITOURINARY: Denies dysuria MUSCULOSKELETAL: Denies back pain, joint pain, or myalgia. NEUROLOGIC: Reports weakness. <Sierra Adamson PA-C - Last Filed: 09/03/21 20:31> All systems reviewed & are unremarkable except as noted in HPI and below <Sierra Adamson PA-C - Last Filed: 09/03/21 20:31> PMF Past Medical History Medical History: Medical History Acute UTI Anemia Anxiety disorder Ataxia Constipation COVID-19 virus infection DVT (deep venous thrombosis) Fracture of tibial shaft, right, closed Gastro-esophageal reflux History of heparin-induced thrombocytopenia Hyperlipidemia Hypotension Leg weakness, bilateral Seizure Tinea unguium Urinary tract infection Vitamin A deficiency Weakness Wheelchair dependence <Sierra Adamson PA-C - Last Filed: 09/03/21 20:31> Surgical History Surgical History: Surgical History H/O bilateral cataract extraction H/O: hysterectomy Hx of cholecystectomy <Sierra Adamson PA-C - Last Filed: 09/03/21 20:31> Family History Family History: Family History Sibling Patient's sister is in good health Patient's brother is in good health Mother Family history of mal
[2021-09-03] MEDS: ONDANSETRON INJ 4 MG/2 ML VIAL IV PUSH (17:49)
[2021-09-03 18:36] LABS: SARS-CoV-2 RNA PCR Negative
--- NOTE | 2021-09-03 19:24 | PM.IMHP ---
H&P: HPI History of Present Illness Date/Time: 09/03/21 19:24 Chief Complaint: Weakness. Narrative: 75-year-old female with past medical history significant for neurogenic degenerative disease of the brainstem patient is bed ridden and wheelchair-bound with bilateral lower extremity weakness, unable to standup however able to roll lives at assisted supportive living facility and was brought for evaluation for this, patient denies any fevers, any rigors, any chills no nausea, no vomiting has had diarrhea alternating with constipation. No weight loss no generalized malaise, no shortness of breath, no cough no sputum production, no pain or burning with urination, no abdominal pain. Patient was found to have infiltrates on CT of the chest. Has been admitted for further evaluation, management and treatment. Review of Systems Review of Systems: Bilateral lower extremity weakness Constitutional: Constitutional: Denies chills, Denies fatigue, Denies fever(s), Denies lethargy, Denies malaise, Denies night sweats, Denies poor appetite and Reports weakness Eyes: Eyes: Denies change in vision ENT: Denies dysphagia, Denies vertigo, Denies dizziness and Denies odynophagia Cardiovascular: Cardiovascular: Denies chest pain, Denies syncope, Denies irregular heart rhythm, Denies lightheadedness, Denies palpitations, Denies dyspnea on exertion and Denies paroxysmal nocturnal dyspnea Respiratory: Respiratory: Denies chest congestion, Denies cough, Denies excessive phlegm production, Denies dyspnea and Denies wheezing Gastrointestinal: Gastrointestinal: Denies abdominal pain, Denies dyspepsia and Denies heartburn Genitourinary: Genitourinary: Denies dysuria Musculoskeletal: Musculoskeletal: Reports muscle weakness Integumentary/Breasts: Skin/Breast: Reports rash ( intertriginous) Neurologic: Reports focal weakness and Reports weakness Psychiatric: Psychiatric: Reports no additional psychiatric complaints and Reports as per HPI Endocrine: Endocrine: Denies cold intolerance, Denies fatigue, Denies flushing, Denies heat intolerance, Denies polyphagia, Denies polydipsia and Denies palpitations Hematologic/Lymphatic: Hematologic/Lymphatic: Reports no additional hematologic/lymphatic complaints and Reports as per HPI Allergic/Immunologic: Allergic/Immunologic: Reports no additional allergic/immunologic complaints and Reports as per HPI PMF Past Medical History Medical History Acute UTI Anemia Anxiety disorder Ataxia Constipation COVID-19 virus infection DVT (deep venous thrombosis) Fracture of tibial shaft, right, closed Gastro-esophageal reflux History of heparin-induced thrombocytopenia Hyperlipidemia Hypotension Leg weakness, bilateral Seizure Tinea unguium Urinary tract infection Vitamin A deficiency Weakness Wheelchair dependence Surgical History Surgical History H/O bilateral cataract extraction H/O: hysterectomy Hx of cholecystectomy Family History Family History Sibling Patient's sister is in good health Patient's brother is in good health Mother Family history of malignant neoplasm of ovary, Onset Age: 32 Patient's mother is Father Patient's father is Acute myocardial infarction Social History Social History Social History: The patient lives home alone at the [facility] although she is . The does not live with her. The patient has 2 children. Her daughter Belkys is the durable power commercial litigation attorney for healthcare. 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 She is a lifelong nonsmoker. She does not use any alcohol marijuana illicit drugs. Code status DNR code status DNR Smoking status: Never smoker Second hand tobacco smoke exposure: No Alcoh
--- NOTE | 2021-09-03 22:07 | ADMGEN ---
This patient, Ana Stewart, was admitted to [address] [place] [address] Room 305-01. Patient/family oriented to hospital policies and general routines including ID bracelet, bed and alarms, visiting hours, pain management, procedures, bathroom and other care routines, personal items, smoking policy, room service/diet, and visiting hours. Information on how to activate the Rapid Response Team has been discussed. Patient/Family are encouraged to report perceived risks to care and to ask questions if they do not understand what they are told or what they should do.
--- NOTE | 2021-09-03 22:27 | PC.NURSE ---
09/03/212219 spoke with sayra in er who stated pt did not have a list of meds from the alf. contacted [facility] of [facility] who stated the med list was with pt. lilly faxed a copy of pt's med list.
[2021-09-03] MEDS: traZODone HCL 50 MG TABLET PO (23:56)
[2021-09-04] VITALS (9 sets, daily range): BP systolic 137–180; BP diastolic 59–80; PULSE 65–76; RESP 16–18; TEMP 36.1–36.7; O2SAT 95–97
[2021-09-04] MEDS: ALBUTEROL SULFATE NEB 2.5 MG/3 ML INH INHALATION ×3 (02:18→14:21)
[2021-09-04] MEDS: FLUDROCORTISONE ACETATE 0.1 MG TABLET PO (08:56)
[2021-09-04] MEDS: PRAVASTATIN SODIUM 20 MG TABLET PO (08:56)
[2021-09-04] MEDS: BENZONATATE 100 MG CAPSULE 200 MG PO (08:56)
[2021-09-04] MEDS: MIRABEGRON 25 MG ER TABLET PO (08:57)
[2021-09-04] MEDS: GABAPENTIN 300 MG CAPSULE PO ×3 (08:57→17:39)
[2021-09-04] MEDS: FLUTICASONE PROPIONATE 0.05% NA SPR 16 GM BTL (*BKC) 2 SPRAY NASAL (08:57)
[2021-09-04] MEDS: MIDODRINE HCL 2.5 MG TABLET 5 MG PO (08:57)
[2021-09-04] MEDS: PANTOPRAZOLE 40 MG TABLET PO (08:57)
[2021-09-04] MEDS: TOLNAFTATE 1% POWDER 45 GM BTL 1 APPLIC TOPICAL ×2 (08:57→21:37)
[2021-09-04] MEDS: clonazePAM (*CRX) 0.5 MG TABLET 1 MG PO (09:02)
--- NOTE | 2021-09-04 10:44 | PCOTNOTE ---
Alerted nurse to bed rest orders prior to mobilizing pt. Nursing agreed to update to out of bed activity. Proceeded with evaluation.
[2021-09-04 10:52] LABS: Hemoglobin 11.1 g/dL (12.0-15.0); Mean Corpuscular HGB Conc 31.7 g/dl (32-36); Mean Corpuscular Hemoglobin 28.2 pg (26-34); Mean Corpuscular Volume 89.1 fl (80-100); Mean Platelet Volume 8.3 fl (7.4-10.4); Platelet Count Result 123 k/mm3 (150-375); Red Blood Count 3.93 M/mm3 (4.2-5.4); Red Cell Distribution Width 14.8 % (11.5-14.5); White Blood Count 3.1 K/mm3 (4.5-10.0)
[2021-09-04 11:06] LABS: Anion Gap 8 mmol/L (8-16); Blood Urea Nitrogen 18 mg/dL (7-17); Calcium 8.3 mg/dL (8.4-10.2); Carbon Dioxide 27 mmol/L (22-30); Chloride 104 mmol/L (98-107); Estimated CRCL calculation 44 ml/min; Estimated Glomerular Filt Rate > 60; Glucose 230 mg/dL (65-110); Potassium 3.5 mmol/L (3.4-5.0); Sodium 139 mmol/L (137-145)
--- NOTE | 2021-09-04 15:53 | PM.IMPN ---
Progress Note: A&P Assessment and Plan (1) Pneumonia: Qualifiers: Laterality: left Lung location: lower lobe of lung Pneumonia type: due to unspecified organism Qualified Code(s): J18.9 - Pneumonia, unspecified organism Code(s): J18.9 - Pneumonia, unspecified organism Status: Acute Assessment and Plan: CXR showed left lung opacities and CT of the chest showed pulmonary opacities reflecting multifocal COVID-19 negative will check influenza continue ceftriaxone and azithromycin supportive care to include bronchodilators, expectorants, antipyretics, incentive spirometry check urinary Legionella and pneumococcal antigens attempt sputum culture collection CXR showed right lung nodule which may be due to infection/scarring. Likely due to infection. She will need follow up CT following treatment of pneumonia to ensure resolution of findings. (2) Constipation: Code(s): K59.00 - Constipation, unspecified Status: Acute Assessment and Plan: No bowel movement in 6 days abdominal x-ray showed large volume of stool in the colon CT of the abdomen/ pelvis showed no small or large bowel dilation MiraLax b.i.d., Colace b.i.d., Dulcolax suppository proceed with enema if no bowel movement with above medications (3) Gastro-esophageal reflux: Code(s): K21.9 - Gastro-esophageal reflux disease without esophagitis Status: Acute Assessment and Plan: no acute issues continue Protonix (4) Pancytopenia: Code(s): D61.818 - Other pancytopenia Status: Acute Assessment and Plan: etiology unclear review of labs suggest this to be a chronic problem, appears to be a baseline continue to monitor CBC (5) Elevated random blood glucose level: Code(s): R73.09 - Other abnormal glucose Status: Acute Assessment and Plan: blood glucose level on [facility] today was 230 check A1c recheck fasting glucose with a.m. labs tomorrow (6) 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 on wheelchair Status: Acute Assessment and Plan: secondary to neurodegenerative disease participated in PT, she was at baseline functional status fall precautions Subjective Date/time seen: 09/04/21 15:53 Interval history: date of service: 09/04/2021 Ana Huber is a wheelchair dependent 75-year-old female with a history of orthostatic hypotension, hyperlipidemia, hit, DVT, seizure disorder who is seen in follow-up for community-acquired pneumonia. she feels poorly today. She complains of shortness of breath and cough that is nonproductive of sputum. She feels that she needs to cough something up but cannot. She denies chest pain or palpitations. Denies conversational dyspnea. Denies fevers or chills. States her last bowel movement was 6 days ago. She endorses abdominal bloating and fullness. She is passing flatus. Endorses early satiety and the past 2 days has only been able to eat a few bites of each meal because she feels so full. She does admit to taking Imodium about 10 days ago and has also been taking Metamucil. She has not tried any laxatives. She denies nausea or vomiting. She is able to keep down her meals. She denies urinary symptoms. Review of Systems Review of Systems: All systems reviewed & are unremarkable except as noted in HPI and below Exam Narrative: General: Well-nourished, well-appearing 75-year-old female, sitting up in bed, comfortable, NARD Neuro: awake, alert and oriented x4, speech clear, no focal neuro deficits noted HEENMT: normocephalic, atraumatic, EOMI, sclerae anicteric Respiratory: clear to auscultation bilaterally, nonlabored breathing Cardio: regular rate, regular rhythm with S1-S2 Abdomen: protuberant, normoactive bowel sounds, soft, nontender to palpation, no rigidity or guarding Extremities: no edema, erythema, or tenderness to palpat
[2021-09-04] MEDS: polyethylene glycoL 3350 17 GM POWD.PACK PO (17:38)
[2021-09-04] MEDS: DOCUSATE SODIUM 100 MG CAPSULE PO (21:37)
[2021-09-04] MEDS: traZODone HCL 50 MG TABLET PO (21:37)
[2021-09-04] MEDS: guaiFENesin 12 HR 600 MG TABCR PO (21:37)
[2021-09-04] MEDS: cefTRIAXone 2 GM in SODIUM CHLORIDE 0.9% IV 100 ML 200 ML IVPB (22:27)
[2021-09-05 00:07] LABS: Influenza Control Positive
[2021-09-05 06:00] VITALS: BP 158/68; PULSE 60; RESP 16; TEMP 36.4; O2SAT 98
[2021-09-05 06:59] LABS: Hematocrit 35.3 % (37.0-47.0); Hemoglobin 11.1 g/dL (12.0-15.0); Mean Corpuscular HGB Conc 31.4 g/dl (32-36); Mean Corpuscular Hemoglobin 28.5 pg (26-34); Mean Corpuscular Volume 90.5 fl (80-100); Mean Platelet Volume 8.5 fl (7.4-10.4); Platelet Count Result 125 k/mm3 (150-375); Red Cell Distribution Width 15.2 % (11.5-14.5)
[2021-09-05 07:08] LABS: Alanine Aminotransferase 13 U/L (6-35); Albumin Level 3.5 g/dL (3.5-5.1); Alkaline Phosphatase 114 U/L (38-126); Anion Gap 6 mmol/L (8-16); Aspartate Amino Transferase 22 U/L (14-36); Bilirubin,Total 0.7 mg/dL (0.2-1.3); Blood Urea Nitrogen 16 mg/dL (7-17); Calcium 8.4 mg/dL (8.4-10.2); Carbon Dioxide 27 mmol/L (22-30); Chloride 108 mmol/L (98-107); Estimated CRCL calculation 44 ml/min; Estimated Glomerular Filt Rate > 60; Glucose 107 mg/dL (65-110); Potassium 3.6 mmol/L (3.4-5.0); Sodium 141 mmol/L (137-145)
[2021-09-05 07:39] LABS: Hemoglobin A1C 5.4 % (<5.7)
[2021-09-05] MEDS: GABAPENTIN 300 MG CAPSULE PO ×3 (08:00→17:16)
[2021-09-05] MEDS: MIRABEGRON 25 MG ER TABLET PO (08:01)
[2021-09-05] MEDS: FLUDROCORTISONE ACETATE 0.1 MG TABLET PO (08:01)
[2021-09-05] MEDS: MIDODRINE HCL 2.5 MG TABLET 5 MG PO (08:01)
[2021-09-05] MEDS: PANTOPRAZOLE 40 MG TABLET PO (08:02)
[2021-09-05] MEDS: clonazePAM (*CRX) 0.5 MG TABLET 1 MG PO (08:02)
[2021-09-05] MEDS: guaiFENesin 12 HR 600 MG TABCR PO ×2 (08:02→20:04)
[2021-09-05] MEDS: DOCUSATE SODIUM 100 MG CAPSULE PO ×2 (08:02→20:04)
[2021-09-05] MEDS: PRAVASTATIN SODIUM 20 MG TABLET PO (08:02)
[2021-09-05] MEDS: polyethylene glycoL 3350 17 GM POWD.PACK PO ×2 (08:03→17:16)
[2021-09-05] MEDS: TOLNAFTATE 1% POWDER 45 GM BTL 1 APPLIC TOPICAL ×2 (08:03→20:04)
[2021-09-05] MEDS: BISACODYL 10 MG SUPPOSITORY RECTAL (13:24)
[2021-09-05 14:00] VITALS: BP 156/63; PULSE 64; RESP 16; TEMP 35.9; O2SAT 97
--- NOTE | 2021-09-05 16:16 | P.PNIM_ITS ---
Progress Note: A&P Assessment and Plan (1) Pneumonia: Qualifiers: Laterality: left Lung location: lower lobe of lung Pneumonia type: due to unspecified organism Qualified Code(s): J18.9 - Pneumonia, unspecified organism Code(s): J18.9 - Pneumonia, unspecified organism Status: Acute Assessment and Plan: CXR showed left lung opacities and CT of the chest showed pulmonary opacities reflecting multifocal * COVID-19 negative, influenza negative * continue ceftriaxone and azithromycin * supportive care to include bronchodilators, expectorants, antipyretics, incentive spirometry * urinary Legionella and pneumococcal antigens pending * attempt sputum culture collection CXR showed right lung nodule which may be due to infection/scarring. Likely due to infection. She will need follow up CT following treatment of pneumonia to ensure resolution of findings. (2) Constipation: Code(s): K59.00 - Constipation, unspecified Status: Acute Assessment and Plan: No bowel movement in 7 days * abdominal x-ray showed large volume of stool in the colon * CT of the abdomen/ pelvis showed no small or large bowel dilation * MiraLax b.i.d. and Colace b.i.d. * refused suppository yesterday. Agreeable to Dulcolax suppository today. * not agreeable to enema at this time. Wants to attempt with suppository first * if no bowel movement with above therapies, will need repeat abdominal x-ray (3) Gastro-esophageal reflux: Code(s): K21.9 - Gastro-esophageal reflux disease without esophagitis Status: Acute Assessment and Plan: no acute issues * continue Protonix (4) Pancytopenia: Code(s): D61.818 - Other pancytopenia Status: Acute Assessment and Plan: etiology unclear * review of labs suggest this to be a chronic problem, appears to be a baseline * Patient states she has been evaluated by a tar distillation supervisor for this in the past. She cannot recall the details and/or diagnosis but states she was told no treatment was needed * continue to monitor CBC (5) Elevated random blood glucose level: Code(s): R73.09 - Other abnormal glucose Status: Acute Assessment and Plan: blood glucose level on [facility] 09/04 was 230 * A1c is 5.4 * Fasting glucose this a.m. 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 She is feeling a bit better today but she continues to endorse abdominal fullness and bloating. She is having issues with early satiety and is only able to tolerate a few bites due to her abdominal fullness from constipation. She denies vomiting. She also endorses cough. She states she is producing sputum but it is getting stuck in her throat and she cannot get it out. She has been using the Cornet which she does think helps a bit. She denies fevers, chills, dizziness, lightheadedness. Denies shortness of breath, chest pain, or palpitations. Review of Systems Rev
--- NOTE | 2021-09-05 16:16 | PM.IMPN ---
Progress Note: A&P Assessment and Plan (1) Pneumonia: Qualifiers: Laterality: left Lung location: lower lobe of lung Pneumonia type: due to unspecified organism Qualified Code(s): J18.9 - Pneumonia, unspecified organism Code(s): J18.9 - Pneumonia, unspecified organism Status: Acute Assessment and Plan: CXR showed left lung opacities and CT of the chest showed pulmonary opacities reflecting multifocal COVID-19 negative, influenza negative continue ceftriaxone and azithromycin supportive care to include bronchodilators, expectorants, antipyretics, incentive spirometry urinary Legionella and pneumococcal antigens pending attempt sputum culture collection CXR showed right lung nodule which may be due to infection/scarring. Likely due to infection. She will need follow up CT following treatment of pneumonia to ensure resolution of findings. (2) Constipation: Code(s): K59.00 - Constipation, unspecified Status: Acute Assessment and Plan: No bowel movement in 7 days abdominal x-ray showed large volume of stool in the colon CT of the abdomen/ pelvis showed no small or large bowel dilation MiraLax b.i.d. and Colace b.i.d. refused suppository yesterday. Agreeable to Dulcolax suppository today. not agreeable to enema at this time. Wants to attempt with suppository first if no bowel movement with above therapies, will need repeat abdominal x-ray (3) Gastro-esophageal reflux: Code(s): K21.9 - Gastro-esophageal reflux disease without esophagitis Status: Acute Assessment and Plan: no acute issues continue Protonix (4) Pancytopenia: Code(s): D61.818 - Other pancytopenia Status: Acute Assessment and Plan: etiology unclear review of labs suggest this to be a chronic problem, appears to be a baseline Patient states she has been evaluated by a power bender operator for this in the past. She cannot recall the details and/or diagnosis but states she was told no treatment was needed continue to monitor CBC (5) Elevated random blood glucose level: Code(s): R73.09 - Other abnormal glucose Status: Acute Assessment and Plan: blood glucose level on 09/04 was 230 A1c is 5.4 Fasting glucose this a.m. 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 She is feeling a bit better today but she continues to endorse abdominal fullness and bloating. She is having issues with early satiety and is only able to tolerate a few bites due to her abdominal fullness from constipation. She denies vomiting. She also endorses cough. She states she is producing sputum but it is getting stuck in her throat and she cannot get it out. She has been using the Cornet which she does think helps a bit. She denies fevers, chills, dizziness, lightheadedness. Denies shortness of breath, chest pain, or palpitations. Review of Systems Review of Systems: All systems reviewed & are unremarkable except as noted in HPI and below Exam Narrative: General: Well-nourished, well-appearing 75-year-old female, sitting up in bed, comfortable, NARD Neuro: awake, alert and oriented x4, speech clear, no focal neuro deficits noted HEENMT: normocephalic, atraumatic, EOMI, sclerae anicteric Respiratory: clear to auscultation bilaterally, nonlabored breathing Cardio: regula
[2021-09-05] MEDS: AZITHROMYCIN 250 MG TABLET 500 MG PO (17:16)
[2021-09-05] MEDS: traZODone HCL 50 MG TABLET PO (20:04)
[2021-09-05 22:00] VITALS: BP 146/84; PULSE 61; RESP 14; TEMP 36.2; O2SAT 96
[2021-09-06 06:00] VITALS: BP 159/79; PULSE 60; RESP 14; TEMP 36.7; O2SAT 94
[2021-09-06 06:22] LABS: Hematocrit 34.8 % (37.0-47.0); Hemoglobin 11.5 g/dL (12.0-15.0); Mean Corpuscular Hemoglobin 28.5 pg (26-34); Mean Corpuscular Volume 86.1 fl (80-100); Mean Platelet Volume 8.8 fl (7.4-10.4); Platelet Count Result 122 k/mm3 (150-375); Red Blood Count 4.04 M/mm3 (4.2-5.4); Red Cell Distribution Width 14.8 % (11.5-14.5); White Blood Count 3.3 K/mm3 (4.5-10.0)
[2021-09-06 06:32] LABS: Anion Gap 6 mmol/L (8-16); Blood Urea Nitrogen 20 mg/dL (7-17); Calcium 8.4 mg/dL (8.4-10.2); Carbon Dioxide 25 mmol/L (22-30); Chloride 107 mmol/L (98-107); Estimated CRCL calculation 40 ml/min; Estimated Glomerular Filt Rate 54; Glucose 115 mg/dL (65-110); Potassium 3.7 mmol/L (3.4-5.0); Sodium 138 mmol/L (137-145)
[2021-09-06] MEDS: polyethylene glycoL 3350 17 GM POWD.PACK PO ×2 (09:15→17:39)
[2021-09-06] MEDS: FLUTICASONE PROPIONATE 0.05% NA SPR 16 GM BTL (*BKC) 2 SPRAY NASAL (09:16)
[2021-09-06] MEDS: clonazePAM (*CRX) 0.5 MG TABLET 1 MG PO (09:16)
[2021-09-06] MEDS: LINACLOTIDE 145 MCG CAPSULE PO (09:17)
[2021-09-06] MEDS: DOCUSATE SODIUM 100 MG CAPSULE PO ×2 (09:17→19:57)
[2021-09-06] MEDS: guaiFENesin 12 HR 600 MG TABCR PO ×2 (09:17→19:57)
[2021-09-06] MEDS: GABAPENTIN 300 MG CAPSULE PO ×3 (09:17→17:39)
[2021-09-06] MEDS: PANTOPRAZOLE 40 MG TABLET PO (09:17)
[2021-09-06] MEDS: PRAVASTATIN SODIUM 20 MG TABLET PO (09:17)
[2021-09-06] MEDS: MIDODRINE HCL 2.5 MG TABLET 5 MG PO (09:17)
[2021-09-06] MEDS: MIRABEGRON 25 MG ER TABLET PO (09:17)
[2021-09-06] MEDS: FLUDROCORTISONE ACETATE 0.1 MG TABLET PO (09:17)
[2021-09-06] MEDS: TOLNAFTATE 1% POWDER 45 GM BTL 1 APPLIC TOPICAL ×2 (09:18→19:58)
[2021-09-06] MEDS: MAGNESIUM CITRATE 300 ML BTL PO (11:16)
--- NOTE | 2021-09-06 12:15 | P.PNIM_ITS ---
Progress Note: A&P Assessment and Plan (1) Pneumonia: Qualifiers: Laterality: left Lung location: lower lobe of lung Pneumonia type: due to unspecified organism Qualified Code(s): J18.9 - Pneumonia, unspecified organism Code(s): J18.9 - Pneumonia, unspecified organism Status: Acute Assessment and Plan: CXR showed left lung opacities and CT of the chest showed pulmonary opacities reflecting multifocal pneumonia * COVID-19 negative, influenza negative * continue ceftriaxone and azithromycin * supportive care to include bronchodilators, expectorants, antipyretics, incentive spirometry * urinary Legionella and pneumococcal antigens pending * attempt sputum culture collection CXR showed right lung nodule which may be due to infection/scarring. Likely due to infection. She will need follow up CT following treatment of pneumonia to ensure resolution of findings. (2) Constipation: Code(s): K59.00 - Constipation, unspecified Status: Acute Assessment and Plan: No bowel movement in 8 days. Likely due to combination of decreased mobility (patient is wheelchair-bound) and recent Imodium use * Abdominal x-ray showed large volume of stool in the colon * CT of the abdomen/pelvis showed no small or large bowel dilation * MiraLax b.i.d. and Colace b.i.d. Dulcolax suppository * Repeat abdominal x-ray today showed nonobstructive bowel gas pattern with moderate to large amount of colonic stool * Patient agreeable to enema today. Will proceed with soapsuds enema as well as magnesium citrate 300 ml one time * She is tolerating her diet (3) Gastro-esophageal reflux: Code(s): K21.9 - Gastro-esophageal reflux disease without esophagitis Status: Acute Assessment and Plan: no acute issues * continue Protonix (4) Pancytopenia: Code(s): D61.818 - Other pancytopenia Status: Acute Assessment and Plan: etiology unclear * review of labs suggest this to be a chronic problem, appears to be at baseline * Patient states she has been evaluated by a netsuite developer for this in the past. She cannot recall the details and/or diagnosis but states she was told no treatment was needed * continue to monitor CBC (5) Elevated random blood glucose level: Code(s): R73.09 - Other abnormal glucose Status: Acute Assessment and Plan: blood glucose level on 09/04 was 230 * A1c is 5.4 * Fasting a.m. 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 Discussed having someone bring her wheelchair from home Subjective Date/time seen: 09/06/21 12:15 Interval history: Date of service: 09/06/2021 Ana Huber is a wheelchair dependent 75-year-old female with a history of orthostatic hypotension, hyperlipidemia, hit, DVT, seizure disorder who is seen in follow-up for community-acquired pneumonia and constipation. She is doing okay today. She continues to complain of abdominal fullness. She was able to tolerate her breakfast. She denies nausea or vomiting. Denies fevers, chills, dizziness, lightheadedness, weakness, shortness of breath, cough, or chest pa
--- NOTE | 2021-09-06 12:15 | PM.IMPN ---
Progress Note: A&P Assessment and Plan (1) Pneumonia: Qualifiers: Laterality: left Lung location: lower lobe of lung Pneumonia type: due to unspecified organism Qualified Code(s): J18.9 - Pneumonia, unspecified organism Code(s): J18.9 - Pneumonia, unspecified organism Status: Acute Assessment and Plan: CXR showed left lung opacities and CT of the chest showed pulmonary opacities reflecting multifocal pneumonia COVID-19 negative, influenza negative continue ceftriaxone and azithromycin supportive care to include bronchodilators, expectorants, antipyretics, incentive spirometry urinary Legionella and pneumococcal antigens pending attempt sputum culture collection CXR showed right lung nodule which may be due to infection/scarring. Likely due to infection. She will need follow up CT following treatment of pneumonia to ensure resolution of findings. (2) Constipation: Code(s): K59.00 - Constipation, unspecified Status: Acute Assessment and Plan: No bowel movement in 8 days. Likely due to combination of decreased mobility (patient is wheelchair-bound) and recent Imodium use Abdominal x-ray showed large volume of stool in the colon CT of the abdomen/pelvis showed no small or large bowel dilation MiraLax b.i.d. and Colace b.i.d. Dulcolax suppository Repeat abdominal x-ray today showed nonobstructive bowel gas pattern with moderate to large amount of colonic stool Patient agreeable to enema today. Will proceed with soapsuds enema as well as magnesium citrate 300 ml one time She is tolerating her diet (3) Gastro-esophageal reflux: Code(s): K21.9 - Gastro-esophageal reflux disease without esophagitis Status: Acute Assessment and Plan: no acute issues continue Protonix (4) Pancytopenia: Code(s): D61.818 - Other pancytopenia Status: Acute Assessment and Plan: etiology unclear review of labs suggest this to be a chronic problem, appears to be at baseline Patient states she has been evaluated by a cash application clerk for this in the past. She cannot recall the details and/or diagnosis but states she was told no treatment was needed continue to monitor CBC (5) Elevated random blood glucose level: Code(s): R73.09 - Other abnormal glucose Status: Acute Assessment and Plan: blood glucose level on [facility] 09/04 was 230 A1c is 5.4 Fasting a.m. 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 Discussed having someone bring her wheelchair from home Subjective Date/time seen: 09/06/21 12:15 Interval history: Date of service: 09/06/2021 Ana Huber is a wheelchair dependent 75-year-old female with a history of orthostatic hypotension, hyperlipidemia, hit, DVT, seizure disorder who is seen in follow-up for community-acquired pneumonia and constipation. She is doing okay today. She continues to complain of abdominal fullness. She was able to tolerate her breakfast. She denies nausea or vomiting. Denies fevers, chills, dizziness, lightheadedness, weakness, shortness of breath, cough, or chest pain. Continues to deny urinary symptoms including dysuria or hematuria. She is wheelchair-bound and has not been out of bed because she does not have her wheelchair here. She would like to see about using a wheelchair from the hospital while she is here so she can get out of bed Review of Systems Review of Systems: All systems reviewed & are unremarkable except as noted in HPI and below Exam Narrative: General:
[2021-09-06 14:00] VITALS: BP 148/64; PULSE 62; RESP 14; TEMP 36.3; O2SAT 98
--- NOTE | 2021-09-06 16:34 | PC.NURSE ---
administered soap suds enema at 1327 with help from SNT. Pt tolorated well. After 5 minutes after enema was administered, pt had two softball sized hard stools along with a copious amount of loose barbosa stool. pt states her abdomen feels less full. abdomen palpated and it was found to be soft. will continue to monitor stools
[2021-09-06] MEDS: AZITHROMYCIN 250 MG TABLET 500 MG PO (17:40)
[2021-09-06] MEDS: traZODone HCL 50 MG TABLET PO (19:57)
[2021-09-06 22:00] VITALS: BP 153/57; PULSE 84; RESP 18; TEMP 36.2; O2SAT 100
[2021-09-07 06:00] VITALS: BP 166/70; PULSE 63; RESP 20; TEMP 35.9; O2SAT 99
[2021-09-07 06:27] LABS: Hematocrit 35.4 % (37.0-47.0); Hemoglobin 11.1 g/dL (12.0-15.0); Mean Corpuscular HGB Conc 31.4 g/dl (32-36); Mean Corpuscular Hemoglobin 28.2 pg (26-34); Mean Corpuscular Volume 90.1 fl (80-100); Mean Platelet Volume 8.9 fl (7.4-10.4); Platelet Count Result 119 k/mm3 (150-375); Red Blood Count 3.93 M/mm3 (4.2-5.4); White Blood Count 3.1 K/mm3 (4.5-10.0)
[2021-09-07 06:37] LABS: Anion Gap 5 mmol/L (8-16); Blood Urea Nitrogen 18 mg/dL (7-17); Carbon Dioxide 25 mmol/L (22-30); Chloride 109 mmol/L (98-107); Estimated CRCL calculation 44 ml/min; Estimated Glomerular Filt Rate > 60; Glucose 105 mg/dL (65-110); Potassium 3.5 mmol/L (3.4-5.0); Sodium 139 mmol/L (137-145)
[2021-09-07] MEDS: MIDODRINE HCL 2.5 MG TABLET 5 MG PO (08:11)
[2021-09-07] MEDS: DOCUSATE SODIUM 100 MG CAPSULE PO (08:11)
[2021-09-07] MEDS: GABAPENTIN 300 MG CAPSULE PO (08:11)
[2021-09-07] MEDS: guaiFENesin 12 HR 600 MG TABCR PO (08:11)
[2021-09-07] MEDS: PRAVASTATIN SODIUM 20 MG TABLET PO (08:11)
[2021-09-07] MEDS: MIRABEGRON 25 MG ER TABLET PO (08:11)
[2021-09-07] MEDS: polyethylene glycoL 3350 17 GM POWD.PACK PO (08:11)
[2021-09-07] MEDS: TOLNAFTATE 1% POWDER 45 GM BTL 1 APPLIC TOPICAL (08:12)
[2021-09-07] MEDS: PANTOPRAZOLE 40 MG TABLET PO (08:12)
[2021-09-07] MEDS: FLUDROCORTISONE ACETATE 0.1 MG TABLET PO (08:12)
[2021-09-07] MEDS: clonazePAM (*CRX) 0.5 MG TABLET 1 MG PO (08:13)
--- NOTE | 2021-09-07 11:48 | P.DS_ITS ---
DS: Admitting Diagnosis Discharge Date 09/07/2021 Admitting Diagnosis community-acquired pneumonia DS: Discharge Diagnosis Discharge Diagnosis (1) Pneumonia: Qualifiers: Laterality: left Lung location: lower lobe of lung Pneumonia type: due to unspecified organism Qualified Code(s): J18.9 - Pneumonia, unspecified organism Code(s): J18.9 - Pneumonia, unspecified organism Status: Acute Assessment and Plan: CXR showed left lung opacities and CT of the chest showed pulmonary opacities reflecting multifocal pneumonia * COVID-19 negative, influenza negative * Treated with IV ceftriaxone and azithromycin. Completed 5 days of azithromycin. Will continue PO Cefdinir to complete 7 days. * Supportive care to include bronchodilators, expectorants, antipyretics, incentive spirometry * Urinary Legionella and pneumococcal antigens negative. * Sputum culture not able to be obtained CXR showed right lung nodule which may be due to infection/scarring (stable from previous imaging). Likely due to infection. She will need follow up CT following treatment of pneumonia to ensure resolution of findings. Follow up with PCP (2) Constipation: Code(s): K59.00 - Constipation, unspecified Status: Acute Assessment and Plan: Constipation with abdominal bloating and fullness. Likely due to combination of decreased mobility (patient is wheelchair-bound) and recent Imodium use * Abdominal x-ray showed large volume of stool in the colon * CT of the abdomen/pelvis showed no small or large bowel dilation * Managed with MiraLax b.i.d. and Colace b.i.d. Dulcolax suppository, magnesium citrate, soap suds enema x1 * Having regular bowel movements following this * Needs to continue consistent bowel regimen to prevent constipation * Previously was seeing GI for diarrhea. Reviewed note from 07/23/21 visit. Pt had stopped taking Linzess. GI LEATHER ROLLER recommended if Linzess discontinuation causes constipation, to decrease to 72 mcg daily. * Continue Miralax and colace daily with Linzess 72 mcg daily. * Follow up with GI outptient (3) Gastro-esophageal reflux: Code(s): K21.9 - Gastro-esophageal reflux disease without esophagitis Status: Acute Assessment and Plan: No acute issues * continue omeprazole (4) Pancytopenia: Code(s): D61.818 - Other pancytopenia Status: Acute Assessment and Plan: Etiology unclear * Review of labs suggest this to be a chronic problem, appears to be at baseline * Patient states she has been evaluated by a drafter civil for this in the past. She cannot recall the details and/or diagnosis but states she was told no treatment was needed (5) Elevated random blood glucose level: Code(s): R73.09 - Other abnormal glucose Status: Acute Assessment and Plan: blood glucose level on BMP 09/04 was 230 * A1c is 5.4 * Fasting a.m. 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 * Patient completely asymptomati
--- NOTE | 2021-09-07 11:48 | PM.DS ---
DS: Admitting Diagnosis Discharge Date 09/07/2021 Admitting Diagnosis community-acquired pneumonia DS: Discharge Diagnosis Discharge Diagnosis (1) Pneumonia: Qualifiers: Laterality: left Lung location: lower lobe of lung Pneumonia type: due to unspecified organism Qualified Code(s): J18.9 - Pneumonia, unspecified organism Code(s): J18.9 - Pneumonia, unspecified organism Status: Acute Assessment and Plan: CXR showed left lung opacities and CT of the chest showed pulmonary opacities reflecting multifocal pneumonia COVID-19 negative, influenza negative Treated with IV ceftriaxone and azithromycin. Completed 5 days of azithromycin. Will continue PO Cefdinir to complete 7 days. Supportive care to include bronchodilators, expectorants, antipyretics, incentive spirometry Urinary Legionella and pneumococcal antigens negative. Sputum culture not able to be obtained CXR showed right lung nodule which may be due to infection/scarring (stable from previous imaging). Likely due to infection. She will need follow up CT following treatment of pneumonia to ensure resolution of findings. Follow up with PCP (2) Constipation: Code(s): K59.00 - Constipation, unspecified Status: Acute Assessment and Plan: Constipation with abdominal bloating and fullness. Likely due to combination of decreased mobility (patient is wheelchair-bound) and recent Imodium use Abdominal x-ray showed large volume of stool in the colon CT of the abdomen/pelvis showed no small or large bowel dilation Managed with MiraLax b.i.d. and Colace b.i.d. Dulcolax suppository, magnesium citrate, soap suds enema x1 Having regular bowel movements following this Needs to continue consistent bowel regimen to prevent constipation Previously was seeing GI for diarrhea. Reviewed note from 07/23/21 visit. Pt had stopped taking Linzess. GI BEVEL GEAR GENERATOR OPERATOR recommended if Linzess discontinuation causes constipation, to decrease to 72 mcg daily. Continue Miralax and colace daily with Linzess 72 mcg daily. Follow up with GI outptient (3) Gastro-esophageal reflux: Code(s): K21.9 - Gastro-esophageal reflux disease without esophagitis Status: Acute Assessment and Plan: No acute issues continue omeprazole (4) Pancytopenia: Code(s): D61.818 - Other pancytopenia Status: Acute Assessment and Plan: Etiology unclear Review of labs suggest this to be a chronic problem, appears to be at baseline Patient states she has been evaluated by a real time trader for this in the past. She cannot recall the details and/or diagnosis but states she was told no treatment was needed (5) Elevated random blood glucose level: Code(s): R73.09 - Other abnormal glucose Status: Acute Assessment and Plan: blood glucose level on BMP 09/04 was 230 A1c is 5.4 Fasting a.m. 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 Patient completely asymptomatic.? Urine culture with growth of >100k ESBL.? Given the patient is asymptomatic, afebrile, no signs of acute infection, blood cultures negative, no need for treatment.? Discussed case with collaborating physician and Infectious Disease PharmD. DS: Summary Hospital Course Hospital Course: Date of admission: 09/03/2021 Date of discharge: 09/07/2021 Ana Huber is a wheelchair dependent 75-year-old female with
[2021-09-07 23:08] LABS: Pneumococcal Antigen Urine Not Detected (Not Detected)
[2021-09-08 04:02] LABS: Legionella pneumophila Ag Ur Not Detected (Not Detected)
== END 2021-09-07 13:50 | DRG 194 ==
LOC: ANHED 20:27 → ANH3MEDSUR 20:40
PROVIDERS: Emergency Medicine; Physician Assistant; Admitting Provider Internal Medicine; Emergency Provider Emergency Medicine; PCP Family Medicine; Visit Provider Family Medicine
DX: J18.9 Pneumonia, unspecified organism (principal); D61.818 Other pancytopenia; Z20.822 Contact with and (suspected) exposure to COVID-19; K59.00 Constipation, unspecified; K21.9 Gastro-esophageal reflux disease without esophagitis; R73.09 Other abnormal glucose; E78.5 Hyperlipidemia, unspecified; G40.909 Epilepsy, unspecified, not intractable, without status epilepticus; R91.1 Solitary pulmonary nodule; F41.9 Anxiety disorder, unspecified; D75.82 Heparin induced thrombocytopenia (HIT); D64.9 Anemia, unspecified; E50.9 Vitamin A deficiency, unspecified; Z66 Do not resuscitate; Z99.3 Dependence on wheelchair; Z90.49 Acquired absence of other specified parts of digestive tract; Z86.718 Personal history of other venous thrombosis and embolism; Z90.710 Acquired absence of both cervix and uterus; Z98.42 Cataract extraction status, left eye; Z98.41 Cataract extraction status, right eye; Z86.16 Personal history of COVID-19
CPT/HCPCS: 36415; 51701; 70450; 71046; 71250; 74018; 74176; 80048; 80053; 81001; 83036; 83690; 85025; 85027; 87040; 87077; 87086; 87186; 87449; 87804; 87899; 93005; 94640; 94667; 96365; 96366; 96367; 96375; 97161; 97165; 99285; A9270; C9803; G0378; J0131; J0456; J0696; J2405; J2543; U0003; U0005

== ENCOUNTER 2021-11-24 15:11 | Observation (INO) | payer OTHER, SELFPAY ==
[2021-11-24] VITALS (15 sets, daily range): BP systolic 122–189; BP diastolic 50–80; PULSE 53–64; RESP 14–20; TEMP 36.6–36.8; O2SAT 96–100; BMI 34.3
--- NOTE | ~2021-11-24 | CT_ITS ---
EXAMINATION: CT brain wo con DATE: 11/24/2021 15:56 INDICATION: weakness . TECHNIQUE: Computed tomography (CT) of the head was performed without intravenous contrast. The mA wa s adjusted according to patient size. Iterative reconstruction technique was employed. The dose-lengt h product was 605.33 mGy-cm. COMPARISON: 09/03/2021 FINDINGS: No acute intracranial hemorrhage or extra-axial fluid collection. No hydrocephalus, mass, or herniation. No acute ischemic infarct. Unremarkable dural venous sinus attenuation. No acute osseous abnormality. Left temporal osteoma. Hyperostosis frontalis. Minimal somewhat nodular appearing mucosal thickening in the bilateral maxillary, ethmoid, and spheno id sinuses, the remaining aerated spaces are clear. Mild atrophy and chronic white matter change. Atherosclerotic intracranial calcification. Bilateral l ens replacements. IMPRESSION: No acute intracranial process. Reviewed, dictated and finalized at location K.
--- NOTE | ~2021-11-24 | CT_ITS ---
EXAMINATION: CT cervical spine wo con DATE: 11/24/2021 15:57 INDICATION: fall, neck pain TECHNIQUE: Computed tomography (CT) of the cervical spine was performed without intravenous contrast. Automated exposure control and iterative reconstruction technique were employed. The dose-length pro duct was 378.16 mGy-cm. COMPARISON: None FINDINGS: Vertebral Body Alignment: Intact. Craniocervical and atlantoaxial alignment: Mild degenerative change. Alignment intact. Osseous structures/fracture: No evidence of a lytic or blastic process in the visualized spine. No e vidence of acute fracture. Cervical soft tissues: The paraspinal soft tissues planes are maintained. Degenerative changes: Moderate degenerative disc disease at C5-6. Severe right neural foraminal narro wing at C5-6. No severe central canal narrowing. IMPRESSION: No acute fracture or traumatic malalignment in the cervical spine. Reviewed, dictated and finalized at location K.
--- NOTE | ~2021-11-24 | XR_ITS ---
EXAMINATION: XR chest 1V portable Exam Date/Time: 11/24/2021 15:40 CDT HISTORY: weakness, fall today hx ataxia,anxiety,seizure,hypotension Comparison: 09/03/2021. RESULT: Lines, tubes, and devices: Cholecystectomy clips. Lungs and pleura: Bibasilar linear scar/atelectasis. Right midlung scar. Senescent change. Cardiomediastinal silhouette: Stable. Other: No acute osseous or upper abdominal finding. IMPRESSION: No acute cardiopulmonary process. Reviewed, dictated and finalized at location K.
--- NOTE | 2021-11-24 15:23 | ECG_ITS ---
Measurements Intervals [place] Rate: 53 P: 35 TX: 198 QRS: 48 QRSD: 88 T: 63 QT: 462 QTc: 437 Interpretive Statements SINUS BRADYCARDIA OTHERWISE WITHIN NORMAL LIMITS NO PREVIOUS ECG AVAILABLE FOR COMPARISON Electronically Signed On 11-25-2021 10:14:46 CDT by Loi Daugherty M.D.
--- NOTE | 2021-11-24 15:33 | ED.FALL ---
HPI - Fall General Chief Complaint: Fall Stated Complaint: fall, weakness Time Seen by Provider: 11/24/21 15:12 Source: patient, family and RN notes reviewed Mode of arrival: EMS Limitations: other (poor historian) History of Present Illness HPI Narrative: This is a 76 year old female with history of anxiety, ataxia , neurogenerative disorder of cerebellum who presents for evaluation of weakness and head injury. Patient fell out of her wheelchair yesterday and she hit forehead on floor. Patient refused to come to hospital yesterday. Patient fell more tired today and felt weak so she came for evaluation today. She reports frontal headache due to her fall and she also reports neck pain. 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 PAtient states her legs feel weaker than normal. She denies chest pain, sob, nausea, vomiting, or abdominal pain. Her family is at bedside to assist in history. She states patient has episodes in which they call seizures. She reports during these episodes patient passes out and she has worsening weakness and tremors. She is unsure if patient fell yesterday because she had an episode. They are unsure if she is having one of her episodes today. Related Data Home Medications Medication Instructions Recorded Confirmed ergocalciferol (vitamin D2) 50,000 50,000 unit PO WEEKLY 02/16/19 11/24/21 unit tablet fluticasone propionate 50 2 spray intranasal DAILY PRN 02/16/19 11/24/21 mcg/actuation nasal Allergy Symptoms spray,suspension (Flonase Allergy Relief) omeprazole 20 mg capsule,delayed 40 mg PO DAILY 02/16/19 11/24/21 release pravastatin 20 mg tablet 20 mg PO QHS 02/16/19 11/24/21 trazodone 50 mg tablet 50 mg PO HS 05/25/19 11/24/21 gabapentin 300 mg capsule 300 mg PO TID 02/15/20 11/24/21 mirabegron 25 mg tablet,extended 25 mg PO DAILY 02/15/20 11/24/21 release 24 hr (Myrbetriq) tramadol 50 mg tablet 50 mg PO Q6-8H PRN Pain 02/15/20 11/24/21 Fiber-Tabs 625 mg PO QAM 07/19/20 11/24/21 benzonatate 200 mg capsule 200 mg PO TID PRN Cough 03/02/21 11/24/21 midodrine 2.5 mg tablet 5 mg PO DAILY 03/02/21 11/24/21 benzonatate 200 mg capsule 200 mg PO TID PRN Cough 11/24/21 11/24/21 clonazepam 1 mg tablet 1 mg PO QAM 11/24/21 11/24/21 cyanocobalamin (vitamin B-12) 1,000 mcg PO DAILY 11/24/21 11/24/21 1,000 mcg tablet (Vitamin B-12) docusate sodium 100 mg capsule 100 mg PO QAM 11/24/21 11/24/21 linaclotide 72 mcg capsule 72 mcg PO PRN PRN Constipation 11/24/21 11/24/21 (Linzess) nitrofurantoin macrocrystal 50 mg 50 mg PO QAM 11/24/21 11/24/21 capsule nystatin 100,000 unit/gram topical 1 applic topical BID 11/24/21 11/24/21 cream Allergies Allergy/AdvReac Type Severity Reaction Status Date / Time adhesive Allergy Unknown BLISTERS Verified 11/24/21 20:23 Iodinated Contrast Media Allergy Unknown Swelling Verified 11/24/21 20:23 Review of Systems Review of Systems: All systems reviewed & are unremarkable except as noted in HPI and below Constitutional: Constitutional: Denies chills, Reports fatigue and Denies fever(s) Cardiovascular: Cardiovascular: Denies chest pain and Denies radiating jaw, neck or arm pain Respiratory: Respiratory: Denies chest congestion, Denies cough and Denies dyspnea Gastrointestinal: Gastrointestinal: Denies abdominal pain, Denies nausea and Denies vomiting Neurologic: Reports dizziness, Reports headache(s) and Reports focal weakness PMFSH Past Medical History Medical History Acute UTI Anemia Anxiety disorder Ataxia Constipation COVID-19 virus infection DVT (deep venous thrombosis) Fracture of tibial shaft, right, closed Gastro-esophageal reflux History of heparin-induced thrombocytopenia Hyperlipidemia Hypotension Leg weakness, bilateral Seizure Tinea unguium Urinary tract infection Vitamin A deficiency Weakness Wheelchair depend
[2021-11-24] MEDS: LACTATED RINGERS 1,000 ML 999 ML IV CONT (16:09)
[2021-11-24 16:13] LABS: Basophils Percent Auto 1.2 % (0.2-1.2); Eosinophils Absolute Auto 0.4 K/mm3 (0-0.3); Eosinophils Percent Auto 11.3 % (0-4.4); Hematocrit 37.3 % (37.0-47.0); Immature Granulocyte Absolute 0.01 K/mm3 (0.00-0.031); Immature Granulocyte Percent A 0.3 % (0-0.5); Lymphocytes Percent Auto 17.3 % (18.3-44.2); Mean Corpuscular HGB Conc 32.2 g/dl (32-36); Mean Corpuscular Hemoglobin 29.3 pg (26-34); Mean Platelet Volume 8.9 fl (7.4-10.4); Monocytes Absolute Auto 0.4 K/mm3 (0.1-0.6); Monocytes Percent Auto 10.7 % (2.6-8.5); Neutrophils Absolute Auto 2.1 K/mm3 (1.3-6.7); Neutrophils Percent Auto 59.2 % (45.5-73.1); Platelet Count Result 110 k/mm3 (150-375); White Blood Count 3.5 K/mm3 (4.5-10.0)
[2021-11-24 16:19] LABS: Add Urine Microscopic? YES; Appearance Urine Cloudy (Clear); Bacteria Urine 2+ /hpf; Bilirubin Urine Negative (Negative); Blood Urine 1+ (Negative); Color Urine Amber (Yellow); Glucose Urine UA Negative (Negative); Hyaline Casts Urine 15-19 /lpf; Ketones Urine Negative (Negative); Leukocyte Esterase Ur 3+ LEU/UL (Negative); Mucus Urine Rare /lpf; Nitrate Urine Positive (Negative); Protein Urine 1+ mg/dL (Negative); RBC Urine 21-50 /hpf (0-2); Specific Grav Ur 1.017 (1.001-1.035); Squamous Epithelial Cell Urine Many /hpf (Few); WBC Clumps Urine Present /HPF; WBC Urine >75 /hpf
[2021-11-24 16:23] LABS: INR 1.2; Prothrombin Time 14.4 Seconds (11.1-14.7)
[2021-11-24 16:24] LABS: Partial Thromboplastin Time 31.6 SECONDS (22.3-36.8)
[2021-11-24 16:28] LABS: Lactic Acid Reflex 1.6 mmol/L (0.7-2.0)
[2021-11-24 16:30] LABS: Alanine Aminotransferase 20 U/L (6-35); Albumin Level 3.7 g/dL (3.5-5.1); Alkaline Phosphatase 97 U/L (38-126); Anion Gap 11 mmol/L (8-16); Aspartate Amino Transferase 25 U/L (14-36); Bilirubin,Total 0.9 mg/dL (0.2-1.3); Blood Urea Nitrogen 17 mg/dL (7-17); Calcium 8.6 mg/dL (8.4-10.2); Carbon Dioxide 20 mmol/L (22-30); Chloride 109 mmol/L (98-107); Estimated Glomerular Filt Rate 44; Glucose 185 mg/dL (65-110); Magnesium 2.2 mg/dL (1.6-2.3); Potassium 3.7 mmol/L (3.4-5.0); Sodium 140 mmol/L (137-145)
[2021-11-24 16:41] LABS: Troponin I < 0.012 ng/mL (0.000-0.034)
[2021-11-24 16:47] LABS: SARS-CoV-2 RNA PCR Negative
--- NOTE | 2021-11-24 19:17 | PC.NURSE ---
EDP Lamas notified of patient's blood pressure of 179/80, no further interventions needed. Patient resting comfortably in bed.
--- NOTE | 2021-11-24 19:30 | ADMGEN ---
This patient, Ana Stewart, was admitted to Medical Room 343-01. Patient/family oriented to hospital policies and general routines including ID bracelet, bed and alarms, visiting hours, pain management, procedures, bathroom and other care routines, personal items, smoking policy, room service/diet, and visiting hours. Information on how to activate the Rapid Response Team has been discussed. Patient/Family are encouraged to report perceived risks to care and to ask questions if they do not understand what they are told or what they should do.
--- NOTE | 2021-11-24 20:42 | PM.IMHP ---
H&P: HPI History of Present Illness Date/Time: 11/24/21 20:42 Chief Complaint: generalized weakness Narrative: 75-year-old female with past medical history significant for anxiety disorder, seizure disorder, gastroesophageal reflux disease, hypertension, bilateral lower extremity weakness, wheelchair-bound, patient fell from her chair,patient presents to the emergency room due to fall preliminary workup was significant for urinalysis with numerous WBCs present. most of the history has been obtained from who noted patient has been overall very weak unable to transfer back and forth to wheelchair which is usually able to do. Patient has been admitted for further evaluation management and treatment. Review of Systems Review of Systems: Patient was brought for evaluation to the emergency room due to the generalized weakness falling when transferring back and forth wheel chair ROS unobtainable: Yes unobtainable due to mental status ( history has been obtained mainly from ) [facility] Past Medical History Medical History (Updated 11/27/21 @ 15:45 by Cate Wells, CHRIS) Acute UTI Anemia Anxiety disorder Ataxia Constipation COVID-19 virus infection DVT (deep venous thrombosis) Fracture of tibial shaft, right, closed Gastro-esophageal reflux History of heparin-induced thrombocytopenia Hyperlipidemia Hypotension Leg weakness, bilateral Orthostatic hypotension Seizure Tinea unguium Urinary tract infection Vitamin A deficiency Weakness Wheelchair dependence Surgical History Surgical History H/O bilateral cataract extraction H/O: hysterectomy Hx of cholecystectomy Family History Family History Sibling Patient's sister is in good health Patient's brother is in good health Mother Family history of malignant neoplasm of ovary, Onset Age: 32 Patient's mother is Father Patient's father is Acute myocardial infarction Social History Social History (System 10/26/21 @ 10:25 by Obi Kee) Social History: The patient lives home alone at the [facility] living although she is . The does not live with her. The patient has 2 children. Her daughter Belkys is the durable power compliance attorney for healthcare. 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 She is a lifelong nonsmoker. She does not use any alcohol marijuana illicit drugs. Code status DNR code status DNR Smoking status: Never smoker Second hand tobacco smoke exposure: No Alcohol intake: never Substance use: never Substance use type: does not use Gender identity (if verbalized by the patient): Female Spiritual care concerns: No Meds Home Medications and Allergies Home Medications Medication Instructions Recorded Confirmed Type ergocalciferol (vitamin D2) 50,000 50,000 unit PO WEEKLY 02/16/19 11/24/21 History unit tablet fluticasone propionate 50 2 spray intranasal DAILY PRN 02/16/19 11/24/21 History mcg/actuation nasal Allergy Symptoms spray,suspension (Flonase Allergy Relief) omeprazole 20 mg capsule,delayed 40 mg PO DAILY 02/16/19 11/24/21 History release pravastatin 20 mg tablet 20 mg PO QHS 02/16/19 11/24/21 History trazodone 50 mg tablet 50 mg PO HS 05/25/19 11/24/21 History gabapentin 300 mg capsule 300 mg PO TID 02/15/20 11/24/21 History mirabegron 25 mg tablet,extended 25 mg PO DAILY 02/15/20 11/24/21 History release 24 hr (Myrbetriq) tramadol 50 mg tablet 50 mg PO Q6-8H PRN Pain 02/15/20 11/24/21 History Fiber-Tabs 625 mg PO QAM 07/19/20 11/24/21 History fludrocortisone 0.1 mg tablet 0.1 mg PO DAILY #30 tabs 07/22/20 11/24/21 Rx albuterol sulfate 90 mcg/actuation 1 inh inhalation QID PRN shortness 09/07/21 11/24/21 Rx aerosol inhaler of breath or wheezing #6.7 grams polyethylene glycol 3350 17 gram 17 g PO DAILY #10 ea 09/07/21 1
[2021-11-24] MEDS: SODIUM CHLORIDE 0.9% IV 1,000 ML 125 ML IV CONT (21:40)
[2021-11-25 04:40] VITALS: BP 167/66; PULSE 68; RESP 20; TEMP 36.4; O2SAT 97
[2021-11-25] MEDS: SODIUM CHLORIDE 0.9% IV 1,000 ML 125 ML IV CONT (05:45)
[2021-11-25 06:46] LABS: Eosinophils Absolute Auto 0.4 K/mm3 (0-0.3); Eosinophils Percent Auto 13.5 % (0-4.4); Hematocrit 37.1 % (37.0-47.0); Hemoglobin 12.2 g/dL (12.0-15.0); Immature Granulocyte Absolute 0.01 K/mm3 (0.00-0.031); Immature Granulocyte Percent A 0.3 % (0-0.5); Lymphocytes Absolute Auto 0.45 K/mm3 (0.9-3.2); Lymphocytes Percent Auto 14.9 % (18.3-44.2); Mean Corpuscular HGB Conc 32.9 g/dl (32-36); Mean Corpuscular Hemoglobin 28.8 pg (26-34); Mean Corpuscular Volume 87.7 fl (80-100); Mean Platelet Volume 8.5 fl (7.4-10.4); Monocytes Absolute Auto 0.3 K/mm3 (0.1-0.6); Monocytes Percent Auto 8.9 % (2.6-8.5); Neutrophils Absolute Auto 1.9 K/mm3 (1.3-6.7); Neutrophils Percent Auto 61.4 % (45.5-73.1); Platelet Count Result 108 k/mm3 (150-375); Red Blood Count 4.23 M/mm3 (4.2-5.4); Red Cell Distribution Width 13.8 % (11.5-14.5)
[2021-11-25 06:53] LABS: Alanine Aminotransferase 19 U/L (6-35); Albumin Level 3.5 g/dL (3.5-5.1); Alkaline Phosphatase 101 U/L (38-126); Anion Gap 9 mmol/L (8-16); Aspartate Amino Transferase 25 U/L (14-36); Bilirubin,Total 0.7 mg/dL (0.2-1.3); Blood Urea Nitrogen 14 mg/dL (7-17); Calcium 8.3 mg/dL (8.4-10.2); Carbon Dioxide 26 mmol/L (22-30); Chloride 108 mmol/L (98-107); Estimated CRCL calculation 44 ml/min; Estimated Glomerular Filt Rate > 60; Glucose 121 mg/dL (65-110); Potassium 3.6 mmol/L (3.4-5.0); Sodium 143 mmol/L (137-145)
[2021-11-25] MEDS: DOCUSATE SODIUM 100 MG CAPSULE PO (09:39)
[2021-11-25] MEDS: FLUDROCORTISONE ACETATE 0.1 MG TABLET PO (09:39)
[2021-11-25] MEDS: clonazePAM (*CRX) 0.5 MG TABLET 1 MG PO (09:39)
[2021-11-25] MEDS: GABAPENTIN 300 MG CAPSULE PO ×3 (09:39→17:42)
[2021-11-25] MEDS: MIDODRINE HCL 2.5 MG TABLET 5 MG PO (09:39)
[2021-11-25] MEDS: MIRABEGRON 25 MG ER TABLET PO (09:40)
[2021-11-25] MEDS: CYANOCOBALAMIN 1,000 MCG TABLET 1000 MCG PO (09:40)
[2021-11-25] MEDS: FLUTICASONE PROPIONATE 0.05% NA SPR 16 GM BTL (*BKC) 2 SPRAY NASAL (09:41)
--- NOTE | 2021-11-25 14:37 | PM.IMPN ---
Progress Note: A&P Assessment and Plan (1) Fall: Code(s): W19.XXXA - Unspecified fall, initial encounter Status: Acute Assessment and Plan: Patient fell forward out of wheelchair on to forehead Head CT showed no acute intracranial finding Cervical spine CT with no acute fracture or traumatic malalignment Implement fall precautions Supportive care Appreciate PT/OT (2) Cystitis: Code(s): N30.90 - Cystitis, unspecified without hematuria Status: Suspected Assessment and Plan: Patient with frequent UTI presented with abnormal urinalysis and complaints of urinary frequency Continue empiric IV ceftriaxone Urine culture is pending. Await results and tailor antibiotics accordingly (3) 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 on wheelchair Status: Acute Assessment and Plan: Secondary to neuro degenerative disease of brainstem Continue PT/OT during admission (4) Orthostatic hypotension: Code(s): I95.1 - Orthostatic hypotension Status: Acute Assessment and Plan: No acute issues Continue midodrine and fludrocortisone Monitor BP trends (5) Thrombocytopenia: Code(s): D69.6 - Thrombocytopenia, unspecified Status: Acute Assessment and Plan: Seems to be a persistent issue on review of prior labs Continue monitor CBC with differential Subjective Date/time seen: 11/25/21 14:37 Interval history: Date of service: 11/25/2021 Ana Huber is a wheelchair dependent 76 year old female with a history of orthostatic hypotension, hyperlipidemia, HIT, DVT, seizure disorder, chronic constipation who is seen in follow-up for fall from wheelchair. The patient was bending over to pick a shirt up off the ground and fell forward hitting her forehead. She denies any head pain now. She is starting to get some bruising around her eyes but denies any visual changes. She does feel weak. She endorses decreased appetite. She endorses urinary frequency but denies urgency, dysuria, hematuria. No nausea, vomiting, fever, or chills. No flank or back pain. States her last bowel movement was about 3 days ago. She denies dizziness or lightheadedness. No additional concerns at this time. Review of Systems Review of Systems: All systems reviewed & are unremarkable except as noted in HPI and below Exam Narrative: General: Well-nourished, chronically ill-appearing 76-year-old female, sitting in a chair by the bedside comfortable, NARD Neuro: awake, alert and oriented x4, speech clear, no focal neuro deficits noted HEENMT: normocephalic, atraumatic, EOMI, sclerae anicteric Respiratory: clear to auscultation bilaterally, nonlabored breathing Cardio: regular rate, regular rhythm with S1-S2 Abdomen: nondistended, normoactive bowel sounds, soft, nontender to palpation Extremities: no edema, erythema, or tenderness to palpation Skin: Bruising of medial eyes bilaterally, starting to spread downward, faint bruising and edema of the anterior forehead, no rashes or lesions, warm and dry Psych: appropriate mood and affect, judgment and insight intact Objective Data Vital Signs Vital Signs: Vital Signs - 24 hr 11/24/21 15:13 11/24/21 15:42 11/24/21 15:57 Temperature 98.2 F Pulse Rate 62 57 L 58 L Respiratory Rate 18 15 17 Blood Pressure 122/50 L Pulse Oximetry 99 97 98 Oxygen Delivery Room Air 11/24/21 16:00 11/24/21 16:15 11/24/21 16:30 Temperature Pulse Rate 53 L 53 L 58 L Respiratory Rate 17 15 14 Blood Pressure Pulse Oximetry 100 97 Oxygen Delivery 11/24/21 16:31 11/24/21 16:45 11/24/21 17:00 Temperature Pulse Rate 55 L 63 64 Respiratory Rate 17 15 16 Blood Pressure 156/50 H Pulse Oximetry 98 99 98 Oxygen Delivery 11/24/21 17:02 11/24/21 17:15 11/24/21 17:30 Temperature Pulse Rate 61 62 64 Respiratory Rate 16 17 16 Blood Pressure 174/79 H Pulse Oximetry 97
[2021-11-25 17:00] VITALS: PULSE 64; RESP 16; TEMP 36.1; O2SAT 93
[2021-11-25] MEDS: BENZOCAINE/MENTHOL (*BKC) 18 EA LOZENGE 1 LOZENGE PO (19:00)
[2021-11-25 20:24] VITALS: BP 162/78; PULSE 72; RESP 16; TEMP 36.4; O2SAT 95
[2021-11-25] MEDS: PRAVASTATIN SODIUM 20 MG TABLET PO (21:03)
[2021-11-25] MEDS: traZODone HCL 50 MG TABLET PO (21:03)
[2021-11-26 05:20] VITALS: BP 155/77; PULSE 79; RESP 18; TEMP 36.6; O2SAT 96
[2021-11-26 05:43] LABS: Hematocrit 37.1 % (37.0-47.0); Hemoglobin 12.1 g/dL (12.0-15.0); Mean Corpuscular HGB Conc 32.6 g/dl (32-36); Mean Corpuscular Hemoglobin 29.3 pg (26-34); Mean Corpuscular Volume 89.8 fl (80-100); Mean Platelet Volume 8.6 fl (7.4-10.4); Platelet Count Result 102 k/mm3 (150-375); Red Blood Count 4.13 M/mm3 (4.2-5.4); Red Cell Distribution Width 13.8 % (11.5-14.5); White Blood Count 3.2 K/mm3 (4.5-10.0)
[2021-11-26 05:53] LABS: Anion Gap 9 mmol/L (8-16); Blood Urea Nitrogen 15 mg/dL (7-17); Calcium 8.6 mg/dL (8.4-10.2); Carbon Dioxide 26 mmol/L (22-30); Chloride 107 mmol/L (98-107); Estimated CRCL calculation 40 ml/min; Estimated Glomerular Filt Rate 54; Glucose 104 mg/dL (65-110); Potassium 3.5 mmol/L (3.4-5.0); Sodium 142 mmol/L (137-145)
[2021-11-26] MEDS: FLUDROCORTISONE ACETATE 0.1 MG TABLET PO (08:38)
[2021-11-26] MEDS: DOCUSATE SODIUM 100 MG CAPSULE PO (08:38)
[2021-11-26] MEDS: GABAPENTIN 300 MG CAPSULE PO ×3 (08:38→17:11)
[2021-11-26] MEDS: MIDODRINE HCL 2.5 MG TABLET 5 MG PO (08:38)
[2021-11-26] MEDS: MIRABEGRON 25 MG ER TABLET PO (08:38)
[2021-11-26] MEDS: clonazePAM (*CRX) 0.5 MG TABLET 1 MG PO (08:38)
[2021-11-26] MEDS: CYANOCOBALAMIN 1,000 MCG TABLET 1000 MCG PO (08:38)
--- NOTE | 2021-11-26 12:51 | PM.IMPN ---
Progress Note: A&P Assessment and Plan (1) Fall: Code(s): W19.XXXA - Unspecified fall, initial encounter Status: Acute Assessment and Plan: Patient fell forward out of wheelchair on to forehead Head CT showed no acute intracranial finding Cervical spine CT with no acute fracture or traumatic malalignment Implement fall precautions Supportive care Appreciate PT/OT (2) Cystitis: Code(s): N30.90 - Cystitis, unspecified without hematuria Status: Suspected Assessment and Plan: Patient with frequent UTI presented with abnormal urinalysis and complaints of urinary frequency Continue empiric IV ceftriaxone Urine culture grew out E.coli and Enterococcus. Sensitivity pending. (3) 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 on wheelchair Status: Acute Assessment and Plan: Secondary to neuro degenerative disease of brainstem Continue PT/OT during admission (4) Orthostatic hypotension: Code(s): I95.1 - Orthostatic hypotension Status: Acute Assessment and Plan: No acute issues Continue midodrine and fludrocortisone Monitor BP trends Does not appear to be orthostatic currently. (5) Thrombocytopenia: Code(s): D69.6 - Thrombocytopenia, unspecified Status: Acute Assessment and Plan: Seems to be a persistent issue on review of prior labs Continue monitor CBC with differential Time Spent With Patient Time with patient: 15 - 25 minutes Subjective Date/time seen: 11/26/21 1100 This pt. was examined at the bedside today in interval assessment. She has complaints that she is a little tired, but overall feels well otherwise. She has not had any fevers and she has no CP, dyspnea, N/V/D/headache, lightheadedness or dizziness. She currently remains on Ceftriaxone for UTI. Culture resulted in E. coli and Enterococcus. Sensitivity is pending. She has had multiple UTI's in the recent past. Review of Systems Review of Systems: All systems reviewed & are unremarkable except as noted in HPI and below Exam Narrative: General: Well-nourished, chronically ill-appearing 76-year-old female, sitting in a chair by the bedside comfortable, NARD Neuro: awake, alert and oriented x4, speech clear, no focal neuro deficits noted HEENMT: normocephalic, atraumatic, EOMI, sclerae anicteric Respiratory: clear to auscultation bilaterally, nonlabored breathing Cardio: regular rate, regular rhythm with S1-S2 Abdomen: nondistended, normoactive bowel sounds, soft, nontender to palpation Extremities: no edema, erythema, or tenderness to palpation Skin: Bruising of medial eyes bilaterally, starting to spread downward, faint bruising and edema of the anterior forehead, no rashes or lesions, warm and dry Psych: appropriate mood and affect, judgment and insight intact Objective Data Vital Signs Vital Signs: Vital Signs - 24 hr 11/25/21 17:00 11/25/21 20:24 11/26/21 05:20 Temperature 97 F L 97.6 F 97.9 F Pulse Rate 64 72 79 Respiratory Rate 16 16 18 Blood Pressure 162/78 H 155/77 H Pulse Oximetry 93 95 96 Intake/Output Intake/Output: Intake & Output 11/23/21 11/24/21 11/25/21 11/26/21 23:59 23:59 23:59 23:59 Intake Total 1050 3010 630 Output Total 550 2100 450 Balance 500 910 180 Meds/Results Medications: Active Medications Generic Name Dose Route Start Last Admin Trade Name Freq PRN Reason Stop Dose Admin Albuterol 1 puff 11/25/21 08:39 Albuterol Sulfate (*Sp) Aerosol 1 Puff INHALATION QID PRN shortness of breath or wheezing Benzocaine 1 lozenge 11/25/21 18:49 11/25/21 19:00 Benzocaine/Menthol (*Bkc) 18 Ea Lozenge PO 1 lozenge PRN PRN Administration Sore Throat Clonazepam 1 mg 11/25/21 09:00 11/26/21 08:38 Clonazepam (*Crx) 0.5 Mg Tablet PO 1 mg QAM NORAH Administration Cyanocobalamin 1,000 mcg 11/25/21 09:00 11/26/21 08:38 Cyanocobalamin 1,000 Mcg
[2021-11-26 14:47] VITALS: BP 170/77; PULSE 65; RESP 18; TEMP 36.7; O2SAT 96
[2021-11-26 20:10] VITALS: BP 184/86; PULSE 67; RESP 18; TEMP 36.6; O2SAT 96
[2021-11-26] MEDS: PRAVASTATIN SODIUM 20 MG TABLET PO (21:18)
[2021-11-26] MEDS: traZODone HCL 50 MG TABLET PO (21:18)
[2021-11-26 22:32] VITALS: BP 182/90
[2021-11-26] MEDS: hydrALAZINE HCL 20 MG/ML VIAL 10 MG IV PUSH (22:33)
[2021-11-26 23:26] VITALS: BP 135/59
[2021-11-27 05:14] VITALS: BP 158/79; PULSE 66; RESP 16; TEMP 36.8; O2SAT 95
[2021-11-27] MEDS: clonazePAM (*CRX) 0.5 MG TABLET 1 MG PO (08:27)
[2021-11-27] MEDS: GABAPENTIN 300 MG CAPSULE PO ×3 (08:28→17:23)
[2021-11-27] MEDS: CYANOCOBALAMIN 1,000 MCG TABLET 1000 MCG PO (08:28)
[2021-11-27] MEDS: MIRABEGRON 25 MG ER TABLET PO (08:28)
[2021-11-27] MEDS: DOCUSATE SODIUM 100 MG CAPSULE PO (08:28)
[2021-11-27] MEDS: FLUDROCORTISONE ACETATE 0.1 MG TABLET PO (08:28)
[2021-11-27 13:35] VITALS: O2SAT 97
[2021-11-27] MEDS: polyethylene glycoL 3350 17 GM POWD.PACK PO (13:37)
--- NOTE | 2021-11-27 13:59 | PM.IMPN ---
Progress Note: A&P Assessment and Plan (1) Fall: Qualifiers: Encounter type: initial encounter Qualified Code(s): W19.XXXA - Unspecified fall, initial encounter Code(s): W19.XXXA - Unspecified fall, initial encounter Status: Acute Assessment and Plan: Patient fell forward out of wheelchair on to forehead Head CT showed no acute intracranial finding Cervical spine CT with no acute fracture or traumatic malalignment Implement fall precautions Supportive care Appreciate PT/OT (2) Cystitis: Code(s): N30.90 - Cystitis, unspecified without hematuria Status: Suspected Assessment and Plan: Patient with frequent UTI presented with abnormal urinalysis and complaints of urinary frequency Urine culture grew out MDR E.coli and ESBL Enterococcus. Stop Rocephin IV. Patient is asymptomatic and ?colonization. Will hold antibiotics for now and repeat CBC in am. Patient counseled on symptoms to report. (3) 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 on wheelchair Status: Acute Assessment and Plan: Secondary to neuro degenerative disease of brainstem Continue PT/OT during admission (4) Orthostatic hypotension: Code(s): I95.1 - Orthostatic hypotension Status: Acute Assessment and Plan: No acute issues Continue fludrocortisone Midodrine discontinued Monitor BP trends (5) Thrombocytopenia: Code(s): D69.6 - Thrombocytopenia, unspecified Status: Acute Assessment and Plan: Seems to be a persistent issue on review of prior labs Continue monitor CBC with differential No s/s bleeding, petechiae or purpura (6) Constipation: Qualifiers: Constipation type: chronic idiopathic constipation Qualified Code(s): K59.04 - Chronic idiopathic constipation Code(s): K59.00 - Constipation, unspecified Status: Acute Assessment and Plan: Continue miralax daily Bisacodyl suppository x1. Plan CODE STATUS: FULL CODE Disposition: return to assisted living in 24-48 hours. Time Spent With Patient Time with patient: 15 - 25 minutes Subjective Date/time seen: 11/27/21 13:59 Patient found lying in bed. She reports waking up at night most nights gasping for breath and feeling like she has to breath from [her] abdomen. No c/o dysuria, urinary urgency/hesitancy/frequency, incontinence, hematuria or flank pain. She has been afebrile since admission. She endorses frequent small stools and is concerned she is constipated. Nursing reports the patient has been refusing her miralax because she is concerned to have loose stool if discharged today. Review of Systems Review of Systems: All systems reviewed & are unremarkable except as noted in HPI and below Exam Narrative: General: Well-nourished, chronically ill-appearing older adult female, No acute distress. Neuro: awake, alert and oriented x4, speech clear, no focal neuro deficits noted HEENT: normocephalic, atraumatic, PERRL, EOMI, sclerae anicteric, mucous membranes moist. Neck: Supple. Chest: RR even and unlabored. Lung sounds clear to auscultation bilaterally without wheezes, rhonchi or rales, nonlabored breathing Heart: regular rate, regular rhythm with S1-S2. No murmurs, gallops or rubs. Abdomen: soft, obese, nondistended, normoactive bowel sounds, nontender to palpation. No guarding, suprapubic or rebound tenderness. Extremities: Moves all extremities equally and with full strength. No edema, erythema, or tenderness to palpation. Radial and dorsalis pedis pulses palpable and equal bilaterally. Skin: Fair, warm, dry and intact. No cyanosis. no rashes or lesions Psych: Neutral mood and affect, pleasant and cooperative. Objective Data Vital Signs Vital Signs: Vital Signs - 24 hr 11/26/21 14:47 11/26/21 20:10 11/26/21 22:32 Temperature 98.0 F 98 F Pulse Rate 65 67 Respiratory Rate 18 18 Blood
[2021-11-27 14:00] VITALS: BP 187/79; PULSE 63; RESP 18; TEMP 36.4; O2SAT 98
[2021-11-27] MEDS: BISACODYL 10 MG SUPPOSITORY RECTAL (19:32)
[2021-11-27 19:43] VITALS: BP 169/71; PULSE 72; RESP 18; TEMP 36.6; O2SAT 96
[2021-11-27] MEDS: traZODone HCL 50 MG TABLET PO (20:56)
[2021-11-27] MEDS: PRAVASTATIN SODIUM 20 MG TABLET PO (20:56)
[2021-11-27 22:30] VITALS: O2SAT 95
[2021-11-28 04:00] VITALS: BP 152/72; PULSE 62; RESP 18; TEMP 36.2; O2SAT 97
[2021-11-28 05:50] LABS: Eosinophils Absolute Auto 0.4 K/mm3 (0-0.3); Eosinophils Percent Auto 13.8 % (0-4.4); Hematocrit 36.9 % (37.0-47.0); Hemoglobin 12.1 g/dL (12.0-15.0); Immature Granulocyte Absolute 0.01 K/mm3 (0.00-0.031); Immature Granulocyte Percent A 0.3 % (0-0.5); Lymphocytes Absolute Auto 0.75 K/mm3 (0.9-3.2); Lymphocytes Percent Auto 24.1 % (18.3-44.2); Mean Corpuscular HGB Conc 32.8 g/dl (32-36); Mean Corpuscular Hemoglobin 29.2 pg (26-34); Mean Corpuscular Volume 88.9 fl (80-100); Mean Platelet Volume 8.3 fl (7.4-10.4); Monocytes Absolute Auto 0.3 K/mm3 (0.1-0.6); Monocytes Percent Auto 9.6 % (2.6-8.5); Neutrophils Absolute Auto 1.6 K/mm3 (1.3-6.7); Neutrophils Percent Auto 51.2 % (45.5-73.1); Platelet Count Result 102 k/mm3 (150-375); Red Blood Count 4.15 M/mm3 (4.2-5.4); Red Cell Distribution Width 13.8 % (11.5-14.5); White Blood Count 3.1 K/mm3 (4.5-10.0)
[2021-11-28] MEDS: CYANOCOBALAMIN 1,000 MCG TABLET 1000 MCG PO (08:30)
[2021-11-28] MEDS: PANTOPRAZOLE 40 MG TABLET PO (08:30)
[2021-11-28] MEDS: GABAPENTIN 300 MG CAPSULE PO ×3 (08:30→16:36)
[2021-11-28] MEDS: clonazePAM (*CRX) 0.5 MG TABLET 1 MG PO (08:30)
--- NOTE | 2021-11-28 11:33 | PM.DS ---
DS: Admitting Diagnosis Discharge Date 11/28/212021 Admitting Diagnosis Fall Acute cystitis Generalized weakness DS: Discharge Diagnosis Discharge Diagnosis (1) Fall: Qualifiers: Encounter type: initial encounter Qualified Code(s): W19.XXXA - Unspecified fall, initial encounter Code(s): W19.XXXA - Unspecified fall, initial encounter Status: Acute Assessment and Plan: Patient fell forward out of wheelchair on to forehead Head CT showed no acute intracranial finding Cervical spine CT with no acute fracture or traumatic malalignment Implement fall precautions Supportive care Appreciate PT/OT (2) Cystitis: Code(s): N30.90 - Cystitis, unspecified without hematuria Status: Suspected Assessment and Plan: Patient with frequent UTI presented with abnormal urinalysis and complaints of urinary frequency Urine culture grew out MDR E.coli and ESBL Enterococcus. Stop Rocephin IV. Patient is asymptomatic and ?colonization. Will hold antibiotics for now and repeat CBC in am. Patient counseled on symptoms to report. (3) 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 on wheelchair Status: Acute Assessment and Plan: Secondary to neuro degenerative disease of brainstem Continue PT/OT during admission (4) Orthostatic hypotension: Code(s): I95.1 - Orthostatic hypotension Status: Acute Assessment and Plan: No acute issues Continue fludrocortisone Midodrine discontinued Monitor BP trends (5) Thrombocytopenia: Code(s): D69.6 - Thrombocytopenia, unspecified Status: Acute Assessment and Plan: Seems to be a persistent issue on review of prior labs Continue monitor CBC with differential No s/s bleeding, petechiae or purpura (6) Constipation: Qualifiers: Constipation type: chronic idiopathic constipation Qualified Code(s): K59.04 - Chronic idiopathic constipation Code(s): K59.00 - Constipation, unspecified Status: Acute Assessment and Plan: Continue miralax daily Bisacodyl suppository x1. DS: Summary Hospital Course Reason for hospitalization: generalized weakness Hospital Course: Ana Stewart is a 75-year-old female with anxiety disorder, seizure disorder, gastroesophageal reflux disease, hypertension, bilateral lower extremity weakness and wheelchair-bound. The patient patient fell from her chair at assisted living facility and presented to the emergency room following her fall. She reported hitting her forehead on the floor. The patient initially refused to come to the hospital, but felt more tired on the day of admission. She also reported c/o frontal SAM, weakness, increased weakness, and neck pain. She reported having episodes where she passes out and worsening weakness and tremors that patient states was considered seizures. She is unsure if she had an episode on the day of her fall. She denied chest pain, SOB, nausea, vomiting, or abdominal pain. Vital signs were stable in ED. Lab work was significant for WBC 3.5, platelets 110, BUN 17, creatinine 1.2, and glucose 185. UA showed cloudy urine with +nitrates, 3+ leukocytes, >75 WBC, many epi cells and 2+ bacteria. She was started on Rocephin 1 gram Q24 hours. Head CT and cervical spine CT were negative for acute disease or fracture. Patient was admitted to the medical floor. She was continued on IV Rocephin 1 gram Q24 hour therapy. Urine culture returned with MDR E.coli and ESBL enterococcus. Patient was afebrile and asymptomatic when reassessed on 11/27/21. She was monitored off antibiotics as the UA was not a clean catch and patient reported no symptoms prior to admission or on the day of culture results. As Rocephin was not covering her UTI and she clinically improved, she was thought to be colonized. She was continued on fludrocortisone for h/o orthostatic hypotension, however, she was noted t
[2021-11-28 14:17] LABS: EDCOVIDSCREEN Negative (Negative)
[2021-11-28 14:43] VITALS: BP 183/71; PULSE 65; TEMP 36.6; O2SAT 97
== END 2021-11-28 18:47 ==
LOC: ANHED 16:31 → ANH3MED 18:44
PROVIDERS: Nurse Practitioner Family; Physician Assistant; Admitting Provider Internal Medicine; Emergency Provider General Practice; PCP Family Medicine; Visit Provider Nurse Practitioner Adult Health
DX: S09.90XA Unspecified injury of head, initial encounter (principal); W05.0XXA Fall from non-moving wheelchair, initial encounter; N30.90 Cystitis, unspecified without hematuria; B96.29 Other Escherichia coli [E. coli] as the cause of diseases classified elsewhere; Z99.3 Dependence on wheelchair; I95.1 Orthostatic hypotension; G31.89 Other specified degenerative diseases of nervous system; D69.6 Thrombocytopenia, unspecified; F41.9 Anxiety disorder, unspecified; R53.1 Weakness; R27.0 Ataxia, unspecified; G96.9 Disorder of central nervous system, unspecified; R51.9 Headache, unspecified; M54.2 Cervicalgia; Z20.822 Contact with and (suspected) exposure to COVID-19; D64.9 Anemia, unspecified; Z86.16 Personal history of COVID-19; Z86.718 Personal history of other venous thrombosis and embolism; E78.5 Hyperlipidemia, unspecified; R00.1 Bradycardia, unspecified; K21.9 Gastro-esophageal reflux disease without esophagitis; I10 Essential (primary) hypertension; R63.0 Anorexia; Z68.34 Body mass index [BMI] 34.0-34.9, adult; Z79.891 Long term (current) use of opiate analgesic; Z79.899 Other long term (current) drug therapy
CPT/HCPCS: 36415; 51701; 70450; 71045; 72125; 80048; 80053; 81001; 83605; 83735; 84484; 85025; 85027; 85610; 85730; 87077; 87086; 87147; 87181; 87186; 87426; 93005; 94762; 96361; 96365; 97161; 97165; 99285; A9270; C9803; G0378; J0360; J0696; J7030; J7120; U0003; U0005

== ENCOUNTER 2022-11-04 10:09 | Inpatient (IN) | payer MEDICARE, MEDICAID, SELFPAY ==
[2022-11-04] VITALS (28 sets, daily range): BP systolic 145–218; BP diastolic 76–98; PULSE 53–63; RESP 12–20; TEMP 36.1–36.4; O2SAT 94–100; BMI 37.5
--- NOTE | 2022-11-04 | ECHO_ITS ---
Patient Info Name: Ana Stewart Age: 77 years : 1945 Gender: Female Ht: 60 in Wt: 177 lbs BSA: 1.88 m2 HR: 56 bpm BP: 183 / 68 mmHg Heart Rhythm: Sinus Rhythm Technical Quality: Fair Exam Date: 11/04/2022 4:24 PM Exam Location: [facility] Patient Status: Outpatient Admit Date: 11/04/2022 Staff Ordering Physician: Aliya Paredes PA-C [place] Reporter: Cinthya Rod RDCS Attending Provider: Narcisa Morrison MD Referring Physician: Reggie URBANO; Exam Type: CA echo dop color flow w con Study Info Indications - abdominal distension, orthopnea, BLE Complete two-dimensional, color flow and Doppler transthoracic echocardiogram is performed with contrast to opacify the left ventricle and to improve the deliniation of the left ventricle endocardial borders. Contrast/Agitated Saline Contrast/Ag. Saline: Definity Amount: 2.00 ml Administered By: Cinthya Rod RDCS Existing IV Access: Yes IV Access Condition: patent with no signs of infiltration Summary 1. Left ventricular chamber dimension is normal. 2. Left ventricular systolic function is normal, estimated at >70%. 3. There is mildly increased left ventricular wall thickness. 4. The left ventricular diastolic function is grade I diastolic dysfunction. 5. Right ventricular systolic function is normal. 6. There is trivial pericardial effusion. 7. No significant valvular disease. Left Ventricle Left ventricular chamber dimension is normal. Left ventricular systolic function is normal, estimated at >70%. There is mildly increased left ventricular wall thickness. The left ventricular diastolic function is grade I diastolic dysfunction. Right Ventricle Right ventricular chamber dimension is normal. Right ventricular systolic function is normal. Left Atria Left atrial chamber dimension is normal. Right Atria Right atrial chamber dimension is normal. Atrial Septum Intact interatrial septum visualized by color flow imaging. Aortic Valve The aortic valve is not well visualized. There is no aortic valve stenosis. There is no aortic valve regurgitation. Pulmonic Valve The pulmonic valve is not well visualized. Mitral Valve There is no mitral valve regurgitation. Tricuspid Valve There is trace tricuspid valve regurgitation. Pericardium/Pleural There is trivial pericardial effusion. Inferior Vena Cava Inferior vena cava is not well visualized. Aorta The aortic root size at the sinus of Valsalva is normal. Left Ventricular Outflow Tract Name Value Normal LVOT 2D LVOT Diameter 2.00 cm LVOT Doppler LVOT Peak Gradient 3 mmHg LVOT Mean Gradient 1 mmHg LVOT VTI 19.19 cm LVOT VTI/AV VTI Ratio 0.65 LVOT Stroke Volume 60.15 ml LVOT CO 3.54 l/min LVOT CI 1.88 L/min/m2 Pulmonic Valve Name Value Normal
--- NOTE | ~2022-11-04 | CT_ITS ---
EXAMINATION: CT abdomen pelvis wo con DATE: 11/04/2022 12:28 INDICATION: Epigastric pain TECHNIQUE: Computed tomography (CT) of the abdomen and pelvis was performed without intravenous contr ast. The dose-length product (DLP) was 988.61 mGy-cm. Automated exposure control and iterative recons truction technique were employed. COMPARISON: 09/03/2021 FINDINGS: There is mild atelectasis of the visualized lung bases. There appears to be an area of panel coverer mirna rounded atelectasis of the left lower lobe posteriorly. The heart size is normal. The gallbladder is surgically absent. There is mild enlargement of the common bile duct and central intrahepatic karlene ts which is likely due to post cholecystectomy state. There is a 3.5 x 2.7 cm cyst of the right hepat ic lobe. The pancreas, spleen, and adrenal glands are normal. There is cortical scarring of the left kidney. There is a 2 mm nonobstructing stone of the right kidney. No pathologically enlarged abdomina l or pelvic lymph nodes are identified. The appendix is normal. No free intraperitoneal gas or eviden ce of bowel obstruction. There is circumferential wall thickening of the urinary bladder. A small juany unt of gas is present in the urinary bladder. IMPRESSION: 1. Circumferential wall thickening of the urinary bladder which could reflect cystitis. Reviewed, dictated and finalized at location B. IMPRESSION: 1. Circumferential wall thickening of the urinary bladder which could reflect c ystitis.
--- NOTE | ~2022-11-04 | US_ITS ---
EXAMINATION: US venous doppler [facility] DATE: 11/04/2022 12:50 INDICATION: Bilateral lower limb pain and swelling TECHNIQUE: Grayscale ultrasound images without and with compression and Doppler ultrasound images of the bilateral lower extremity veins were obtained. COMPARISON: None. FINDINGS: The visualized portions of right common femoral vein, profunda (deep) femoral vein, femoral vein, pop liteal vein, posterior tibial veins, peroneal veins, gastrocnemius vein and greater saphenous vein ou tflow are patent. The visualized portions of left common femoral vein, profunda femoral vein, femoral vein, popliteal v ein, posterior tibial veins, peroneal veins, gastrocnemius vein and greater saphenous vein outflow ar e patent. IMPRESSION: 1. No deep venous thrombosis in either lower limb. Reviewed, dictated and finalized at location A.
--- NOTE | ~2022-11-04 | XR_ITS ---
EXAMINATION: XR chest 1V INDICATION: Shortness of breath and weakness TECHNIQUE: AP view of the chest is obtained. COMPARISON: 11/24/2021 FINDINGS: There are chronic airspace opacities of the left lung base, likely atelectasis. There is a small, chronic left pleural effusion. No pneumothorax is identified. The heart size is normal. The pr eviously described nodule of the right midlung zone is less apparent than on comparison examinations. IMPRESSION: 1. Chronic left basilar airspace opacity, likely atelectasis. 2. Chronic small left pleural effusion. Reviewed, dictated and finalized at location B.
[2022-11-04 10:41] LABS: Basophils Percent Auto 0.6 % (0.2-1.2); Eosinophils Absolute Auto 0.1 K/mm3 (0-0.3); Eosinophils Percent Auto 2.3 % (0-4.4); Hematocrit 38.8 % (37.0-47.0); Hemoglobin 13.1 g/dL (12.0-15.0); Immature Granulocyte Absolute 0.01 K/mm3 (0.00-0.031); Immature Granulocyte Percent A 0.3 % (0-0.5); Lymphocytes Absolute Auto 0.81 K/mm3 (0.9-3.2); Lymphocytes Percent Auto 23.5 % (18.3-44.2); Mean Corpuscular HGB Conc 33.8 g/dl (32-36); Mean Corpuscular Hemoglobin 32.8 pg (26-34); Mean Platelet Volume 9.4 fl (7.4-10.4); Monocytes Absolute Auto 0.3 K/mm3 (0.1-0.6); Neutrophils Absolute Auto 2.2 K/mm3 (1.3-6.7); Neutrophils Percent Auto 64.3 % (45.5-73.1); Platelet Count Result 101 k/mm3 (150-375); Red Cell Distribution Width 12.6 % (11.5-14.5); White Blood Count 3.5 K/mm3 (4.5-10.0)
[2022-11-04 10:51] LABS: Alanine Aminotransferase 25 U/L (6-35); Albumin Level 3.9 g/dL (3.5-5.1); Alkaline Phosphatase 103 U/L (38-126); Anion Gap 6 mmol/L (8-16); Aspartate Amino Transferase 33 U/L (14-36); Bilirubin,Total 1.2 mg/dL (0.2-1.3); Blood Urea Nitrogen 22 mg/dL (7-17); Calcium 8.9 mg/dL (8.4-10.2); Carbon Dioxide 24 mmol/L (22-30); Chloride 110 mmol/L (98-107); Estimated CRCL calculation 36 ml/min; Estimated Glomerular Filt Rate 48; Glucose 130 mg/dL (65-110); Lipase 64 U/L (23-300); Potassium 4.1 mmol/L (3.4-5.0); Sodium 140 mmol/L (137-145)
[2022-11-04 11:42] LABS: Appearance Urine Turbid (Clear); Bacteria Urine 4+ /hpf; Bilirubin Urine Negative (Negative); Blood Urine Negative (Negative); Color Urine Yellow (Yellow); Glucose Urine UA Negative (Negative); Ketones Urine Negative (Negative); Leukocyte Esterase Ur 2+ LEU/UL (Negative); Nitrate Urine Negative (Negative); Non Pathogenic Casts 0-2; Protein Urine Negative (Negative); RBC Urine 0-2 /hpf (0-2); Specific Grav Ur 1.015 (1.001-1.035); Squamous Epithelial Cell Urine Occasional /hpf (Few); WBC Urine >100 /hpf
[2022-11-04 11:50] LABS: Add Urine Microscopic? YES
--- NOTE | 2022-11-04 12:08 | ECG_ITS ---
Measurements Intervals [place] Rate: 53 P: 16 DE: 194 QRS: 23 QRSD: 85 T: 31 QT: 470 QTc: 445 Interpretive Statements SINUS BRADYCARDIA BORDERLINE T WAVE ABNORMALITY- ANTERIOR LEADS BORDERLINE ECG COMPARED TO ECG 11/24/2021 16:05:01 NO SIGNIFICANT CHANGES Electronically Signed On 11-04-2022 14:38:10 CDT by Nnamdi Liu D.O.
--- NOTE | 2022-11-04 12:18 | ED.ABDPAIN ---
HPI - Abdominal Pain General Chief Complaint: Abdominal Pain <Aliya Paredes PA-C - Last Filed: 11/04/22 14:47> Stated Complaint: Abd pain & distention <Aliya Paredes PA-C - Last Filed: 11/04/22 14:47> Time Seen by Provider: 11/04/22 11:16 <Aliya Paredes PA-C - Last Filed: 11/04/22 14:47> History of Present Illness HPI narrative: 77-year-old female with history of thrombocytopenia, hyperlipidemia, GERD, and dysphagia reports for evaluation for multiple complaints. Patient is reporting for epigastric abdominal pain that she describes as a dull ache for several weeks. The pain does not radiate anywhere. She reports associated abdominal distention and constipation. States for the past few weeks she has been having small frequent soft bowel movements that are small in caliber and feels like she has not fully been able to empty her colon. She states when she drinks a small amount of water, she has early satiety. Denies history of gastric cancer or family history of gastric cancer. She does report history of what sounds like esophageal strictures resulting in dilation 3 times. Last EGD was 10 years ago. She is also reporting shortness of breath and feels like she is having difficulty taking a deep breath. She reports associated orthopnea and bilateral lower extremity edema. She reports she has had bilateral lower extremity edema for the past year, worsening over the past few weeks along with pain in her calves. She is also complaining of an intermittent cough that occurs when laying down for the past week, it is nonproductive. She denies history of VTE. Denies fever, body aches, chills, hematuria, dysuria, melena or hematochezia, chest pain. She does report her urine has been dark the past few days. States she has been treated for UTI many times in the past few months, she just finished an antibiotic 3 days ago for a UTI. <Aliya Paredes PA-C - Last Filed: 11/04/22 14:47> Related Data Home Medications: Home Medications Medication Instructions Recorded Confirmed ergocalciferol (vitamin D2) 50,000 50,000 unit PO WEEKLY 02/16/19 11/24/21 unit tablet fluticasone propionate 50 2 spray intranasal DAILY PRN 02/16/19 11/24/21 mcg/actuation nasal Allergy Symptoms spray,suspension (Flonase Allergy Relief) omeprazole 20 mg capsule,delayed 40 mg PO DAILY 02/16/19 11/24/21 release pravastatin 20 mg tablet 20 mg PO QHS 02/16/19 11/24/21 trazodone 50 mg tablet 50 mg PO HS 05/25/19 11/24/21 gabapentin 300 mg capsule 300 mg PO TID 02/15/20 11/24/21 mirabegron 25 mg tablet,extended 25 mg PO DAILY 02/15/20 11/24/21 release 24 hr (Myrbetriq) tramadol 50 mg tablet 50 mg PO Q6-8H PRN Pain 02/15/20 11/24/21 Fiber-Tabs 625 mg PO QAM 07/19/20 11/24/21 benzonatate 200 mg capsule 200 mg PO TID PRN Cough 11/24/21 11/24/21 clonazepam 1 mg tablet 1 mg PO QAM 11/24/21 11/24/21 cyanocobalamin (vitamin B-12) 1,000 mcg PO DAILY 11/24/21 11/24/21 1,000 mcg tablet (Vitamin B-12) docusate sodium 100 mg capsule 100 mg PO QAM 11/24/21 11/24/21 linaclotide 72 mcg capsule 72 mcg PO PRN PRN Constipation 11/24/21 11/24/21 (Linzess) <Aliya Paredes PA-C - Last Filed: 11/04/22 14:47> Allergies/Adverse Reactions: Allergies Allergy/AdvReac Type Severity Reaction Status Date / Time adhesive Allergy Unknown BLISTERS Verified 11/04/22 10:23 Iodinated Contrast Media Allergy Unknown Swelling Verified 11/04/22 10:23 <Aliya Paredes PA-C - Last Filed: 11/04/22 14:47> Review of Systems Review of Systems: CONSTITUTIONAL: Denies fever, chills EYES: Denies visual changes, redness, or discharge. ENT: Denies rhinorrhea, congestion, sore throat, or otalgia. CARDIOVASCULAR: Denies chest pain, palpitations, or edema. RESPIRATORY: See HPI GASTROINTESTINAL: See HPI GENITOURINARY: Denies dysuria or hematuria. SKIN: Denies rash or itching. MUSCULOSKELETAL: Denies back pain, joint pain, or myalgia. NEUROLOG
[2022-11-04 12:38] LABS: NT Pro B Type Natriuretic Pept 789 pg/mL (19.9-100)
[2022-11-04 12:39] LABS: Troponin I < 0.012 ng/mL (0.000-0.034)
[2022-11-04] MEDS: PERFLUTREN LIPID MICROSPHERES 1.5 ML VIAL DILUTED TO 10 ML TOTAL VOLUME IV PUSH (16:50)
--- NOTE | 2022-11-04 17:33 | IVDEFINITY ---
Prior to administration of IV Definity the patient was educated on the risks and benefits of the imaging enhancing agent including potential adverse side effects. The patient verbalized understanding. Allergies were verified. No exclusion criteria were identified and at least one of the following inclusion criteria were met: 1) physician request, 2) patient technically difficult to image (per the [place] [employer] guidelines of two or more segments not discernable within the apical view), or 3) questionable left ventricular function. ?
--- NOTE | 2022-11-04 19:32 | ADMGEN ---
This patient, Ana Stewart, was admitted to Medical Room 254-01. Patient/family oriented to hospital policies and general routines including ID bracelet, bed and alarms, visiting hours, pain management, procedures, bathroom and other care routines, personal items, smoking policy, room service/diet, and visiting hours. Information on how to activate the Rapid Response Team has been discussed. Patient/Family are encouraged to report perceived risks to care and to ask questions if they do not understand what they are told or what they should do.
--- NOTE | 2022-11-04 21:20 | PM.IMHP ---
H&P: HPI History of Present Illness Date/Time: 11/04/22 20:30 Chief Complaint: Abdominal pain. Narrative: This is a 77-year-old female with history of hypertension, hyperlipidemia, GERD, DVT, overactive bladder, and unspecified neuromuscular disease (she has not been able to walk for 15 years) who presented to the emergency department via EMS from her assisted living facility for evaluation of abdominal pain. The patient provides the following history. She reports dull, aching epigastric discomfort which is been ongoing for several weeks associated with abdominal distension and constipation. In fact she reports that she has not had a good bowel movement for several months. The last few weeks she reports passing small amounts of small caliber stool frequently and she feels as though she is unable to fully evacuate her colon. She also endorses early satiety. About 10 years ago she had an EGD at which time she reports having esophageal strictures which required dilatation on 3 separate occasions. She has not had any issues with dysphagia and denies concerns for aspiration. GERD symptoms have been stable. She denies history of peptic ulcers. No history of pancreatitis. Her gallbladder has been removed. She has not noticed any blood or mucus in the stool. Appetite is not been good. She denies vomiting. She has increasing edema in her ankles and is worried that her abdominal discomfort and bloating may be related to the swelling. She has not had chest pain, orthopnea, or paroxysmal nocturnal dyspnea. Her labs were pretty unremarkable. Urinalysis is concerning for possible UTI and CT of the abdomen pelvis showed findings of cystitis. She received a dose of ceftriaxone in the emergency department and she is being admitted in this setting for GI consultation as she did not feel comfortable going home until she figures out why she is having this abdominal bloating and discomfort. Review of Systems Review of Systems: Twelve systems were reviewed. She denies fever and sweats. Reports that she is cold all the time. No recent cold or flu symptoms. No sick contacts. She denies chest pain and shortness of breath. No cough. No significant dysuria. She does urinate quite frequently however. She denies orthopnea. Transfers with a slide board. No recent falls. Except as documented, all other systems were reviewed and are negative. [facility] Past Medical History Medical History (Updated 11/05/22 @ 16:45 by Fatmata Ba PA-C) Alternating constipation and diarrhea Anemia Anxiety disorder Ataxia COVID-19 virus infection Gastro-esophageal reflux History of heparin-induced thrombocytopenia Hyperlipidemia Hypotension On midodrine Orthostatic hypotension Urinary tract infection Vitamin A deficiency Wheelchair dependence Surgical History Surgical History H/O bilateral cataract extraction H/O: hysterectomy Hx of cholecystectomy Family History Family History Sibling Patient's sister is in good health Patient's brother is in good health Mother Family history of malignant neoplasm of ovary, Onset Age: 32 Patient's mother is Father Patient's father is Acute myocardial infarction Social History Social History (Updated 11/05/22 @ 16:45 by Fatmata Ba PA-C) Social History: Surrogate medical decision maker: Galileo Huber, spouse. Code status: Full code. Smoking status: Never smoker Second hand tobacco smoke exposure: No Alcohol intake: never Substance use: never Substance use type: does not use Lack of Transportation: No Lack of Food: Never True Current Housing: I Have Housing Concerned About Future Housing: No Difficulty Paying Gas/Electric Bills: No Difficulty Paying for Meds: No Currently Unemployed: No Education: High School Diploma/GED Difficu
[2022-11-04] MEDS: traMADol HCL (*CRX) 50 MG TABLET PO (23:32)
[2022-11-04] MEDS: traZODone HCL 50 MG TABLET PO (23:33)
[2022-11-04] MEDS: PRAVASTATIN SODIUM 20 MG TABLET PO (23:33)
[2022-11-05] VITALS (10 sets, daily range): BP systolic 136–187; BP diastolic 53–89; PULSE 57–66; RESP 19–20; TEMP 36.1–36.4; O2SAT 95–96
[2022-11-05] MEDS: GABAPENTIN 300 MG CAPSULE PO (01:34)
[2022-11-05 05:50] LABS: Hematocrit 37.3 % (37.0-47.0); Hemoglobin 12.4 g/dL (12.0-15.0); Immature Platelet Fraction Pct 1.2 % (0.9-11.2); Mean Corpuscular HGB Conc 33.2 g/dl (32-36); Mean Corpuscular Volume 99.2 fl (80-100); Platelet Count Result 101 k/mm3 (150-375); Red Blood Count 3.76 M/mm3 (4.2-5.4); Red Cell Distribution Width 12.6 % (11.5-14.5); White Blood Count 3.2 K/mm3 (4.5-10.0)
[2022-11-05 05:58] LABS: Anion Gap 7 mmol/L (8-16); Blood Urea Nitrogen 19 mg/dL (7-17); Calcium 8.7 mg/dL (8.4-10.2); Carbon Dioxide 24 mmol/L (22-30); Chloride 108 mmol/L (98-107); Estimated CRCL calculation 46 ml/min; Estimated Glomerular Filt Rate > 60; Glucose 104 mg/dL (65-110); Potassium 3.6 mmol/L (3.4-5.0); Sodium 139 mmol/L (137-145)
[2022-11-05] MEDS: DOCUSATE SODIUM 100 MG CAPSULE PO (09:31)
[2022-11-05] MEDS: FLUDROCORTISONE ACETATE 0.1 MG TABLET PO (09:31)
[2022-11-05] MEDS: GABAPENTIN 300 MG CAPSULE 600 MG PO ×3 (09:31→16:33)
[2022-11-05] MEDS: PANTOPRAZOLE 40 MG TABLET PO ×2 (09:31→16:33)
[2022-11-05] MEDS: clonazePAM (*CRX) 0.5 MG TABLET 1 MG PO (09:31)
[2022-11-05] MEDS: MICONAZOLE NITRATE 2% CREAM 30 GM TUBE 1 APPLIC TOPICAL ×2 (09:32→16:33)
[2022-11-05] MEDS: polyethylene glycoL 3350 17 GM POWD.PACK PO (09:32)
--- NOTE | 2022-11-05 13:11 | PM.IMPN ---
Progress Note: A&P Assessment and Plan (1) Abdominal pain: Code(s): R10.9 - Unspecified abdominal pain Status: Acute Assessment and Plan: Abdominal bloating and distension may be related to constipation however she does not look significantly constipated on her CT. She also endorses early satiety and reports having a history of esophageal dilatation however she denies dysphagia. She has no history of peptic ulcers and denies melena. She has not had any vomiting. Continue PPI for now and monitor. Consider GI consult if symptoms do not improve. 11/05 Abdominal bloating improved. (2) Lower extremity edema: Code(s): R60.0 - Localized edema Status: Acute Assessment and Plan: She has limited mobility and with her lower extremity edema, Venous Doppler ultrasounds negative for DVT. ProBNP is only mildly elevated echocardiogram has been ordered. (3) Cystitis: Code(s): N30.90 - Cystitis, unspecified without hematuria Status: Acute Assessment and Plan: CT did show findings of cystitis which may be causing some of her symptoms. She has been started on ceftriaxone Urine culture pending Adjust antibiotics to culture results. (4) Thrombocytopenia: Code(s): D69.6 - Thrombocytopenia, unspecified Status: Acute Assessment and Plan: She has chronic thrombocytopenia which is stable and will be monitored. Subjective Date/time seen: 11/05/22 13:11 Interval history: Patient states that her abdominal bloating has decreased from admission. She was started on pantoprazole so maybe this has something to do with it. CT did not reveal any cause of abdominal discomfort. She states that her stools have changed in caliber and her last colonoscopy was approximately 10-15 years prior. May need outpatient colonoscopy. She denies any urinary symptoms. She has not had any melena, hematochezia, nausea, vomiting, chest pain or shortness of breath. Exam Narrative: GENERAL: Comfortable, no acute distress HENMT: moist mucous membranes EYES: EOM intact b/l NECK: no lymphadenopathy RESPIRATORY: clear to auscultation CARDIO: RRR GI: soft, nontender, bowel sounds present SKIN: no rashes Objective Data Vital Signs Vital Signs: Vital Signs - 24 hr 11/04/22 13:22 11/04/22 13:31 11/04/22 14:13 Temperature Pulse Rate 53 L 56 L 57 L Respiratory Rate 12 20 15 Blood Pressure 197/88 H Pulse Oximetry 99 97 100 Oxygen Delivery 11/04/22 14:18 11/04/22 14:39 11/04/22 15:02 Temperature Pulse Rate 56 L 57 L 53 L Respiratory Rate 20 16 14 Blood Pressure Pulse Oximetry 98 100 100 Oxygen Delivery 11/04/22 15:15 11/04/22 15:17 11/04/22 15:30 Temperature Pulse Rate 56 L 55 L 57 L Respiratory Rate 19 15 19 Blood Pressure 214/88 H Pulse Oximetry 99 96 Oxygen Delivery 11/04/22 15:31 11/04/22 15:45 11/04/22 15:46 Temperature Pulse Rate 55 L 57 L 59 L Respiratory Rate 17 18 15 Blood Pressure 201/81 H 218/92 H Pulse Oximetry 97 96 98 Oxygen Delivery 11/04/22 16:01 11/04/22 19:39 11/04/22 19:29 Temperature 97 F L Pulse Rate 61 60 Respiratory Rate 17 20 Blood Pressure 151/98 H Pulse Oximetry 98 99 Oxygen Delivery Room Air 11/04/22 20:00 11/05/22 00:00 11/05/22 04:02 Temperature 96.9 F L Pulse Rate 59 L 62 63 Respiratory Rate 20 Blood Pressure 187/71 H Pulse Oximetry 96 Oxygen Delivery 11/05/22 04:00 11/05/22 05:14 Temperature Pulse Rate 58 L Respiratory Rate Blood Pressure 155/70 H Pulse Oximetry Oxygen Delivery Intake/Output Intake/Output: Intake & Output 11/02/22 11/03/22 11/04/22 11/05/22 23:59 23:59 23:59 23:59 Intake Total 50 750 Output Total 300 Balance 50 450 Meds/Results Medications: Active Medications Generic Name Dose Route Start Last Admin Trade Name Freq PRN Reason Stop Dose Admin Albuterol 1 puf
[2022-11-05] MEDS: calcium polycarbophiL 625 MG TABLET PO (13:21)
--- NOTE | 2022-11-05 13:27 | WPDGICN ---
Assessment and Plan Assessment and plan (1) Abdominal distension: Code(s): R14.0 - Abdominal distension (gaseous) Status: Acute Assessment and Plan: improved but not gone will repeat EGD tomorrow (previous esophageal ring that was dilated)- having dysphagia again (2) Abdominal pain: Code(s): R10.9 - Unspecified abdominal pain Status: Acute Assessment and Plan: will assess with egd and colonoscopy (last one about 15 years ago, she was unable to repeat since she got neurological dysfunction and could not get help for bowel prep at assisted living facility) (3) Cystitis: Code(s): N30.90 - Cystitis, unspecified without hematuria Status: Acute Assessment and Plan: on abx (4) Dysphagia: Code(s): R13.10 - Dysphagia, unspecified Status: Acute Assessment and Plan: egd in am (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 Status: Acute (6) Pleural effusion: Code(s): J90 - Pleural effusion, not elsewhere classified Status: Acute (7) Alternating constipation and diarrhea: Code(s): R19.8 - Other specified symptoms and signs involving the digestive system and abdomen Status: Acute GI Consult Note Consult date/time: 11/05/22 13:27 Reason for consult: bloating, dysphagia HPI: Ana Stewart is a 77 year old female with 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 She is here because progressive dull, aching epigastric discomfort for last few weeks associated with abdominal distension and constipation. Lately had more issues having a complete stool evacuation with small caliber stool, also early satiety. Urinalysis showed possible UTI and CT of the abdomen pelvis showed findings of cystitis.?Also choking after eating certain meals like bread. Bloating was given her more difficulty breathing (had left thoracentesis last year), CXR showed atelectasis and small left pleural effusion. Review of Systems Constitutional: Constitutional: Denies chills Eyes: Eyes: Denies blurry vision ENT: Reports Normal hearing present Cardiovascular: Cardiovascular: Denies chest pain Respiratory: Respiratory: Reports dyspnea Gastrointestinal: Gastrointestinal: Reports abdominal pain and Reports constipation Genitourinary: Genitourinary: Denies hematuria Musculoskeletal: Musculoskeletal: Denies neck pain Integumentary/Breasts: Skin/Breast: Denies rash Neurologic: Denies Abnormal speech present Comments: h/o neuropathy Psychiatric: Psychiatric: Denies behavioral changes [facility] Past Medical History Medical History (Updated 11/05/22 @ 13:38 by Naresh Pelaez MD) Acute UTI Alternating constipation and diarrhea Anemia Anxiety disorder Ataxia Constipation COVID-19 virus infection Fracture of tibial shaft, right, closed Gastro-esophageal reflux History of heparin-induced thrombocytopenia Hyperlipidemia Hypotension Leg weakness, bilateral Orthostatic hypotension Tinea unguium Urinary tract infection Vitamin A deficiency Weakness Wheelchair dependence Surgical History Surgical History H/O bilateral cataract extraction H/O: hysterectomy Hx of cholecystectomy Family History Family History Sibling Patient's sister is in good health Patient's brother is in good health Mother Family history of malignant neoplasm of ovary, Onset Age: 32 Patient's mother is Father Patient's father is Acute m
[2022-11-05] MEDS: BISACODYL 5 MG TABLET EC 20 MG PO (18:06)
[2022-11-05] MEDS: polyethylene glycoL 3350 238 GM BOTTLE PO (18:06)
[2022-11-05] MEDS: PRAVASTATIN SODIUM 20 MG TABLET PO (20:45)
[2022-11-05] MEDS: traZODone HCL 50 MG TABLET PO (20:45)
[2022-11-06] VITALS (14 sets, daily range): BP systolic 90–150; BP diastolic 43–69; PULSE 59–68; RESP 16–20; TEMP 35.9–36.7; O2SAT 96–99
[2022-11-06] MEDS: MAGNESIUM CITRATE 300 ML BTL PO (03:45)
[2022-11-06 06:21] LABS: Basophils Percent Auto 0.6 % (0.2-1.2); Eosinophils Absolute Auto 0.1 K/mm3 (0-0.3); Eosinophils Percent Auto 2.8 % (0-4.4); Hematocrit 36.8 % (37.0-47.0); Hemoglobin 12.3 g/dL (12.0-15.0); Immature Granulocyte Absolute 0.01 K/mm3 (0.00-0.031); Immature Granulocyte Percent A 0.3 % (0-0.5); Immature Platelet Fraction Pct 1.6 % (0.9-11.2); Lymphocytes Absolute Auto 0.79 K/mm3 (0.9-3.2); Lymphocytes Percent Auto 21.8 % (18.3-44.2); Mean Corpuscular HGB Conc 33.4 g/dl (32-36); Mean Corpuscular Hemoglobin 32.5 pg (26-34); Mean Corpuscular Volume 97.4 fl (80-100); Mean Platelet Volume 9.7 fl (7.4-10.4); Monocytes Absolute Auto 0.4 K/mm3 (0.1-0.6); Monocytes Percent Auto 11.3 % (2.6-8.5); Neutrophils Absolute Auto 2.3 K/mm3 (1.3-6.7); Neutrophils Percent Auto 63.2 % (45.5-73.1); Platelet Count Result 98 k/mm3 (150-375); Red Blood Count 3.78 M/mm3 (4.2-5.4); Red Cell Distribution Width 12.6 % (11.5-14.5); White Blood Count 3.6 K/mm3 (4.5-10.0)
[2022-11-06 06:33] LABS: Alanine Aminotransferase 22 U/L (6-35); Albumin Level 3.8 g/dL (3.5-5.1); Alkaline Phosphatase 99 U/L (38-126); Anion Gap 8 mmol/L (8-16); Aspartate Amino Transferase 28 U/L (14-36); Blood Urea Nitrogen 18 mg/dL (7-17); Calcium 8.9 mg/dL (8.4-10.2); Carbon Dioxide 22 mmol/L (22-30); Chloride 105 mmol/L (98-107); Estimated CRCL calculation 46 ml/min; Estimated Glomerular Filt Rate > 60; Glucose 131 mg/dL (65-110); Potassium 3.6 mmol/L (3.4-5.0); Sodium 135 mmol/L (137-145)
[2022-11-06] MEDS: DOCUSATE SODIUM 100 MG CAPSULE PO (08:08)
[2022-11-06] MEDS: polyethylene glycoL 3350 17 GM POWD.PACK PO (08:08)
[2022-11-06] MEDS: clonazePAM (*CRX) 0.5 MG TABLET 1 MG PO (08:08)
[2022-11-06] MEDS: GABAPENTIN 300 MG CAPSULE 600 MG PO ×3 (08:08→16:42)
[2022-11-06] MEDS: MICONAZOLE NITRATE 2% CREAM 30 GM TUBE 1 APPLIC TOPICAL ×2 (08:15→16:42)
--- NOTE | 2022-11-06 10:20 | PC.NURSE ---
To GI Lab via [facility]. Report given to Luciano LONG.
[2022-11-06] MEDS: LACTATED RINGERS 1,000 ML 150 ML IV CONT (10:37)
--- NOTE | 2022-11-06 10:49 | WPDANESEPPF ---
Anes - Initial Pre Proc Eval Procedure: Operation Date: 11/06/22 12:30 Proposed Procedures p Esophagogastroduodenoscopy & Colonoscopy - Naresh Pelaez MD Date/Time: 11/06/22 10:49 Surgeon: Narcisa Morrison MD Pre Op Diagnosis: UTI/Abdominal Distension Patient Data Age: 77 Gender: F Height: 1.52 m Weight: 88.1 kg Last Vital Signs Temp 96.9 F L 11/06/22 10:39 Pulse 66 11/06/22 10:39 Resp 20 11/06/22 10:39 BP 104/44 L 11/06/22 10:39 Pulse Ox 99 11/06/22 10:39 O2 Del Method Room Air 11/06/22 10:39 Allergies Allergy/AdvReac Type Severity Reaction Status Date / Time adhesive Allergy Unknown BLISTERS Verified 11/06/22 10:38 Iodinated Contrast Media Allergy Unknown Swelling Verified 11/06/22 10:38 Home Medications Medication Instructions Recorded Confirmed Type ergocalciferol (vitamin D2) 50,000 50,000 unit PO WEEKLY 02/16/19 11/04/22 History unit tablet fluticasone propionate 50 2 spray intranasal DAILY PRN 02/16/19 11/04/22 History mcg/actuation nasal Allergy Symptoms spray,suspension (Flonase Allergy Relief) omeprazole 20 mg capsule,delayed 40 mg PO DAILY 02/16/19 11/04/22 History release pravastatin 20 mg tablet 20 mg PO QHS 02/16/19 11/04/22 History trazodone 50 mg tablet 50 mg PO HS 05/25/19 11/04/22 History gabapentin 300 mg capsule 600 mg PO TID 02/15/20 11/04/22 History tramadol 50 mg tablet 50 mg PO Q6-8H PRN Pain 02/15/20 11/04/22 History Fiber-Tabs 625 mg PO QAM 07/19/20 11/04/22 History fludrocortisone 0.1 mg tablet 0.1 mg PO DAILY #30 tabs 07/22/20 11/04/22 Rx albuterol sulfate 90 mcg/actuation 1 inh inhalation QID PRN shortness 09/07/21 11/04/22 Rx aerosol inhaler of breath or wheezing #6.7 grams polyethylene glycol 3350 17 gram 17 g PO DAILY #10 ea 09/07/21 11/04/22 Rx oral powder packet (Miralax) clonazepam 1 mg tablet 1 mg PO QAM 11/24/21 11/04/22 History docusate sodium 100 mg capsule 100 mg PO QAM 11/24/21 11/04/22 History linaclotide 72 mcg capsule 72 mcg PO DAILY PRN Constipation 11/24/21 11/04/22 History (Linzess) nystatin 100,000 unit/gram topical 1 applic topical BID #15 grams 11/28/21 11/04/22 Rx cream omeprazole 20 mg capsule,delayed 20 mg PO DAILY #30 caps 11/28/21 11/04/22 Rx release trospium 20 mg tablet 20 mg PO BID 11/04/22 11/04/22 History Laboratory Tests 11/06/22 05:35 WBC 3.6 L K/mm3 (4.5-10.0) RBC 3.78 L M/mm3 (4.2-5.4) Hgb 12.3 g/dL (12.0-15.0) Hct 36.8 L % (37.0-47.0) MCV 97.4 fl (80-100) MCH 32.5 pg (26-34) MCHC 33.4 g/dl (32-36) RDW 12.6 % (11.5-14.5) Plt Count 98 L k/mm3 (150-375) MPV 9.7 fl (7.4-10.4) Immature Gran % (Auto) 0.3 % (0-0.5) Neut % (Auto) 63.2 % (45.5-73.1) Lymph % (Auto) 21.8 % (18.3-44.2) Mcculloch % (Auto) 11.3 H % (2.6-8.5) Eos % (Auto) 2.8 % (0-4.4) Baso % (Auto) 0.6 % (0.2-1.2) Lymph # (Auto) 0.79 L K/mm3 (0.9-3.2) Mcculloch # (Auto) 0.4 K/mm3 (0.1-0.6) Eos # (Auto) 0.1 K/mm3 (0-0.3) Baso # (Auto) 0.0 K/mm3 (0.0-0.1) Abs Immat Gran (auto) 0.01 K/mm3 (0.00-0.031) Absolute Neuts (auto) 2.3 K/mm3 (1.3-6.7) Absolute Nucleated RBC 0.0 K/mm3 (0.0-0.012) Nucleated RBC % 0.0 % (0.0-0.2) % Immature Plt Fraction 1.6 % (0.9-11.2) Sodium 135 L mmol/L (137-145) Potassium 3.6 mmol/L (3.4-5.0) Chloride 105 mmol/L (98-107) Carbon Dioxide 22 mmol/L (22-30) Anion Gap 8 mmol/L (8-16) BUN 18 H mg/dL (7-17) Creatinine 0.90 mg/dL (0.7-1.0) Estim Creat Clear Calc 46 ml/min Estimated GFR > 60 (59 - ) Glucose 131 H mg/dL (65-110) Calcium 8.9 mg/dL (8.4-10.2) Total Bilirubin 1.0 mg/dL (0.2-1.3) AST 28 U/L (14-36) ALT 22 U/L (6-35) Alkaline Phosphatase 99 U/L (38-126) Total Protein 7.0 g/dL (6.3-8.2) Albumin 3.8 g/dL (3.5-5.1) Patient hx anesthesi
--- NOTE | 2022-11-06 11:32 | SUR.OPER ---
EGD start 1135 end 1139, Colonoscopy start 1144
--- NOTE | 2022-11-06 12:34 | PC.NURSE ---
Returned from GI Lab via stretcher.
[2022-11-06] MEDS: GENTAMICIN SULFATE INJ 320 MG in DEXTROSE 5% 100 ML 100 MG IVPB (13:51)
--- NOTE | 2022-11-06 14:15 | P.PNIM_ITS ---
Progress Note: A&P Assessment and Plan (1) UTI (urinary tract infection): Qualifiers: Hematuria presence: without hematuria Urinary tract infection type: acute cystitis Qualified Code(s): N30.00 - Acute cystitis without hematuria Code(s): N39.0 - Urinary tract infection, site not specified Status: Acute Assessment and Plan: * UA appeared infectious * CT showed cystitis * Urine Cultures Ecoli * IV ceftriaxone changed to Gentamicin x 1 dose * trend urine output * consider fdc antibiotic for UTI prevention (2) Abdominal pain: Qualifiers: Abdominal location: epigastric Qualified Code(s): R10.13 - Epigastric pain Code(s): R10.9 - Unspecified abdominal pain Status: Acute Assessment and Plan: * Presented to the ED with complaints of epigastric pain, abdominal distension, and bloating * CT of the Abd/Pel does not indicate any acute findings to explain symptoms * She has no history of peptic ulcers and denies melena. * GI consulted * EGD and colonoscopy preformed and showed no acute findings * Continue PPI for now and monitor. * Seems to be improving * await further recommendations from GI (3) Lower extremity edema: Code(s): R60.0 - Localized edema Status: Acute Assessment and Plan: * Limited mobility and with her lower extremity edema * Venous Doppler ultrasounds? negative for DVT. * ProBNP is only mildly elevated * echocardiogram >70% grade 1 diastolic dysfunction. (4) Cystitis: Code(s): N30.90 - Cystitis, unspecified without hematuria Status: Acute Assessment and Plan: * CT did show findings of cystitis which may be causing some of her symptoms. * Continue Ceftriaxone * Urine culture grew E. Coli * Adjust antibiotics to culture results. (5) Thrombocytopenia: Code(s): D69.6 - Thrombocytopenia, unspecified Status: Acute Assessment and Plan: * Plt 98 today * Plt 101 at time of admission * Appears to be chronic * Baseline is 101-120 * Continue to trend * stable for now Time Spent With Patient Time: 41 minutes Time with patient: Greater than 35 minutes Subjective Date/time seen: 11/06/221414 Interval history: 11/06/221414 patient was lying in bed just got back from her colonoscopy EGD. She stated that she was really tired she did not get much sleep with the amount Of prep. Her daughter was present in the month given fresh is talked to her. It was noted the patient having multiple frequent UTIs. Inquired about a chronic antibiotic for prevention. currently she is denying any chest pain, shortness a breath, nausea, vomiting, diarrhea constipation. She does look pretty weak in pretty white will monitor for 1 more day. 11/05/22 13:11 Patient states that her abdominal bloating has decreased from admission. She was started on pantoprazole so maybe this has something to do with it. CT did not reveal any cause of abdominal discomfort. She states that her stools have changed in caliber and her last colonoscopy was approximately 10-15 years prior. May need outpatient colonoscopy. She denies any urinary symptoms. She has not had any melena, hematochezia, nausea, vomiting, chest pain or shortness of breath. 11/04/22 21:20 This is a 77-year-old female with history of hypertension, hyperlipidemia, GERD, DVT, overactive bladder, and unspecified neuromuscular disease (sh
--- NOTE | 2022-11-06 14:15 | PM.IMPN ---
Progress Note: A&P Assessment and Plan (1) UTI (urinary tract infection): Qualifiers: Hematuria presence: without hematuria Urinary tract infection type: acute cystitis Qualified Code(s): N30.00 - Acute cystitis without hematuria Code(s): N39.0 - Urinary tract infection, site not specified Status: Acute Assessment and Plan: UA appeared infectious CT showed cystitis Urine Cultures Ecoli IV ceftriaxone changed to Gentamicin x 1 dose trend urine output consider usp antibiotic for UTI prevention (2) Abdominal pain: Qualifiers: Abdominal location: epigastric Qualified Code(s): R10.13 - Epigastric pain Code(s): R10.9 - Unspecified abdominal pain Status: Acute Assessment and Plan: Presented to the ED with complaints of epigastric pain, abdominal distension, and bloating CT of the Abd/Pel does not indicate any acute findings to explain symptoms She has no history of peptic ulcers and denies melena. GI consulted EGD and colonoscopy preformed and showed no acute findings Continue PPI for now and monitor. Seems to be improving await further recommendations from GI (3) Lower extremity edema: Code(s): R60.0 - Localized edema Status: Acute Assessment and Plan: Limited mobility and with her lower extremity edema Venous Doppler ultrasounds? negative for DVT. ProBNP is only mildly elevated echocardiogram >70% grade 1 diastolic dysfunction. (4) Cystitis: Code(s): N30.90 - Cystitis, unspecified without hematuria Status: Acute Assessment and Plan: CT did show findings of cystitis which may be causing some of her symptoms. Continue Ceftriaxone Urine culture grew E. Coli Adjust antibiotics to culture results. (5) Thrombocytopenia: Code(s): D69.6 - Thrombocytopenia, unspecified Status: Acute Assessment and Plan: Plt 98 today Plt 101 at time of admission Appears to be chronic Baseline is 101-120 Continue to trend stable for now Time Spent With Patient Time: 41 minutes Time with patient: Greater than 35 minutes Subjective Date/time seen: 11/06/221414 Interval history: 11/06/221414 patient was lying in bed just got back from her colonoscopy EGD. She stated that she was really tired she did not get much sleep with the amount Of prep. Her daughter was present in the month given fresh is talked to her. It was noted the patient having multiple frequent UTIs. Inquired about a chronic antibiotic for prevention. currently she is denying any chest pain, shortness a breath, nausea, vomiting, diarrhea constipation. She does look pretty weak in pretty white will monitor for 1 more day. 11/05/22 13:11 Patient states that her abdominal bloating has decreased from admission. She was started on pantoprazole so maybe this has something to do with it. CT did not reveal any cause of abdominal discomfort. She states that her stools have changed in caliber and her last colonoscopy was approximately 10-15 years prior. May need outpatient colonoscopy. She denies any urinary symptoms. She has not had any melena, hematochezia, nausea, vomiting, chest pain or shortness of breath. 11/04/22 21:20 This is a 77-year-old female with history of hypertension, hyperlipidemia, GERD, DVT, overactive bladder, and unspecified neuromuscular disease (she has not been able to walk for 15 years) who presented to the emergency department via EMS from her assisted living facility for evaluation of abdominal pain. The patient provides the following history. She reports dull, aching epigastric discomfort which is been ongoing for several weeks associated with abdominal distension and constipation. In fact she reports that she has not had a good bowel movement for several months. The last few weeks she reports passing small amounts of small caliber stool fr
[2022-11-06] MEDS: PANTOPRAZOLE 40 MG TABLET PO (16:42)
[2022-11-06] MEDS: traMADol HCL (*CRX) 50 MG TABLET PO (19:23)
[2022-11-06] MEDS: traZODone HCL 50 MG TABLET PO (20:32)
[2022-11-06] MEDS: PRAVASTATIN SODIUM 20 MG TABLET PO (20:32)
[2022-11-07] VITALS: PULSE 66
[2022-11-07] MEDS: traMADol HCL (*CRX) 50 MG TABLET PO (02:05)
[2022-11-07 04:00] VITALS: PULSE 64
[2022-11-07 06:00] VITALS: BP 149/76; PULSE 54; RESP 18; TEMP 36.3; O2SAT 98
[2022-11-07 08:00] VITALS: PULSE 58
[2022-11-07 08:27] VITALS: PULSE 53; RESP 18; O2SAT 98
[2022-11-07 08:39] VITALS: O2SAT 94
--- NOTE | 2022-11-07 08:59 | WPDANESPN ---
Anes - Prog Note Post-Op Date/Time: 11/07/22 08:59 Cardiovascular status: normal Respiratory status: normal Airway patency: baseline Mental status: baseline Post-Op hydration status: normal Vital Signs: Last Vital Signs Temp 36.3 C L 11/07/22 06:00 Pulse 53 L 11/07/22 08:27 Resp 18 11/07/22 08:27 BP 149/76 H 11/07/22 06:00 Pulse Ox 94 11/07/22 08:39 O2 Del Method Room Air 11/07/22 08:39 Pain Score (VAS): 3/10 I/O: Intake & Output 11/06/22 11/07/22 11/07/22 23:59 07:59 15:59 Intake Total 120 Output Total 250 400 Balance -130 -400 Laboratory Tests 11/06/22 05:35 11/06/22 05:35 Microbiology 11/04/22 11:22 Clean Catch Midstream Urine Culture - Final Escherichia Coli Post-procedural complaints: none Patient Feedback: Patient satisfied with anesthetic care.
[2022-11-07] MEDS: clonazePAM (*CRX) 0.5 MG TABLET 1 MG PO (09:03)
[2022-11-07] MEDS: PANTOPRAZOLE 40 MG TABLET PO (09:03)
[2022-11-07] MEDS: FLUDROCORTISONE ACETATE 0.1 MG TABLET PO (09:03)
[2022-11-07] MEDS: FUROSEMIDE INJ 40 MG/4 ML VIAL IV PUSH (09:03)
[2022-11-07] MEDS: GABAPENTIN 300 MG CAPSULE 600 MG PO (09:03)
[2022-11-07] MEDS: MICONAZOLE NITRATE 2% CREAM 30 GM TUBE 1 APPLIC TOPICAL (09:04)
--- NOTE | 2022-11-07 10:15 | PM.DS ---
DS: Admitting Diagnosis Discharge Date 11/07/22 1015 Admitting Diagnosis UTI, gastritis DS: Discharge Diagnosis Discharge Diagnosis (1) UTI (urinary tract infection): Qualifiers: Hematuria presence: without hematuria Urinary tract infection type: acute cystitis Qualified Code(s): N30.00 - Acute cystitis without hematuria Code(s): N39.0 - Urinary tract infection, site not specified Status: Acute Assessment and Plan: UA appeared infectious CT showed cystitis Urine Cultures Ecoli IV ceftriaxone changed to Gentamicin x 1 dose trend urine output Start Cephalexin for prophylaxis (2) Abdominal pain: Qualifiers: Abdominal location: epigastric Qualified Code(s): R10.13 - Epigastric pain Code(s): R10.9 - Unspecified abdominal pain Status: Acute Assessment and Plan: Presented to the ED with complaints of epigastric pain, abdominal distension, and bloating CT of the Abd/Pel does not indicate any acute findings to explain symptoms She has no history of peptic ulcers and denies melena. GI consulted EGD and colonoscopy preformed and showed no acute findings Continue PPI for now and monitor. Seems to be improving await further recommendations from GI (3) Lower extremity edema: Code(s): R60.0 - Localized edema Status: Acute Assessment and Plan: Limited mobility and with her lower extremity edema Venous Doppler ultrasounds? negative for DVT. ProBNP is only mildly elevated echocardiogram >70% grade 1 diastolic dysfunction. (4) Cystitis: Code(s): N30.90 - Cystitis, unspecified without hematuria Status: Acute Assessment and Plan: CT did show findings of cystitis which may be causing some of her symptoms. Continue Ceftriaxone Urine culture grew E. Coli Adjust antibiotics to culture results. (5) Thrombocytopenia: Code(s): D69.6 - Thrombocytopenia, unspecified Status: Acute Assessment and Plan: Plt 98 today Plt 101 at time of admission Appears to be chronic Baseline is 101-120 Continue to trend stable for now (6) Gastritis: Qualifiers: Chronicity: acute Gastritis bleeding: without bleeding Gastritis type: unspecified gastritis Qualified Code(s): K29.00 - Acute gastritis without bleeding Code(s): K29.70 - Gastritis, unspecified, without bleeding Status: Acute Assessment and Plan: See above DS: Summary Hospital Course Hospital Course: this is a 77-year-old female with a past medical history of hypertension, hyperlipidemia, GERD, DVT, overactive bladder and brainstem degeneration who presented to the ED with complaints of abdominal pain. CT of the abdomen pelvis showed circumferential wall thickening of the urinary bladder however did not show any other abnormalities. GI was consulted for patient's ongoing murray with constipation / diarrhea. Patient went for EGD colonoscopy that did she does show gastritis. UA did appear infectious and did grow E coli. Patient was started on IV ceftriaxone which was then converted to IV gentamicin x1 dose. Venous Dopplers were performed for pain and swelling. It was noted that the patient did not have any DVTs noted. Chest x-ray showed airspace opacities and small left pleural effusion. Echo showed an EF of greater than 70% with grade 1 diastolic dysfunction. At this time patient is stable for discharge for labs and vital signs. Patient will be returning back to her assisted living. Currently she denies any chest pain, shortness a breath, nausea, vomiting, diarrhea constipation. Patient is updated with plan of care all questions were answered. Status at Discharge Functional status at discharge: wheelchair bound Overall status at discharge: patient is progressing back to baseline Time Spent with Patient Time attestation: Total time spent providing and
--- NOTE | 2022-11-07 10:15 | P.DS_ITS ---
DS: Admitting Diagnosis Discharge Date 11/07/22 1015 Admitting Diagnosis UTI, gastritis DS: Discharge Diagnosis Discharge Diagnosis (1) UTI (urinary tract infection): Qualifiers: Hematuria presence: without hematuria Urinary tract infection type: acute cystitis Qualified Code(s): N30.00 - Acute cystitis without hematuria Code(s): N39.0 - Urinary tract infection, site not specified Status: Acute Assessment and Plan: * UA appeared infectious * CT showed cystitis * Urine Cultures Ecoli * IV ceftriaxone changed to Gentamicin x 1 dose * trend urine output * Start Cephalexin for prophylaxis (2) Abdominal pain: Qualifiers: Abdominal location: epigastric Qualified Code(s): R10.13 - Epigastric pain Code(s): R10.9 - Unspecified abdominal pain Status: Acute Assessment and Plan: * Presented to the ED with complaints of epigastric pain, abdominal distension, and bloating * CT of the Abd/Pel does not indicate any acute findings to explain symptoms * She has no history of peptic ulcers and denies melena. * GI consulted * EGD and colonoscopy preformed and showed no acute findings * Continue PPI for now and monitor. * Seems to be improving * await further recommendations from GI (3) Lower extremity edema: Code(s): R60.0 - Localized edema Status: Acute Assessment and Plan: * Limited mobility and with her lower extremity edema * Venous Doppler ultrasounds? negative for DVT. * ProBNP is only mildly elevated * echocardiogram >70% grade 1 diastolic dysfunction. (4) Cystitis: Code(s): N30.90 - Cystitis, unspecified without hematuria Status: Acute Assessment and Plan: * CT did show findings of cystitis which may be causing some of her symptoms. * Continue Ceftriaxone * Urine culture grew E. Coli * Adjust antibiotics to culture results. (5) Thrombocytopenia: Code(s): D69.6 - Thrombocytopenia, unspecified Status: Acute Assessment and Plan: * Plt 98 today * Plt 101 at time of admission * Appears to be chronic * Baseline is 101-120 * Continue to trend * stable for now (6) Gastritis: Qualifiers: Chronicity: acute Gastritis bleeding: without bleeding Gastritis type: unspecified gastritis Qualified Code(s): K29.00 - Acute gastritis without bleeding Code(s): K29.70 - Gastritis, unspecified, without bleeding Status: Acute Assessment and Plan: * See above DS: Summary Hospital Course Hospital Course: this is a 77-year-old female with a past medical history of hypertension, hyperlipidemia, GERD, DVT, overactive bladder and brainstem degeneration who presented to the ED with complaints of abdominal pain. CT of the abdomen pelvis showed circumferential wall thickening of the urinary bladder however did not show any other abnormalities. GI was consulted for patient's ongoing murray with constipation / diarrhea. Patient went for EGD colonoscopy that did she does show gastritis. UA did appear infectious and did grow E coli. Patient was started on IV ceftriaxone which was then converted to IV gentamicin x1 dose. Venous Dopplers were performed for pain and swelling. It was noted that the patient did not have any DVTs noted. Chest x-ray showed airspace opacities and small left pleural effusion. Echo showed an EF of greater than 70% with grade 1 diastolic dysfunction. At thi
--- NOTE | 2022-11-07 10:55 | PC.NURSE ---
On 11/07/22, the student, [Erika Vallejo], provided care and completed [facility] documentation on this patient. I have reviewed the student's documentation and agree with the findings.
[2022-11-07 13:01] LABS: SARS-CoV-2 RNA PCR Negative (Negative)
== END 2022-11-07 14:00 | DRG 690 ==
LOC: ANHED 14:39 → ANH3MEDSUR 15:29 → ANH2MED 18:35
PROVIDERS: Internal Medicine Critical Care Medicine; Internal Medicine Gastroenterology; Physician Assistant; Preventive Medicine Aerospace Medicine; Admitting Provider Family Medicine; Emergency Provider Physician Assistant; PCP Family Medicine; Visit Provider Nurse Practitioner
PROC: 0DJ08ZZ Inspection of Upper Intestinal Tract, Via Natural or Artificial Opening Endoscopic (ICD-10-PCS; CPT 43235; principal; 2022-11-06 12:30)
DX: N30.00 Acute cystitis without hematuria (principal); G90.3 Multi-system degeneration of the autonomic nervous system; K29.70 Gastritis, unspecified, without bleeding; K63.5 Polyp of colon; K64.8 Other hemorrhoids; B96.20 Unspecified Escherichia coli [E. coli] as the cause of diseases classified elsewhere; Z20.822 Contact with and (suspected) exposure to COVID-19; Z28.21 Immunization not carried out because of patient refusal; D69.6 Thrombocytopenia, unspecified; E78.5 Hyperlipidemia, unspecified; E50.9 Vitamin A deficiency, unspecified; I10 Essential (primary) hypertension; K21.9 Gastro-esophageal reflux disease without esophagitis; K59.00 Constipation, unspecified; N32.81 Overactive bladder; R19.7 Diarrhea, unspecified; R60.0 Localized edema; R13.10 Dysphagia, unspecified; Z86.16 Personal history of COVID-19; Z99.3 Dependence on wheelchair; Z98.41 Cataract extraction status, right eye; Z98.42 Cataract extraction status, left eye; Z90.710 Acquired absence of both cervix and uterus; Z90.49 Acquired absence of other specified parts of digestive tract; Z66 Do not resuscitate; Z86.718 Personal history of other venous thrombosis and embolism
CPT/HCPCS: 36415; 71045; 74176; 80048; 80053; 81001; 83690; 83735; 83880; 84443; 84484; 85025; 85027; 85055; 87040; 87077; 87086; 87088; 87186; 87635; 88305; 88342; 93005; 93306; 93970; 96365; 96375; 96376; 99285; A9270; C8929; G0378; J0696; J1580; J1940; J2001; J2704; J7120; Q9957